=== PATIENT | female | born 1950 | race Caucasian/White ===

== ENCOUNTER → 2016-09-05 | Outpatient (CLI) | payer BC ==
[2016-09-05 10:11] LABS: Blood Urea Nitrogen 16 mg/dL (7-17); Non-African American GFR(MDRD) 58 (>60 ml/min/1.73 sqM)
--- NOTE | 2016-09-05 13:52 | MR ---
EXAMINATION TYPE: MR neck wo/w con DATE OF EXAM: 09/05/2016 COMPARISON: Previous CT scan of the neck dated 04/12/2015 HISTORY: benign neoplasm of major salivary gland, right CONTRAST: Standard multiplanar, multisequence MRI departmental protocol utilizing 20 mL intravenous MultiHance gadolinium contrast. FINDINGS: Visualized intracranial structures appear normal. The orbits appear normal. There is geomet darcy distortion near the axilla. Have sided previous biopsy there is a well-circumscribed heterogeneou sly enhancing 16.5 x 11.5 mm nodule. This may be the deep portion of the gland or it may be immediate ly adjacent to it. The remainder the right parotid gland appears normal as does the left. Submandibul ar glands appear normal. Pharyngeal, oropharyngeal and laryngeal soft tissues appear normal. There is no other significant reza nopathy. There is mild hypertrophic spondylosis in the cervical spine. IMPRESSION: Right-sided neck nodule as described. This may be within the deep substance of the parotid gland or m ay be adjacent to the parotid gland. I understand a tissue diagnosis is already been obtained.
== END | disposition home or self-care (01) ==
LOC: RADMRIMAIN 09:37
PROVIDERS: ATTEND Otolaryngology
DX: R22.1 Localized swelling, mass and lump, neck (principal)
CPT/HCPCS: 82565; 84520; 70543; 36415; A9577

== ENCOUNTER 2017-09-22 09:38 | Day surgery (SDC) | payer BC, MEDICARE ==
[2017-09-18 11:28] VITALS: BMI 31.0
[~2017-09-22 09:38] MED LIST: LACTATED RINGERS 1,000 ML IV SCH; LIDOCAINE 1% 20 ML VIAL (10MG/ML) FOR IV START INTRADERMA PRN
[2017-09-22 10:30] VITALS: TEMP 96.8
[2017-09-22] MEDS ORDERED: LIDOCAINE 1% INJ 10MG/ML (20 ML MDV) ONE (11:08)
[2017-09-22] MEDS ORDERED: PROPOFOL 10 MG/ML 20 ML VIAL IV ONE (11:08)
[2017-09-22 11:52] VITALS: BP 139/65; PULSE 65; RESP 12
--- NOTE | 2017-09-22 11:52 | P.PCN ---
Date of Procedure: 09/22/17 Procedure(s) Performed: Procedures: 1. Esophagogastroduodenoscopy and biopsy. 2. Total colonoscopy and biopsy. Preoperative diagnosis: Epigastric pain and change in bowel habits. Postoperative diagnosis: 1. Hiatal hernia with no obvious esophagitis or complicated reflux disease. 2. Mild antral gastritis. 3. Colon exam reveals less than ideal preparation but no obvious pathology. 4. Biopsies obtained from the right colon. Preparation: HalfLytely prep. Sedation: Was provided by anesthesia. Brief clinical history: The patient is a 67-year-old female who is scheduled for this evaluation because of epigastric and atypical chest pains and chronic reflux symptoms as well as history of colon polyps and change in bowel habits. Her last EGD was in June 2012 and her last colonoscopy was in October 2008. Procedure: With the patient on her left lateral decubitus position and after informed consent and adequate sedation, I passed the Olympus-GIF 160 video upper endoscope through the cricopharyngeus down the esophagus. GE junction was around 34 cm from the incisors and there was a 2 cm sliding hiatal hernia but there was no evidence of acute esophagitis or Urias's esophagus. The endoscope was then passed into the stomach which was insufflated with air and inspected in detail including the retroflex view in the cardia. Finally, the endoscope was passed through the pylorus into the duodenum. Pyloric channel did not show any ulcers. Duodenal bulb, post bulbar area and descending duodenum appeared within normal limits. There was some mottling and erythema in the antrum. I obtained biopsies from the duodenum, antrum and esophagus then the endoscope was withdrawn and I then proceeded to do colonoscopy. Perianal area did not show any fissures or fistulas. There were no masses felt on digital rectal examination. The Olympus CFQ 160L video colonoscope was then inserted in the rectum in the usual fashion and advanced to the cecum. The preparation was less than ideal but there was no obvious pathology. I obtained biopsies from the right colon before the endoscope was withdrawn. The patient tolerated the procedure well. Plan: The patient was reassured. With her history of polyps, I recommended repeat colonoscopy in 5 years. As far as her symptoms are concerned, we will make additional recommendations based on her course and biopsy results. We will keep you updated on her progress.
== END 2017-09-22 12:31 | disposition home or self-care (01) ==
LOC: ORWHC2ENDO 09:38
DX: K29.50 Unspecified chronic gastritis without bleeding (principal); K21.0 Gastro-esophageal reflux disease with esophagitis; R19.4 Change in bowel habit; I10 Essential (primary) hypertension; J45.909 Unspecified asthma, uncomplicated; G47.33 Obstructive sleep apnea (adult) (pediatric); Z79.890 Hormone replacement therapy; Z79.1 Long term (current) use of non-steroidal anti-inflammatories (NSAID)
CPT/HCPCS: 88305; 45380; 43239; J2001; J2704

== ENCOUNTER → 2017-10-17 | Outpatient (CLI) | payer MEDICARE ==
--- NOTE | 2017-10-19 13:32 | MR ---
EXAMINATION TYPE: MR neck wo/w con DATE OF EXAM: 10/17/2017 COMPARISON: 09/05/2016 HISTORY: 67-year-old female follow up benign neoplasm of major salivary gland, previous MRI 2016. Technique: Multiplanar, multisequence images of the neck were obtained before and after administratio n of 7.5 mL intravenous Gadavist gadolinium contrast. FINDINGS: Redemonstrated T2 hyperintense and T1 hypointense circumscribed lesion within the deep lobe of the ri ght parotid gland. This measures 1.3 x 1.6 x 1.2 cm versus 1.3 x 1.4 x 1.2 cm on 09/05/2016, not signi ficantly changed. This mass is lobulated with possible internal septation and shows diffuse homogeneo us enhancement similar to prior exam. A couple prominent left upper cervical lymph nodes posterior to the submandibular gland measuring up to 7 mm in short axis are also unchanged to less pronounced. No cervical lymphadenopathy by size criteria. No additional mass is seen. No enhancing lesion seen along the mucosal space. The parotid glands appear satisfactory. The thyroid gland is atrophic. IMPRESSION: Relatively stable homogeneously enhancing circumscribed mass in the deep right parotid space measurin g 1.6 x 1.3 x 1.2 cm versus 1.4 x 1.3 x 1.2 cm on 09/05/2016, not significantly changed. No new mass o r lymphadenopathy is identified.
== END | disposition home or self-care (01) ==
LOC: RADMRIMAIN 13:34
PROVIDERS: ATTEND Otolaryngology
DX: K11.8 Other diseases of salivary glands (principal)
CPT/HCPCS: 82565; 84520; 70543; 36415; A9581

== ENCOUNTER → 2018-03-17 | Outpatient (CLI) | payer MEDICARE | LOC: CPPFTMAIN 09:57 | PROVIDERS: ATTEND Family Medicine | DX: J44.9 Chronic obstructive pulmonary disease, unspecified (principal) | CPT/HCPCS: 94060; 94726; 94729 ==

== ENCOUNTER → 2018-03-20 | Outpatient (CLI) | payer MEDICARE ==
--- NOTE | 2018-03-23 10:56 | BD ---
EXAMINATION TYPE: Axial Bone Density DATE OF EXAM: 03/20/2018 COMPARISON: NONE CLINICAL HISTORY: Postmenopausal female. Osteoporosis screening. Height: 5 FT 2 IN Weight: 181 FRAX RISK QUESTIONS: History of Fracture in Adulthood: YES Secondary Osteoporosis: 3. Menopause before 45: YES RISK FACTORS HISTORY OF: Postmenopausal woman: TOTAL HYST AGE 37 Take estrogen and/or progesterone medications: TOOK HRT FOR ONE YEAR AFTER HYST Lost more than 2 inches in height since high school: YES MEDICATIONS: Thyroid Medications: YES Which medication: SYNTHROID How Long: OVER 40 YEARS Additional Medications: EFFEXOR, LASIX, L THYROXINE, THEOPHYLLINE, ATTENOLOL, PANTOPRAZOLE, ATORVASTA TIN Additional History: EXAM MEASUREMENTS: Bone mineral densitometry was performed using the mobiTeris System. Bone mineral density as measured about the Lumbar spine is: ----- L1-L4(G/cm2): 1.123 T Score Values are as follows: ----- L2: -1.0 ----- L3: 0.1 ----- L4: -0.5 ----- L1-L4: -0.5 BASELINE Bone mineral density about the R hip (g/cm2): 0.685 Bone mineral density about the L hip (g/cm2): 0.736 T Score values are as follows: -----R Neck: -2.5 -----L Neck: -2.2 -----R Total: -2.3 -----L Total: -2.2 BASELINE IMPRESSION: Osteopenia (T Score between -2.5 and -1). Values approach osteoporosis. There is slightly increased risk of fracture and the patient may be considered for treatment. Re-Screen 2-5 years. NOTE: T-SCORE=SD OF THE YOUNG ADULT MEAN.
--- NOTE | 2018-03-27 08:03 | MM ---
Reason for exam: screening (asymptomatic). History: Patient is postmenopausal. Took estrogen for 1 year beginning at age 37. MG 3D Screening Mammo W/Cad Bilateral CC and MLO view(s) were taken. There are scattered fibroglandular densities. Chronic nodularity in the right breast. Multiple nodes are present. No significant changes when compared with prior studies. ASSESSMENT: Negative, BI-RAD 1 RECOMMENDATION: Clinical management. Manage on a clinical basis the left lateral breast pain. Routine screening mammogram of both breasts in 1 year.
== END | disposition home or self-care (01) ==
LOC: RADMAMWWP 14:33
PROVIDERS: ATTEND Family Medicine
DX: Z12.31 Encounter for screening mammogram for malignant neoplasm of breast (principal); M85.851 Other specified disorders of bone density and structure, right thigh; M85.852 Other specified disorders of bone density and structure, left thigh; M85.88 Other specified disorders of bone density and structure, other site
CPT/HCPCS: 77063; 77067; 77080

== ENCOUNTER 2018-04-17 10:17 | Inpatient (IN) | payer MEDICARE ==
[2018-04-17] MEDS ORDERED: ONDANSETRON 4 MG/2 ML VIAL IVP STA (10:46)
[2018-04-17] MEDS ORDERED: MORPHINE SULFATE 4 MG/ML SYRINGE IV STA (10:46)
[2018-04-17] MEDS ORDERED: SODIUM CHLORIDE 0.9% 1,000 ML IV STA ×3 (10:46→14:30)
[2018-04-17] MEDS ORDERED: SODIUM CHLORIDE 0.9% 500 ML 500 ML IV STA (10:46)
[2018-04-17 11:21] LABS: HCT 47.2 % (34.0-46.0); HGB 15.6 gm/dL (11.4-16.0); MCHC 33.1 g/dL (31.0-37.0); MCV 84.6 fL (80.0-100.0); Mean Platelet Volume 8.8; Platelet Count 163 k/uL (150-450); RBC 5.58 m/uL (3.80-5.40); RDW 13.7 % (11.5-15.5); WBC 16.5 k/uL (3.8-10.6)
--- NOTE | 2018-04-17 11:21 | ED ---
Abdominal Pain HPI - General Chief Complaint: Abdominal Pain Stated Complaint: nvd, abdominal pain Time Seen by Provider: 04/17/18 10:22 Source: patient Mode of arrival: ambulatory Limitations: no limitations - History of Present Illness MD Complaint: abdominal pain, flank pain -: days(s) Location: RUQ Radiation: RUQ Migration to: no migration, R flank Severity: moderate Quality: aching Consistency: constant Improves With: nothing Worsens With: nothing Associated Symptoms: nausea - Related Data Home Medications Medication Instructions Recorded Confirmed Atenolol 25 mg PO HS 04/04/15 04/17/18 Furosemide [Lasix] 20 mg PO DAILY 04/04/15 04/17/18 Levothyroxine Sodium [Synthroid] 125 mcg PO QAM 04/04/15 04/17/18 Theophylline 24 Hour [Yonatan-24] 400 mg PO QAM 04/04/15 04/17/18 Theophylline Anhydrous 200 mg PO HS 09/18/17 04/17/18 [Theophylline] Nitroglycerin Sl Tabs [Nitrostat] 0.4 mg SUBLINGUAL Q5M PRN 04/17/18 04/17/18 Pantoprazole Sodium 40 mg PO DAILY 04/17/18 04/17/18 Venlafaxine HCl ER [Effexor XR] 75 mg PO HS 04/17/18 04/17/18 Allergies Allergy/AdvReac Type Severity Reaction Status Date / Time No Known Allergies Allergy Verified 04/17/18 11:26 Review of Systems ROS Statement: Those systems with pertinent positive or pertinent negative responses have been documented in the HPI. ROS Other: All systems not noted in ROS Statement are negative. Past Medical History Past Medical History: Asthma, GERD/Reflux, Hypertension, Sleep Apnea/CPAP/BIPAP Additional Past Medical History / Comment(s): stool urgency,some bleeding with stools,steroid injection to hip August 2017,no cpap History of Any Multi-Drug Resistant Organisms: None Reported Past Surgical History: Cholecystectomy, Hysterectomy Additional Past Surgical History / Comment(s): fatty tissue removed under left breast,bronchoscopy Past Anesthesia/Blood Transfusion Reactions: No Reported Reaction Additional Past Anesthesia/Blood Transfusion Reaction / Comment(s): no hx blood transfusion Past Psychological History: Depression Smoking Status: Former smoker Past Alcohol Use History: None Reported Past Drug Use History: None Reported - Past Family History Daughter(s) Family Medical History: Cancer Additional Family Medical History / Comment(s): form of leukemia Mother Family Medical History: Cancer Additional Family Medical History / Comment(s): lung Father Family Medical History: Cancer Additional Family Medical History / Comment(s): lung General Exam Limitations: no limitations General appearance: alert, in no apparent distress Head exam: Present: atraumatic, normocephalic, normal inspection Eye exam: Present: normal appearance, PERRL, EOMI. Absent: scleral icterus, conjunctival injection, periorbital swelling ENT exam: Present: normal exam, mucous membranes moist Neck exam: Present: normal inspection. Absent: tenderness, meningismus, lymphadenopathy Respiratory exam: Present: normal lung sounds bilaterally. Absent: respiratory distress, wheezes, rales, rhonchi, stridor Cardiovascular Exam: Present: regular rate, normal rhythm, normal heart sounds. Absent: systolic murmur, diastolic murmur, rubs, gallop, clicks GI/Abdominal exam: Present: soft, normal bowel sounds. Absent: distended, tenderness, guarding, rebound, rigid Extremities exam: Present: normal inspection, full ROM, normal capillary refill. Absent: tenderness, pedal edema, joint swelling, calf tenderness Back exam: Present: normal inspection Neurological exam: Present: alert, oriented X3, CN II-XII intact Psychiatric exam: Present: normal affect, normal mood Skin exam: Present: warm, dry, intact, normal color. Absent: rash Course Vital Signs 04/17/18 04/17/18 10:25 12:21 Temperature 97.7 F 97.9 F Pulse Rate 60 96 Respiratory 22 18 Rate Blood Pressure 97/63 102/65 O2 Sat by Pulse 97 96 Oximetry - Reevaluation(s) Reevaluation #1: 04/17/18 13:42 medical record is reviewed Reevaluation #2: 04/17/18 13:42 patient is improving with IVF, pain control Procedures - Sepsis Sepsis Focused Exam #1 Time Sepsis Criteria Met: 13:00 Sepsis Focused Exam Date: 04/17/18 Sepsis Focused Exam Time: 13:15 Sepsis Focused Exam Complete: Yes Vital Signs & RN Notes Reviewed: Yes Capillary Refill: < 2 Seconds: Fingers, Toes Peripheral Pulses: Normal: Radial (R), Radial (L), Posterior Tibialis (R), Posterior Tibialis (L), Dorsalis Pedis (R), Dorsalis Pedis (L) Skin Color: Pallor Respiratory Exam: normal lung sounds Cardiovascular Exam: regular rate Medical Decision Making - Lab Data Result diagrams: 04/17/18 11:03 04/17/18 11:03 Lab Results 04/17/18 04/17/18 04/17/18 Range/Units 11:03 11:03 11:03 WBC 16.5 H (3.8-10.6) k/uL RBC 5.58 H (3.80-5.40) m/uL Hgb 15.6 (11.4-16.0) gm/dL Hct 47.2 H (34.0-46.0) % MCV 84.6 (80.0-100.0) fL MCH 28.0 (25.0-35.0) pg MCHC 33.1 (31.0-37.0) g/dL RDW 13.7 (11.5-15.5) % Plt Count 163 (150-450) k/uL Neutrophils % (Manual) 66 % Band Neutrophils % 24 % Lymphocytes % (Manual) 4 % Monocytes % (Manual) 3 % Metamyelocytes % 4 % Myelocytes % 1 % Neutrophils # (Manual) 14.80 H (1.3-7.7) k/uL Lymphocytes # (Manual) 0.66 L (1.0-4.8) k/uL Monocytes # (Manual) 0.50 (0-1.0) k/uL Metamyelocytes # (Man) 0.66 H (0) k/uL Myelocytes # (Manual) 0.17 H (0) k/uL Nucleated RBCs 0 (0-0) /100 WBC Manual Slide Review Performed Toxic Granulation Present Toxic Vacuolation Present Large Platelets Present RBC Morphology Normal Sodium 138 (137-145) mmol/L Potassium 3.7 (3.5-5.1) mmol/L Chloride 101 (98-107) mmol/L Carbon Dioxide 18 L (22-30) mmol/L Anion Gap 19 mmol/L BUN 45 H (7-17) mg/dL Creatinine 2.39 H (0.52-1.04) mg/dL Est GFR (CKD-EPI)AfAm 24 (>60 ml/min/1.73 sqM) Est GFR (CKD-EPI)NonAf 21 (>60 ml/min/1.73 sqM) Glucose 114 H (74-99) mg/dL Plasma Lactic Acid Percy 6.9 H* (0.7-2.0) mmol/L Calcium 9.1 (8.4-10.2) mg/dL Total Bilirubin 2.2 H (0.2-1.3) mg/dL AST 25 (14-36) U/L ALT 24 (9-52) U/L Alkaline Phosphatase 72 (38-126) U/L Total Protein 6.3 (6.3-8.2) g/dL Albumin 3.6 (3.5-5.0) g/dL Amylase 38 (30-110) U/L Lipase 29 (23-300) U/L Urine Color Urine Appearance (Clear) Urine pH (5.0-8.0) Ur Specific [place] (1.001-1.035) Urine Protein (Negative) Urine Glucose (UA) (Negative) Urine Ketones (Negative) Urine Blood (Negative) Urine Nitrite (Negative) Urine Bilirubin (Negative) Urine Urobilinogen (<2.0) mg/dL Ur Leukocyte Esterase (Negative) Urine RBC (0-5) /hpf Urine WBC (0-5) /hpf Urine WBC Clumps (None) /hpf Ur Squamous Epith Cells (0-4) /hpf Amorphous Sediment (None) /hpf Urine Mucus (None) /hpf 04/17/18 Range/Units 12:05 WBC (3.8-10.6) k/uL RBC (3.80-5.40) m/uL Hgb (11.4-16.0) gm/dL Hct (34.0-46.0) % MCV (80.0-100.0) fL MCH (25.0-35.0) pg MCHC (31.0-37.0) g/dL RDW (11.5-15.5) % Plt Count (150-450) k/uL Neutrophils % (Manual) % Band Neutrophils % % Lymphocytes % (Manual) % Monocytes % (Manual) % Metamyelocytes % % Myelocytes % % Neutrophils # (Manual) (1.3-7.7) k/uL Lymphocytes # (Manual) (1.0-4.8) k/uL Monocytes # (Manual) (0-1.0) k/uL Metamyelocytes # (Man) (0) k/uL Myelocytes # (Manual) (0) k/uL Nucleated RBCs (0-0) /100 WBC Manual Slide Review Toxic Granulation Toxic Vacuolation Large Platelets RBC Morphology Sodium (137-145) mmol/L Potassium (3.5-5.1) mmol/L Chloride (98-107) mmol/L Carbon Dioxide (22-30) mmol/L Anion Gap mmol/L BUN (7-17) mg/dL Creatinine (0.52-1.04) mg/dL Est GFR (CKD-EPI)AfAm (>60 ml/min/1.73 sqM) Est GFR (CKD-EPI)NonAf (>60 ml/min/1.73 sqM) Glucose (74-99) mg/dL Plasma Lactic Acid Percy (0.7-2.0) mmol/L Calcium (8.4-10.2) mg/dL Total Bilirubin (0.2-1.3) mg/dL AST (14-36) U/L ALT (9-52) U/L Alkaline Phosphatase (38-126) U/L Total Protein (6.3-8.2) g/dL Albumin (3.5-5.0) g/dL Amylase (30-110) U/L Lipase (23-300) U/L Urine Color Dark Yellow Urine Appearance Turbid H (Clear) Urine pH 5.0 (5.0-8.0) Ur Specific [place] 1.017 (1.001-1.035) Urine Protein 1+ H (Negative) Urine Glucose (UA) Trace H (Negative) Urine Ketones Trace H (Negative) Urine Blood Trace H (Negative) Urine Nitrite Negative (Negative) Urine Bilirubin Negative (Negative) Urine Urobilinogen <2.0 (<2.0) mg/dL Ur Leukocyte Esterase Large H (Negative) Urine RBC 18 H (0-5) /hpf Urine WBC 85 H (0-5) /hpf Urine WBC Clumps Occasional H (None) /hpf Ur Squamous Epith Cells 23 H (0-4) /hpf Amorphous Sediment Rare H (None) /hpf Urine Mucus Few H (None) /hpf Critical Care Time Critical Care Time: Yes Total Critical Care Time: 31 Disposition Clinical Impression: Abdominal pain, Community acquired bacterial pneumonia, ARF (acute renal failure), Sepsis, Severe sepsis Disposition: ADMITTED IP TO THIS HOSP Condition: Serious Is patient prescribed a controlled substance at d/c from ED?: No Referrals: Laura Duenas DO [Primary Care Provider] - 1-2 days
[2018-04-17 11:28] LABS: Albumin 3.6 g/dL (3.5-5.0); Calcium 9.1 mg/dL (8.4-10.2); Potassium 3.7 mmol/L (3.5-5.1); Total Bilirubin 2.2 mg/dL (0.2-1.3); Total Protein 6.3 g/dL (6.3-8.2)
[2018-04-17 11:52] LABS: Band Neutrophils % 24 %; Lymphocytes # (M) 0.66 k/uL (1.0-4.8); Metamyelocytes # (M) 0.66 k/uL (0); Metamyelocytes % 4 %; Myelocytes # (M) 0.17 k/uL (0); Myelocytes % 1 %; Neutrophils % (M) 66 %; Nucleated Red Blood Cells 0 /100 WBC (0-0); Total Cells Counted 200
[2018-04-17 11:53] LABS: Toxic Granulation Present; Toxic Vacuolation Present
[2018-04-17 11:54] LABS: Large Platelets Present
--- NOTE | 2018-04-17 12:25 | CT ---
EXAMINATION TYPE: CT abdomen pelvis wo con DATE OF EXAM: 04/17/2018 HISTORY: Right sided abdominal pain CT DLP: 543.3 mGycm. Automated Exposure Control for Dose Reduction was Utilized. TECHNIQUE: CT scan of the abdomen and pelvis is performed without oral or IV contrast. COMPARISON: NONE FINDINGS: Within the limitations of a non-contrast study, the following observations are made. LUNG BASES: There is right basilar consolidation with air bronchograms, correlate for focal pneumonia . There is tiny pericardial effusion. LIVER/GB: Liver is diffusely low dense consistent with fatty infiltration. Cholecystectomy clips are identified. PANCREAS: No significant abnormality is seen. SPLEEN: No significant abnormality is seen. ADRENALS: No significant abnormality is seen. KIDNEYS: No renal calculi or hydronephrosis is evident bilaterally. Bladder is empty. BOWEL: Evaluation bowel suboptimal secondary to lack of enteric contrast. No suspicious small or larg e bowel dilatation is present. GENITAL ORGANS: Uterus is surgically absent or markedly atrophic. A few scattered pelvic phleboliths are present LYMPH NODES: No greater than 1cm abdominal or pelvic lymph nodes are appreciated. OSSEOUS STRUCTURES: Mild to moderate multilevel spurring in the thoracic spine is seen. There is mild to moderate narrowing of both hip joints. OTHER: Mild/moderate calcified plaque of aorta extends into branch vessels. IMPRESSION: Posterior right lower lobe consolidation with air bronchograms suspicious for focal right basilar pneumonia may be accounting for patient's symptoms. Correlate clinically.
[2018-04-17 12:26] LABS: Amorphous Sediment,Urine Rare /hpf; Appearance,Urine Turbid (Clear); Bilirubin,Urine Negative (Negative); Blood,Urine Trace (Negative); Color,Urine Dark Yellow; Glucose,Urine (UA) Trace (Negative); Ketones,Urine Trace (Negative); Leukocyte Esterase,Urine Large (Negative); Mucus,Urine Few /hpf; Nitrite,Urine Negative (Negative); Protein,Urine 1+ (Negative); RBC,Urine 18 /hpf (0-5); Specific Gravity,Urine 1.017 (1.001-1.035); Squamous Epithelial Cell,Urine 23 /hpf (0-4); Urobilinogen,Urine <2.0 mg/dL (<2.0); WBC,Urine 85 /hpf (0-5)
[2018-04-17] MEDS ORDERED: PNEUMONIA PROTOCOL UTILIZED 1 EACH MISC PO PRN (13:31)
[2018-04-17] MEDS ORDERED: AZITHROMYCIN 500 MG in SODIUM CHLORIDE 0.9% 250 ML IVPB STA (13:36)
[2018-04-17] MEDS ORDERED: DILTIAZEM DRIP BOLUS FROM BAG 1 MG SOLN IV ONE ×2 (14:22→15:02)
[2018-04-17] MEDS ORDERED: DILTIAZEM 125 MG in SODIUM CHLORIDE 0.9% 100 ML IV SCH (14:30)
[2018-04-17] MEDS: IPRATROPIUM-ALBUTEROL 3 ML NEB INHALATION SCH ×2 (16:01→20:12)
[2018-04-17] MEDS ORDERED: HEPARIN SODIUM,PORCINE 5,000 UNIT/ML 1 ML VIAL IV ONE (16:56)
[2018-04-17] MEDS ORDERED: HEPARIN SODIUM,PORCINE 5,000 UNIT/ML 1 ML VIAL IV PRN (16:56)
[2018-04-17] MEDS: SODIUM CHLORIDE 0.9% 1,000 ML IV SCH ×2 (17:00→20:00)
[2018-04-17] MEDS ORDERED: HEPARIN SOD,PORK IN 0.45% NACL 25,000 UNIT in 0.45% NACL 1 250ML.BAG IV SCH (17:00)
[2018-04-17 17:43] LABS: INR 1.1 (<1.2); Partial Thromboplastin Time 38.4 sec (22.0-30.0); Prothrombin Time 11.4 sec (9.0-12.0)
--- NOTE | 2018-04-17 18:37 | P.CNPUL ---
History of Present Illness Consult date: 04/17/18 Requesting physician: Helena Elias Reason for consult: dyspnea, abnormal CXR/CT (Right-sided chest pain) Chief complaint: Shortness of breath, cough, right-sided chest discomfort History of present illness: This is a very pleasant 67-year-old female patient who follows with Dr. Duenas as her primary care physician. She has a history of mild intermittent chronic bronchial asthma, esophageal reflux disease, hypertension, hypothyroidism. She has a remote history of smoking. He had recently been complaining of flulike symptoms some nausea no significant vomiting. She also has having some right upper quadrant pain that was moving into her right flank area. She was had undergone a CAT scan of the abdomen and pelvis which revealed a posterior right lower lobe consolidation with air bronchograms suspicious for focal right basilar pneumonia. We count 16.5. Creatinine 2.39. Potassium 6.9. Urinalysis with elevated WBCs. He was quite fatigued and lethargic. In the emergency room she received received 3 L of IV fluid resuscitation. She has been initiated on ceftriaxone and azithromycin. She also had an episode of atrial fibrillation with rapid ventricular response was initiated on a heparin drip. She is currently in normal sinus rhythm. She is seen today in consultation in the intensive care unit. She is awake and alert in no acute distress. She is maintaining good O2 saturations in the 90s on 2 L/ m per nasal cannula. She's been afebrile. Lactic improved to 3.3. Review of Systems 14 point review of system was conducted. All negative other than as mentioned in HPI. Past Medical History Past Medical History: Asthma, GERD/Reflux, Hypertension, Sleep Apnea/CPAP/BIPAP Additional Past Medical History / Comment(s): stool urgency,some bleeding with stools,steroid injection to hip August 2017,no cpap History of Any Multi-Drug Resistant Organisms: None Reported Past Surgical History: Cholecystectomy, Hysterectomy Additional Past Surgical History / Comment(s): fatty tissue removed under left breast,bronchoscopy Past Anesthesia/Blood Transfusion Reactions: No Reported Reaction Additional Past Anesthesia/Blood Transfusion Reaction / Comment(s): no hx blood transfusion Past Psychological History: Depression Smoking Status: Former smoker Past Alcohol Use History: None Reported Past Drug Use History: None Reported - Past Family History Daughter(s) Family Medical History: Cancer Additional Family Medical History / Comment(s): form of leukemia Mother Family Medical History: Cancer Additional Family Medical History / Comment(s): lung Father Family Medical History: Cancer Additional Family Medical History / Comment(s): lung Medications and Allergies Home Medications Medication Instructions Recorded Confirmed Type Atenolol 25 mg PO HS 04/04/15 04/17/18 History Furosemide [Lasix] 20 mg PO DAILY 04/04/15 04/17/18 History Levothyroxine Sodium [Synthroid] 125 mcg PO QAM 04/04/15 04/17/18 History Theophylline 24 Hour [Yonatan-24] 400 mg PO QAM 04/04/15 04/17/18 History Theophylline Anhydrous 200 mg PO HS 09/18/17 04/17/18 History [Theophylline] Nitroglycerin Sl Tabs [Nitrostat] 0.4 mg SUBLINGUAL Q5M PRN 04/17/18 04/17/18 History Pantoprazole Sodium 40 mg PO DAILY 04/17/18 04/17/18 History Venlafaxine HCl ER [Effexor XR] 75 mg PO HS 04/17/18 04/17/18 History Allergies Allergy/AdvReac Type Severity Reaction Status Date / Time No Known Allergies Allergy Verified 04/17/18 11:26 Physical Exam Vitals: Vital Signs Temp Pulse Resp BP Pulse Ox 04/17/18 14:59 97.9 F 142 H 18 113/74 04/17/18 14:45 154 H 18 114/81 04/17/18 14:26 158 H 18 155/90 04/17/18 12:21 97.9 F 96 18 102/65 96 04/17/18 10:25 97.7 F 60 22 97/63 97 Intake and Output 04/17/18 04/17/18 04/17/18 06:59 14:59 22:59 Other: Weight 81.647 kg GENERAL EXAM: Alert, active, comfortable in no apparent distress. On nasal canula 2 L. HEAD: Normocephalic. EYES: Normal reaction of pupils, equal size. NOSE: Clear with pink turbinates. THROAT: No erythema or exudates. NECK: No masses, no JVD. CHEST: No chest wall deformity. LUNGS: Equal air entry with crackles in the right posterior base.. CVS: S1 and S2 normal with no audible murmur, regular rhythm. ABDOMEN: No hepatosplenomegaly, normal bowel sounds, no guarding or rigidity. SPINE: No scoliosis or deformity SKIN: No rashes CENTRAL NERVOUS SYSTEM: No focal deficits, tone is normal in all 4 extremities. EXTREMITIES: There is no peripheral edema. No clubbing, no cyanosis. Peripheral pulses are intact. Results - Laboratory Findings CBC and BMP: 04/17/18 11:03 04/17/18 11:03 PT/INR, D-dimer PT 11.4 sec (9.0-12.0) 04/17/18 11:03 INR 1.1 (<1.2) 04/17/18 11:03 Abnormal lab findings: Abnormal Labs 04/17/18 04/17/18 04/17/18 11:03 11:03 11:03 WBC 16.5 H RBC 5.58 H Hct 47.2 H Neutrophils # (Manual) 14.80 H Lymphocytes # (Manual) 0.66 L Metamyelocytes # (Man) 0.66 H Myelocytes # (Manual) 0.17 H APTT Carbon Dioxide 18 L BUN 45 H Creatinine 2.39 H Glucose 114 H Plasma Lactic Acid Percy 6.9 H* Total Bilirubin 2.2 H Urine Appearance Urine Protein Urine Glucose (UA) Urine Ketones Urine Blood Ur Leukocyte Esterase Urine RBC Urine WBC Urine WBC Clumps Ur Squamous Epith Cells Amorphous Sediment Urine Mucus 04/17/18 04/17/18 04/17/18 11:03 12:05 14:50 WBC RBC Hct Neutrophils # (Manual) Lymphocytes # (Manual) Metamyelocytes # (Man) Myelocytes # (Manual) APTT 38.4 H Carbon Dioxide BUN Creatinine Glucose Plasma Lactic Acid Percy 3.3 H* Total Bilirubin Urine Appearance Turbid H Urine Protein 1+ H Urine Glucose (UA) Trace H Urine Ketones Trace H Urine Blood Trace H Ur Leukocyte Esterase Large H Urine RBC 18 H Urine WBC 85 H Urine WBC Clumps Occasional H Ur Squamous Epith Cells 23 H Amorphous Sediment Rare H Urine Mucus Few H - Diagnostic Findings Chest x-ray: image reviewed CT scan - chest: image reviewed Assessment and Plan Assessment: Impression: #1 Right-sided chest discomfort secondary to an acute exacerbation of community- acquired right lower lobe pneumonia. Currently on ceftriaxone and azithromycin. #2 Lactic acidosis secondary to above. Status post 4 L IV fluid resuscitation. Current lactic 3.3. #3 Acute renal failure suspect secondary to dehydration and hypotension current creatinine 2.39. #4 Leukocytosis secondary to above. #5 Suspected urinary tract infection, cultures pending. #6 Brief episode of atrial fibrillation with rapid ventricular response, currently in normal sinus rhythm. #7 Mild intermittent chronic bronchial asthma, currently inactive and stable. #8 Remote history of chronic tobacco dependence. #9 Hypothyroidism. #10 Obesity Plan: The patient was seen and evaluated by Dr. Omalley. We'll continue ceftriaxone and azithromycin for now. Give an additional bolus of IV fluid resuscitation. Hold off on heparin drip for now. Patient remains in sinus rhythm. Continue to monitor her here closely in the intensive care unit. Resume home medications. Hold off on beta blockers until pressure improves. Discontinue theophylline. We will continue to follow and make further recommendations based on her clinical status. I, the cosigning physician, performed a history & physical examination of the patient. Lungs sounds scattered rhonchi more so on the right posterior base. Maintaining good O2 saturations in the 90s on 2 L/m per nasal cannula. I discussed the assessment and plan of care with my nurse practitioner, Nusrat Cha. I attest to the above consultation as dictated by her. Time with Patient: Greater than 30
[2018-04-17] MEDS ORDERED: NITROGLYCERIN SL TABS 0.4 MG TAB SUBLINGUAL PRN (18:38)
[2018-04-17] MEDS: VENLAFAXINE HCL ER 75 MG CAP PO SCH (21:51)
[2018-04-17] MEDS: ATENOLOL 25 MG TAB PO SCH (21:51)
--- NOTE | 2018-04-17 23:09 | P.HPIM ---
History of Present Illness H&P Date: 04/17/18 Chief Complaint: RUQ ABD PAIN Very pleasant 67 y/o female comes in with c/o RUQ abd pain. She says that she has been having flu like symptoms for the past few days along with diarrhea. She started having abdominal pain in the RUQ and right flank area. She thus came into the ER for further evaluation and managment. She did not c/o chest pain, racing heart,no abd pain, no nausea, no vomiting, no headache, no itch or rash. ER course : Patient had lab work done, the results of which are below. CT abd and pelvis was done which shows right basilar consolidation. While in the ER, she went into AFIB WITH RVR. She was started on antibiotics, heparin and cardizem, IVfluids bolus and started on NS at 150cc/hr/ Review of Systems All systems: negative Past Medical History Past Medical History: Asthma, GERD/Reflux, Hypertension, Sleep Apnea/CPAP/BIPAP Additional Past Medical History / Comment(s): stool urgency,some bleeding with stools,steroid injection to hip August 2017,no cpap History of Any Multi-Drug Resistant Organisms: None Reported Past Surgical History: Cholecystectomy, Hysterectomy Additional Past Surgical History / Comment(s): fatty tissue removed under left breast,bronchoscopy Past Anesthesia/Blood Transfusion Reactions: No Reported Reaction Additional Past Anesthesia/Blood Transfusion Reaction / Comment(s): no hx blood transfusion Past Psychological History: Depression Smoking Status: Former smoker Past Alcohol Use History: None Reported Past Drug Use History: None Reported - Past Family History Daughter(s) Family Medical History: Cancer Additional Family Medical History / Comment(s): form of leukemia Mother Family Medical History: Cancer Additional Family Medical History / Comment(s): lung Father Family Medical History: Cancer Additional Family Medical History / Comment(s): lung Medications and Allergies Home Medications Medication Instructions Recorded Confirmed Type Atenolol 25 mg PO HS 04/04/15 04/17/18 History Furosemide [Lasix] 20 mg PO DAILY 04/04/15 04/17/18 History Levothyroxine Sodium [Synthroid] 125 mcg PO QAM 04/04/15 04/17/18 History Theophylline 24 Hour [Yonatan-24] 400 mg PO QAM 04/04/15 04/17/18 History Theophylline Anhydrous 200 mg PO HS 09/18/17 04/17/18 History [Theophylline] Nitroglycerin Sl Tabs [Nitrostat] 0.4 mg SUBLINGUAL Q5M PRN 04/17/18 04/17/18 History Pantoprazole Sodium 40 mg PO DAILY 04/17/18 04/17/18 History Venlafaxine HCl ER [Effexor XR] 75 mg PO HS 04/17/18 04/17/18 History Allergies Allergy/AdvReac Type Severity Reaction Status Date / Time No Known Allergies Allergy Verified 04/17/18 11:26 Physical Exam Vitals: Vital Signs Temp Pulse Resp BP Pulse Ox 04/17/18 20:25 87 04/17/18 20:14 90 04/17/18 19:10 86 19 92 L 04/17/18 19:00 86 13 93 L 04/17/18 18:50 86 33 H 93 L 04/17/18 18:40 88 20 93 L 04/17/18 18:30 88 19 93 L 04/17/18 18:20 85 19 93 L 04/17/18 18:10 89 16 91 L 04/17/18 18:00 91 17 91 L 04/17/18 17:50 89 20 91 L 04/17/18 17:40 95 19 92 L 04/17/18 17:30 97 20 91 L 04/17/18 17:20 97 19 92 L 04/17/18 17:10 95 22 91 L 04/17/18 17:00 98 18 91 L 04/17/18 16:50 161 H 17 89 L 04/17/18 16:40 163 H 17 90 L 04/17/18 16:30 137 H 16 88 L 04/17/18 16:20 152 H 19 04/17/18 16:19 97.7 F 158 H 20 97 04/17/18 15:30 100/71 04/17/18 15:20 142 H 18 93/74 89 L 04/17/18 15:10 158 H 16 112/67 88 L 04/17/18 15:00 134 H 13 113/74 04/17/18 14:59 97.9 F 142 H 18 113/74 04/17/18 14:50 156 H 18 114/81 04/17/18 14:45 154 H 18 114/81 04/17/18 14:40 161 H 18 122/90 04/17/18 14:30 170 H 21 155/90 04/17/18 14:26 158 H 18 155/90 04/17/18 14:20 168 H 15 135/70 04/17/18 14:10 154 H 18 105/67 04/17/18 14:00 161 H 14 105/67 04/17/18 13:50 97 21 105/67 04/17/18 13:40 92 13 105/67 04/17/18 13:30 97 22 108/66 89 L 04/17/18 13:20 93 16 108/66 94 L 04/17/18 13:10 96 14 108/66 94 L 04/17/18 13:00 94 16 108/66 93 L 04/17/18 12:50 98 10 L 104/64 90 L 04/17/18 12:40 98 13 104/64 92 L 04/17/18 12:30 98 12 102/65 04/17/18 12:21 97.9 F 96 18 102/65 96 04/17/18 12:20 97 23 102/65 94 L 04/17/18 12:10 102/65 04/17/18 12:00 102/65 04/17/18 11:50 102 H 20 102/65 91 L 04/17/18 11:40 104 H 20 102/65 91 L 04/17/18 11:30 103 H 18 102/63 90 L 04/17/18 11:20 102 H 55 H 102/63 90 L 04/17/18 11:10 105 H 19 102/63 91 L 04/17/18 11:00 105/66 91 L 04/17/18 10:50 102/57 92 L 04/17/18 10:45 102/57 89 L 04/17/18 10:25 97.7 F 60 22 97/63 97 Intake and Output 04/17/18 04/17/18 04/17/18 06:59 14:59 22:59 Intake Total 2250 Output Total 250 Balance 2000 Intake: Intake, IV Titration 1700 Amount Sodium Chloride 0.9% 1, 600 000 ml @ 150 mls/hr IV . Q6H40M [facility] Rx#:[id number] Sodium Chloride 0.9% 1, 1000 000 ml @ 999 mls/hr IV . Q1H1M STA Rx#:[id number] cefTRIAXone 1 gm In 100 Sodium Chloride 0.9% 50 ml @ 100 mls/hr IVPB Q24H [facility] Rx#:[id number] Oral 550 Output: Urine 250 Other: Voiding Method Indwelling Catheter Weight 81.647 kg - Constitutional General appearance: cooperative, mild distress - EENT Eyes: PERRLA - Neck Neck: no lymphadenopathy, no normal ROM, no other, no rigidity, no stridor, no thyromegaly - Respiratory Respiratory: right: diminished - Cardiovascular Heart rate: 150 Rhythm: irregularly irregular Heart sounds: normal: S1, S2 - Gastrointestinal General gastrointestinal: absent bowel sounds, normal bowel sounds Localized gastrointestinal: tender: RUQ - Neurologic Neurologic: CNII-XII intact - Musculoskeletal Musculoskeletal: strength equal bilaterally - Psychiatric Psychiatric: A&O x's 3, appropriate affect Results CBC & Chem 7: 04/17/18 11:03 04/17/18 11:03 Labs: Abnormal Lab Results - Last 24 Hours (Table) 04/17/18 04/17/18 04/17/18 Range/Units 11:03 11:03 11:03 WBC 16.5 H (3.8-10.6) k/uL RBC 5.58 H (3.80-5.40) m/uL Hct 47.2 H (34.0-46.0) % Neutrophils # (Manual) 14.80 H (1.3-7.7) k/uL Lymphocytes # (Manual) 0.66 L (1.0-4.8) k/uL Metamyelocytes # (Man) 0.66 H (0) k/uL Myelocytes # (Manual) 0.17 H (0) k/uL APTT (22.0-30.0) sec Carbon Dioxide 18 L (22-30) mmol/L BUN 45 H (7-17) mg/dL Creatinine 2.39 H (0.52-1.04) mg/dL Glucose 114 H (74-99) mg/dL Plasma Lactic Acid Percy 6.9 H* (0.7-2.0) mmol/L Total Bilirubin 2.2 H (0.2-1.3) mg/dL Urine Appearance (Clear) Urine Protein (Negative) Urine Glucose (UA) (Negative) Urine Ketones (Negative) Urine Blood (Negative) Ur Leukocyte Esterase (Negative) Urine RBC (0-5) /hpf Urine WBC (0-5) /hpf Urine WBC Clumps (None) /hpf Ur Squamous Epith Cells (0-4) /hpf Amorphous Sediment (None) /hpf Urine Mucus (None) /hpf 04/17/18 04/17/18 04/17/18 Range/Units 11:03 12:05 14:50 WBC (3.8-10.6) k/uL RBC (3.80-5.40) m/uL Hct (34.0-46.0) % Neutrophils # (Manual) (1.3-7.7) k/uL Lymphocytes # (Manual) (1.0-4.8) k/uL Metamyelocytes # (Man) (0) k/uL Myelocytes # (Manual) (0) k/uL APTT 38.4 H (22.0-30.0) sec Carbon Dioxide (22-30) mmol/L BUN (7-17) mg/dL Creatinine (0.52-1.04) mg/dL Glucose (74-99) mg/dL Plasma Lactic Acid Percy 3.3 H* (0.7-2.0) mmol/L Total Bilirubin (0.2-1.3) mg/dL Urine Appearance Turbid H (Clear) Urine Protein 1+ H (Negative) Urine Glucose (UA) Trace H (Negative) Urine Ketones Trace H (Negative) Urine Blood Trace H (Negative) Ur Leukocyte Esterase Large H (Negative) Urine RBC 18 H (0-5) /hpf Urine WBC 85 H (0-5) /hpf Urine WBC Clumps Occasional H (None) /hpf Ur Squamous Epith Cells 23 H (0-4) /hpf Amorphous Sediment Rare H (None) /hpf Urine Mucus Few H (None) /hpf Assessment and Plan Assessment: - Sepsis - Community aquired pneumonia causing sepsis - Afib with RVR currently in sinus rythm - Acute renal failure - Lactic acidosis - History of tobacco use - Plan - Will admit the patient to ICU - Continue antibiotics - On heparin, Rate is NSR now. - Continue iv fluids - DVT and GI ppx - Will order for labs in the AM - Expected lenght of stay is more than 2 minights - Patient is full code Time with Patient: Greater than 30
[2018-04-18 00:03] VITALS: BMI 30.9
[2018-04-18] MEDS: HEPARIN SODIUM,PORCINE 5,000 UNIT/ML 1 ML VIAL SQ SCH ×4 (01:30→23:19)
[2018-04-18] MEDS: ACETAMINOPHEN TAB 325 MG TAB PO PRN ×2 (04:04→13:40)
[2018-04-18] MEDS: SODIUM CHLORIDE 0.9% 1,000 ML IV SCH ×2 (04:06→13:38)
[2018-04-18] MEDS: IPRATROPIUM-ALBUTEROL 3 ML NEB INHALATION SCH ×4 (05:12→19:38)
[2018-04-18] MEDS: LEVOTHYROXINE 125 MCG TAB PO SCH (06:23)
[2018-04-18 06:25] LABS: Basophils % (A) 0 %; Eosinophils # (A) 0.1 k/uL (0-0.7); Eosinophils % (A) 1 %; HCT 36.2 % (34.0-46.0); Lymphocytes # (A) 0.9 k/uL (1.0-4.8); Lymphocytes % (A) 8 %; MCH 27.3 pg (25.0-35.0); MCHC 31.6 g/dL (31.0-37.0); MCV 86.5 fL (80.0-100.0); Mean Platelet Volume 8.7; Monocytes # (A) 0.2 k/uL (0-1.0); Monocytes % (A) 2 %; Neutrophils # (A) 10.3 k/uL (1.3-7.7); Neutrophils % (A) 88 %; Platelet Count 139 k/uL (150-450); RBC 4.19 m/uL (3.80-5.40); RDW 13.8 % (11.5-15.5); WBC 11.7 k/uL (3.8-10.6)
[2018-04-18 06:28] LABS: HGB 11.4 gm/dL (11.4-16.0)
[2018-04-18 06:48] LABS: Albumin 2.3 g/dL (3.5-5.0); Calcium 7.8 mg/dL (8.4-10.2); Potassium 3.8 mmol/L (3.5-5.1); Total Bilirubin 0.9 mg/dL (0.2-1.3); Total Protein 4.5 g/dL (6.3-8.2)
--- NOTE | 2018-04-18 07:20 | XR ---
EXAMINATION TYPE: XR chest 1V portable DATE OF EXAM: 04/18/2018 CLINICAL HISTORY: Difficulty breathing progress study. TECHNIQUE: Single AP portable upright view of the chest is obtained. COMPARISON: None. FINDINGS: The cardiomediastinal silhouette is within normal limits. Small bilateral pleural effusions are evident. There is right basilar and right midlung airspace dise ase. Fluid is seen layering along the right minor fissure. No pneumothorax. Osseous structures are wi thout acute pathology. Limited evaluation the upper abdomen is unremarkable. IMPRESSION: 1. Bilateral, right greater than left pleural effusions. 2. Right mid and lower lung airspace disease. Infectious etiology such as pneumonia should be conside red.
[2018-04-18] MEDS: PANTOPRAZOLE 40 MG TABLET PO SCH (08:20)
[2018-04-18] MEDS ORDERED: ENOXAPARIN 40 MG/0.4 ML SYRINGE SQ SCH (09:00)
--- NOTE | 2018-04-18 11:02 | P.PN ---
Subjective Very pleasant 71-year-old female admitted yesterday for shortness of breath and right upper quadrant and right flank pain. CT abdomen shows right lower lobe pneumonia. She also had episode of atrial fibrillation and RVR while in the ER. Her lactic acid was elevated yesterday. She was given IV fluid boluses, was started on heparin and Cardizem drip and antibiotics. She was admitted to ICU for further care. On 04/16/2018 Patient says that she seemed much better than yesterday. She still on nasal cannula Heparin Cardizem off right now She is in normal sinus rhythm She does not complain of any chest pain or racing heart He said that she still short of breath and is coughing but much better than yesterday Pain in right upper quadrant flank is also better than yesterday Objective - Vital Signs Vital signs: Vital Signs Temp 99 F 04/18/18 04:01 Pulse 68 04/18/18 08:00 Resp 16 04/18/18 08:00 BP 97/58 04/18/18 08:00 Pulse Ox 95 04/18/18 08:00 Intake & Output 04/17/18 04/18/18 04/18/18 18:59 06:59 18:59 Intake Total 2100 3810 550 Output Total 210 650 190 Balance 1890 3160 360 Weight 81.647 kg 85 kg Intake: IV 2500 450 Sodium Chloride 0.9% 1, 1500 450 000 ml @ 150 mls/hr IV . Q6H40M [facility] Rx#:[id number] Sodium Chloride 0.9% 1, 1000 000 ml @ 999 mls/hr IV . Q1H1M [facility]A Rx#:[id number] Intake, IV Titration 1550 150 Amount Sodium Chloride 0.9% 1, 450 150 000 ml @ 150 mls/hr IV . Q6H40M [facility] Rx#:[id number] Sodium Chloride 0.9% 1, 1000 000 ml @ 999 mls/hr IV . Q1H1M STA Rx#:[id number] cefTRIAXone 1 gm In 100 Sodium Chloride 0.9% 50 ml @ 100 mls/hr IVPB Q24H [facility] Rx#:[id number] Oral 550 1160 100 Output: Urine 210 650 190 Other: Voiding Method Indwelling Catheter Indwelling Catheter Indwelling Catheter - Exam On exam, alert and oriented x3. HEENT: Conjunctivae normal. eyes normal. NECK: No JVD. No thyroid enlargement. No LNs CARDIOVASCULAR: S1, S2 positive, regular rhythm RESPIRATION: Breath sounds diminished in the right side of the lung ABDOMEN: Soft, nontender . No guarding. no masses palpable. No ascites, No hepatosplenomegaly.Bowel sounds heard. LEGS: No edema. no swelling NERVOUS SYSTEM: Cranial N 2-12 grossly normal. Moves all 4 limbs. No focal deficits. No sensory deficit. No signs of cerebellar dysfucntion. Skin: no ulcer no rash Joints: No active swelling. No inflammation. Lymphatic system. No LN neck axilla or groin. - Labs CBC & Chem 7: 04/18/18 05:44 04/18/18 05:44 Labs: Abnormal Lab Results - Last 24 Hours (Table) 04/17/18 04/17/18 04/17/18 Range/Units 11:03 11:03 11:03 WBC 16.5 H (3.8-10.6) k/uL RBC 5.58 H (3.80-5.40) m/uL Hct 47.2 H (34.0-46.0) % Plt Count (150-450) k/uL Neutrophils # (1.3-7.7) k/uL Neutrophils # (Manual) 14.80 H (1.3-7.7) k/uL Lymphocytes # (1.0-4.8) k/uL Lymphocytes # (Manual) 0.66 L (1.0-4.8) k/uL Metamyelocytes # (Man) 0.66 H (0) k/uL Myelocytes # (Manual) 0.17 H (0) k/uL APTT (22.0-30.0) sec Sodium (137-145) mmol/L Chloride (98-107) mmol/L Carbon Dioxide 18 L (22-30) mmol/L BUN 45 H (7-17) mg/dL Creatinine 2.39 H (0.52-1.04) mg/dL Glucose 114 H (74-99) mg/dL Plasma Lactic Acid Percy 6.9 H* (0.7-2.0) mmol/L Calcium (8.4-10.2) mg/dL Total Bilirubin 2.2 H (0.2-1.3) mg/dL Total Protein (6.3-8.2) g/dL Albumin (3.5-5.0) g/dL Urine Appearance (Clear) Urine Protein (Negative) Urine Glucose (UA) (Negative) Urine Ketones (Negative) Urine Blood (Negative) Ur Leukocyte Esterase (Negative) Urine RBC (0-5) /hpf Urine WBC (0-5) /hpf Urine WBC Clumps (None) /hpf Ur Squamous Epith Cells (0-4) /hpf Amorphous Sediment (None) /hpf Urine Mucus (None) /hpf 04/17/18 04/17/18 04/17/18 Range/Units 11:03 12:05 14:50 WBC (3.8-10.6) k/uL RBC (3.80-5.40) m/uL Hct (34.0-46.0) % Plt Count (150-450) k/uL Neutrophils # (1.3-7.7) k/uL Neutrophils # (Manual) (1.3-7.7) k/uL Lymphocytes # (1.0-4.8) k/uL Lymphocytes # (Manual) (1.0-4.8) k/uL Metamyelocytes # (Man) (0) k/uL Myelocytes # (Manual) (0) k/uL APTT 38.4 H (22.0-30.0) sec Sodium (137-145) mmol/L Chloride (98-107) mmol/L Carbon Dioxide (22-30) mmol/L BUN (7-17) mg/dL Creatinine (0.52-1.04) mg/dL Glucose (74-99) mg/dL Plasma Lactic Acid Percy 3.3 H* (0.7-2.0) mmol/L Calcium (8.4-10.2) mg/dL Total Bilirubin (0.2-1.3) mg/dL Total Protein (6.3-8.2) g/dL Albumin (3.5-5.0) g/dL Urine Appearance Turbid H (Clear) Urine Protein 1+ H (Negative) Urine Glucose (UA) Trace H (Negative) Urine Ketones Trace H (Negative) Urine Blood Trace H (Negative) Ur Leukocyte Esterase Large H (Negative) Urine RBC 18 H (0-5) /hpf Urine WBC 85 H (0-5) /hpf Urine WBC Clumps Occasional H (None) /hpf Ur Squamous Epith Cells 23 H (0-4) /hpf Amorphous Sediment Rare H (None) /hpf Urine Mucus Few H (None) /hpf 04/18/18 04/18/18 Range/Units 05:44 05:44 WBC 11.7 H (3.8-10.6) k/uL RBC (3.80-5.40) m/uL Hct (34.0-46.0) % Plt Count 139 L (150-450) k/uL Neutrophils # 10.3 H (1.3-7.7) k/uL Neutrophils # (Manual) (1.3-7.7) k/uL Lymphocytes # 0.9 L (1.0-4.8) k/uL Lymphocytes # (Manual) (1.0-4.8) k/uL Metamyelocytes # (Man) (0) k/uL Myelocytes # (Manual) (0) k/uL APTT (22.0-30.0) sec Sodium 136 L (137-145) mmol/L Chloride 111 H (98-107) mmol/L Carbon Dioxide 17 L (22-30) mmol/L BUN 41 H (7-17) mg/dL Creatinine 1.47 H (0.52-1.04) mg/dL Glucose (74-99) mg/dL Plasma Lactic Acid Percy (0.7-2.0) mmol/L Calcium 7.8 L (8.4-10.2) mg/dL Total Bilirubin (0.2-1.3) mg/dL Total Protein 4.5 L (6.3-8.2) g/dL Albumin 2.3 L (3.5-5.0) g/dL Urine Appearance (Clear) Urine Protein (Negative) Urine Glucose (UA) (Negative) Urine Ketones (Negative) Urine Blood (Negative) Ur Leukocyte Esterase (Negative) Urine RBC (0-5) /hpf Urine WBC (0-5) /hpf Urine WBC Clumps (None) /hpf Ur Squamous Epith Cells (0-4) /hpf Amorphous Sediment (None) /hpf Urine Mucus (None) /hpf Microbiology - Last 24 Hours (Table) 04/17/18 12:05 Urine Culture - Preliminary Urine,Voided Assessment and Plan Assessment: - Sepsis - Community aquired pneumonia causing sepsis - Afib with RVR currently in sinus rythm - Acute renal failure - Lactic acidosis - History of tobacco use - Plan - Patient of the heparin Cardizem drip. Cardiology following the patient. We' ll probably an echocardiogram - She is currently in ICU. Pulmonology following the patient - Continue antivirals for now - Continue IV fluids - Continue breathing treatments as needed - We'll follow the patient Time with Patient: Greater than 30
--- NOTE | 2018-04-18 14:44 | P.PN ---
Subjective Progress Note Date: 04/18/18 This is a very pleasant 67-year-old female patient who follows with Dr. Duenas as her primary care physician. She has a history of mild intermittent chronic bronchial asthma, esophageal reflux disease, hypertension, hypothyroidism. She has a remote history of smoking. He had recently been complaining of flulike symptoms some nausea no significant vomiting. She also has having some right upper quadrant pain that was moving into her right flank area. She was had undergone a CAT scan of the abdomen and pelvis which revealed a posterior right lower lobe consolidation with air bronchograms suspicious for focal right basilar pneumonia. We count 16.5. Creatinine 2.39. Potassium 6.9. Urinalysis with elevated WBCs. He was quite fatigued and lethargic. In the emergency room she received received 3 L of IV fluid resuscitation. She has been initiated on ceftriaxone and azithromycin. She also had an episode of atrial fibrillation with rapid ventricular response was initiated on a heparin drip. She is currently in normal sinus rhythm. She is seen today in consultation in the intensive care unit. She is awake and alert in no acute distress. She is maintaining good O2 saturations in the 90s on 2 L/ m per nasal cannula. She's been afebrile. Lactic improved to 3.3. On today's evaluation of 04/18/2018, the patient is doing well. Less short of breath compared to yesterday. Still coughing and she has a congested cough. Chest x-ray showing a right lower lobe consolidation consistent with pneumonia. The patient is hemodynamically stable. No cardiac arrhythmias the patient has taken a normal sinus rhythm. She has an adequate urine output. Lactic acid is improved. The white cell count is also improving and is currently down to 11.7. Cultures of been all negative and the patient remains on a combination of Rocephin and Zithromax. No other complaints otherwise for now. Overall condition is gradually improving. The third degree of the chest that have subsided compared to yesterday. Objective - Vital Signs Vital signs: Vital Signs Temp 98.1 F 04/18/18 09:00 Pulse 75 04/18/18 13:00 Resp 25 H 04/18/18 13:00 BP 117/61 04/18/18 13:00 Pulse Ox 93 L 04/18/18 13:00 Intake & Output 04/17/18 04/18/1819 18:59 06:59 18:59 Intake Total 2100 3810 1250 Output Total 210 650 540 Balance 1890 3160 710 Weight 81.647 kg 85 kg Intake: IV 2500 750 Sodium Chloride 0.9% 1, 1500 750 000 ml @ 150 mls/hr IV . Q6H40M [facility] Rx#:[id number] Sodium Chloride 0.9% 1, 1000 000 ml @ 999 mls/hr IV . Q1H1M [facility] Rx#:[id number] Intake, IV Titration 1550 150 Amount Sodium Chloride 0.9% 1, 450 150 000 ml @ 150 mls/hr IV . Q6H40M [facility] Rx#:[id number] Sodium Chloride 0.9% 1, 1000 000 ml @ 999 mls/hr IV . Q1H1M [facility] Rx#:[id number] cefTRIAXone 1 gm In 100 Sodium Chloride 0.9% 50 ml @ 100 mls/hr IVPB Q24H [facility] Rx#:[id number] Oral 550 1160 500 Output: Urine 210 650 540 Other: Voiding Method Indwelling Catheter Indwelling Catheter Indwelling Catheter - Exam GENERAL EXAM: Alert, active, comfortable in no apparent distress. On nasal canula 2 L. HEAD: Normocephalic. EYES: Normal reaction of pupils, equal size. NOSE: Clear with pink turbinates. THROAT: No erythema or exudates. NECK: No masses, no JVD. CHEST: No chest wall deformity. LUNGS: Equal air entry with crackles in the right posterior base.. CVS: S1 and S2 normal with no audible murmur, regular rhythm. ABDOMEN: No hepatosplenomegaly, normal bowel sounds, no guarding or rigidity. SPINE: No scoliosis or deformity SKIN: No rashes CENTRAL NERVOUS SYSTEM: No focal deficits, tone is normal in all 4 extremities. EXTREMITIES: There is no peripheral edema. No clubbing, no cyanosis. Peripheral pulses are intact. - Labs CBC & Chem 7: 04/18/18 05:44 04/18/18 05:44 Labs: Abnormal Lab Results - Last 24 Hours (Table) 04/17/18 04/17/18 04/18/18 Range/Units 11:03 14:50 05:44 WBC 11.7 H (3.8-10.6) k/uL Plt Count 139 L (150-450) k/uL Neutrophils # 10.3 H (1.3-7.7) k/uL Lymphocytes # 0.9 L (1.0-4.8) k/uL APTT 38.4 H (22.0-30.0) sec Sodium (137-145) mmol/L Chloride (98-107) mmol/L Carbon Dioxide (22-30) mmol/L BUN (7-17) mg/dL Creatinine (0.52-1.04) mg/dL Plasma Lactic Acid Percy 3.3 H* (0.7-2.0) mmol/L Calcium (8.4-10.2) mg/dL Total Protein (6.3-8.2) g/dL Albumin (3.5-5.0) g/dL 04/18/18 Range/Units 05:44 WBC (3.8-10.6) k/uL Plt Count (150-450) k/uL Neutrophils # (1.3-7.7) k/uL Lymphocytes # (1.0-4.8) k/uL APTT (22.0-30.0) sec Sodium 136 L (137-145) mmol/L Chloride 111 H (98-107) mmol/L Carbon Dioxide 17 L (22-30) mmol/L BUN 41 H (7-17) mg/dL Creatinine 1.47 H (0.52-1.04) mg/dL Plasma Lactic Acid Percy (0.7-2.0) mmol/L Calcium 7.8 L (8.4-10.2) mg/dL Total Protein 4.5 L (6.3-8.2) g/dL Albumin 2.3 L (3.5-5.0) g/dL Microbiology - Last 24 Hours (Table) 04/17/18 12:05 Urine Culture - Preliminary Urine,Voided Assessment and Plan Plan: Impression: #1 Right-sided chest discomfort secondary to an acute exacerbation of community- acquired right lower lobe pneumonia. Currently on ceftriaxone and azithromycin. #2 Lactic acidosis secondary to above. Status post 4 L IV fluid resuscitation. Current lactic 3.3. #3 Acute renal failure suspect secondary to dehydration and hypotension current creatinine 2.39. #4 Leukocytosis secondary to above. #5 Suspected urinary tract infection, cultures pending. #6 Brief episode of atrial fibrillation with rapid ventricular response, currently in normal sinus rhythm. #7 Mild intermittent chronic bronchial asthma, currently inactive and stable. #8 Remote history of chronic tobacco dependence. #9 Hypothyroidism. #10 Obesity Plan Patient is improving. Keep same antibiotic coverage. White cell count is improved. Lactic acid level is improving. Renal function is also improving. The patient is recovering from the acute kidney injury. Keep the patient ICU for 24 hours. Awaiting the echocardiogram. Repeat chest x-ray in the morning. We'll continue to follow.
--- NOTE | 2018-04-18 15:20 | CONS ---
CONSULTATION Mrs. Amezcua is a 67-year-old female who presented to the emergency room with symptoms of progressive dyspnea and cough. Patient has a history of chronic bronchial asthma, history of hypertension, and has been seen by Dr. Connors recently. She has been complaining of right-sided discomfort with flu-like syndrome with some nausea. She was found to have evidence of posterior right lower lobe consolidation and pneumonia. She had an episode of paroxysmal atrial fibrillation that converted back to sinus mechanism. She is doing well at this point. She was told a long time ago that she may have had a heart attack, although not by Dr. Connors, and there does not appear to be clear documentation of that. She has no exertional chest pain. The discomfort she has on the right side is related to her breathing. She has occasional palpitations but no dizziness or syncope in the past. She has no peripheral edema, no clear PND or orthopnea. The patient has a prior history of smoking, but not recently. She has a history of hypertension. She is non-diabetic. MEDICATIONS: Include: 1. Lasix 20 mg daily. 2. Atenolol 25 mg daily. 3. Theophylline. 4. Protonix. REVIEW OF SYSTEMS: RESPIRATORY SYSTEM: She had cough, history of bronchial asthma, the recent evidence of infectious process. GI SYSTEM: She has some nausea but no vomiting. No recent GI bleeding. SYSTEM: No dysuria or hematuria. NERVOUS SYSTEM: No history of seizure. Questionable history of stroke, although not well documented. PHYSICAL EXAMINATION: She is a 67-year-old female, alert, oriented, in no apparent distress. Blood pressure is running between the high 90s and low 100s. in the 60s. HEAD: Normocephalic. Eyes: Sclerae anicteric. NECK: Good carotid upstroke. No bruit. LUNGS: Crackles on the right base. HEART: Regular rate, rhythm S1, S2. No S3 or gallop appreciated. ABDOMEN: Soft, nontender. Positive bowel sounds. No organomegaly. Obese. EXTREMITIES: No edema. IMAGING: Chest x-ray revealed consolidation on the right middle and lower lobes. CT scan of the abdomen revealed posterior right lower lobe consolidation. EKG showed atrial fibrillation with rapid ventricular response, rate of 157, with nonspecific ST-T wave changes. She is in sinus mechanism at this time. LAB DATA: White blood cell count of 16.5 on presentation, down to 11.7, hemoglobin of 11.4. Her plasma lactic acid was 6.9. She is down to 3.3. BUN and creatinine are 41 and 1.47; they were 45 and 2.39 on admission. Potassium 3.8. IMPRESSION: 1. Pneumonia with elevated lactic acid and right-sided discomfort related to infectious process. 2. Acute renal failure, probably worsened by the dehydration. 3. Paroxysmal atrial fibrillation. Remains in sinus mechanism. 4. History of hypertension, stable. 5. Prior history of smoking. RECOMMENDATIONS: We will continue IV fluid. The patient had an echocardiogram with Doppler. We will follow her renal function. At this time I will hold on anticoagulation unless we have further episode of arrhythmia. Patient has been managed by Dr. Omalley regarding her lung status. Depending on her progress, further recommendations will be made. Thank you for this consult. We will follow with you . MMODL / IJN: [id number] /
[2018-04-18] MEDS ORDERED: AZITHROMYCIN 500 MG in SODIUM CHLORIDE 0.9% 250 ML IVPB SCH (16:00)
--- NOTE | 2018-04-18 17:33 | ECHOF ---
Referral Reason:LV function MEASUREMENTS -------- HEIGHT: 162.6 cm WEIGHT: 84.8 kg BP: 97/58 RVIDd: 2.8 cm (< 3.3) IVSd: 1.4 cm (0.6 - 1.1) LVIDd: 4.4 cm (3.9 - 5.3) LVPWd: 1.3 cm (0.6 - 1.1) IVSs: 1.6 cm LVIDs: 3.7 cm LVPWs: 1.5 cm LA Diam: 3.1 cm (2.7 - 3.8) LAESV Index (A-L): 24.70 ml/m Ao Diam: 3.3 cm (2.0 - 3.7) AV Cusp: 2.0 cm (1.5 - 2.6) MV EXCURSION: 15.618 mm (> 18.000) MV EF SLOPE: 78 mm/s (70 - 150) EPSS: 0.4 cm MV E Jamie: 0.84 m/s MV DecT: 145 ms MV A Jamie: 0.96 m/s MV E/A Ratio: 0.88 AR PHT: 500 ms RAP: 5.00 mmHg RVSP: 37.62 mmHg FINDINGS -------- Sinus rhythm. This was a technically adequate study. The left ventricular size is normal. There is moderate concentric left ventricular hypertrophy. O verall left ventricular systolic function is low-normal with, an EF between 50 - 55 %. The right ventricle is normal in size. Normal LA size by volume 22+/-6 ml/m2. The right atrium is normal in size. There is mild aortic valve sclerosis. There is mild aortic regurgitation. The mitral valve leaflets are mildly thickened. Moderate mitral regurgitation is present. Mild tricuspid regurgitation present. There is mild pulmonary hypertension. The right ventricular systolic pressure, as measured by Doppler, is 37.62mmHg. Trace/mild (physiologic) pulmonic regurgitation. The aortic root size is normal. Normal inferior vena cava with normal inspiratory collapse consistent with estimated right atrial pre ssure of 5 mmHg. There is no pericardial effusion. CONCLUSIONS -------- 1. Sinus rhythm. 2. This was a technically adequate study. 3. The left ventricular size is normal. 4. There is moderate concentric left ventricular hypertrophy. 5. Overall left ventricular systolic function is low-normal with, an EF between 50 - 55 %. 6. The right ventricle is normal in size. 7. Normal LA size by volume 22+/-6 ml/m2. 8. There is mild aortic valve sclerosis. 9. There is mild aortic regurgitation. 10. The mitral valve leaflets are mildly thickened. 11. Moderate mitral regurgitation is present. 12. Mild tricuspid regurgitation present. 13. There is mild pulmonary hypertension. 14. Trace/mild (physiologic) pulmonic regurgitation. 15. The aortic root size is normal. 16. Normal inferior vena cava with normal inspiratory collapse consistent with estimated right atrial pressure of 5 mmHg. 17. There is no pericardial effusion. [employer]: Christine Hollis RDCS
[2018-04-18] MEDS: VENLAFAXINE HCL ER 75 MG CAP PO SCH (21:46)
[2018-04-18] MEDS: ATENOLOL 25 MG TAB PO SCH (21:46)
[2018-04-19] MEDS: SODIUM CHLORIDE 0.9% 500 ML 500 ML IV SCH ×2 (00:06→00:07)
[2018-04-19] MEDS: PANTOPRAZOLE 40 MG TABLET PO SCH (06:21)
[2018-04-19] MEDS: LEVOTHYROXINE 125 MCG TAB PO SCH (06:22)
[2018-04-19 06:52] LABS: Basophils % (A) 0 %; Eosinophils # (A) 0.2 k/uL (0-0.7); Eosinophils % (A) 1 %; HCT 34.2 % (34.0-46.0); HGB 11.3 gm/dL (11.4-16.0); Lymphocytes # (A) 0.7 k/uL (1.0-4.8); Lymphocytes % (A) 5 %; MCH 28.5 pg (25.0-35.0); MCHC 32.9 g/dL (31.0-37.0); MCV 86.6 fL (80.0-100.0); Monocytes # (A) 0.6 k/uL (0-1.0); Monocytes % (A) 5 %; Neutrophils # (A) 12.1 k/uL (1.3-7.7); Neutrophils % (A) 87 %; Platelet Count 143 k/uL (150-450); RBC 3.95 m/uL (3.80-5.40); RDW 13.8 % (11.5-15.5); WBC 13.9 k/uL (3.8-10.6)
[2018-04-19 07:07] LABS: Calcium 8.7 mg/dL (8.4-10.2); Potassium 3.6 mmol/L (3.5-5.1)
[2018-04-19] MEDS: IPRATROPIUM-ALBUTEROL 3 ML NEB INHALATION SCH ×4 (09:19→21:18)
[2018-04-19] MEDS: HEPARIN SODIUM,PORCINE 5,000 UNIT/ML 1 ML VIAL SQ SCH ×3 (09:57→23:01)
--- NOTE | 2018-04-19 12:38 | P.PN ---
Subjective Very pleasant 71-year-old female admitted yesterday for shortness of breath and right upper quadrant and right flank pain. CT abdomen shows right lower lobe pneumonia. She also had episode of atrial fibrillation and RVR while in the ER. Her lactic acid was elevated yesterday. She was given IV fluid boluses, was started on heparin and Cardizem drip and antibiotics. She was admitted to ICU for further care. On 04/18/2018 Patient says that she seemed much better than yesterday. She still on nasal cannula Heparin Cardizem off right now She is in normal sinus rhythm She does not complain of any chest pain or racing heart He said that she still short of breath and is coughing but much better than yesterday Pain in right upper quadrant flank is also better than yesterday On 04/19/2018 Patient says that she is doing better Patient is in sinus rhythm for now her shortness of breath is better. Pain in the right upper quadrant is better as well Objective - Vital Signs Vital signs: Vital Signs Temp 98.3 F 04/19/18 12:00 Pulse 74 04/19/18 12:00 Resp 18 04/19/18 12:00 BP 147/83 04/19/18 12:00 Pulse Ox 96 04/19/18 12:00 Intake & Output 04/18/18 04/19/18 04/19/18 18:59 06:59 18:59 Intake Total 1700 200 360 Output Total 1015 1430 Balance 685 -1230 360 Weight 87.5 kg Intake: IV 750 Sodium Chloride 0.9% 1, 750 000 ml @ 150 mls/hr IV . Q6H40M [facility] Rx#:[id number] Oral 950 200 360 Output: Urine 1015 1430 Other: Voiding Method Indwelling Catheter Indwelling Catheter Bedside Commode - Exam On exam, alert and oriented x3. HEENT: Conjunctivae normal. eyes normal. NECK: No JVD. No thyroid enlargement. No LNs CARDIOVASCULAR: S1, S2 positive, regular rhythm RESPIRATION: Breath sounds diminished in the right side of the lung ABDOMEN: Soft, nontender . No guarding. no masses palpable. No ascites, No hepatosplenomegaly.Bowel sounds heard. LEGS: No edema. no swelling NERVOUS SYSTEM: Cranial N 2-12 grossly normal. Moves all 4 limbs. No focal deficits. No sensory deficit. No signs of cerebellar dysfucntion. Skin: no ulcer no rash Joints: No active swelling. No inflammation. Lymphatic system. No LN neck axilla or groin. - Labs CBC & Chem 7: 04/19/18 05:48 04/19/18 05:48 Labs: Abnormal Lab Results - Last 24 Hours (Table) 04/19/18 04/19/18 Range/Units 05:48 05:48 WBC 13.9 H (3.8-10.6) k/uL Hgb 11.3 L (11.4-16.0) gm/dL Plt Count 143 L (150-450) k/uL Neutrophils # 12.1 H (1.3-7.7) k/uL Lymphocytes # 0.7 L (1.0-4.8) k/uL Chloride 115 H (98-107) mmol/L Carbon Dioxide 19 L (22-30) mmol/L BUN 28 H (7-17) mg/dL Creatinine 1.07 H (0.52-1.04) mg/dL Microbiology - Last 24 Hours (Table) 04/17/18 12:05 Urine Culture - Final Urine,Voided 04/17/18 11:00 Blood Culture - Preliminary Blood No Growth after 24 hours 04/17/18 23:00 Gram Stain - Preliminary Sputum Assessment and Plan Assessment: - Sepsis - Community aquired pneumonia causing sepsis - Afib with RVR currently in sinus rythm - Acute renal failure - Lactic acidosis - History of tobacco use - Plan - Patient transferred from ICU yesterday - Continue antibiotics - Cardiology following the patient for A. fib. She is in normal sinus rhythm right now. Not evaluation as of now - We will continue current management - We'll continue to monitor the patient
--- NOTE | 2018-04-19 13:58 | P.PN ---
Subjective Progress Note Date: 04/19/18 This is a pleasant 67-year-old female who presented to the emergency room with symptoms of progressive dyspnea and cough. She has a history of chronic bronchial asthma, hypertension and was recently seen by Dr. Salazar. She's been cleaning of right-sided discomfort and flulike symptoms with some nausea. She was found to have evidence of posterior right lower lobe consolidation and pneumonia. She had an episode of paroxysmal atrial fibrillation that converted back to sinus mechanism. Overall she is doing fairly well. She denies further complaints of chest discomfort and feels that her breathing is better overall. Her cardiogram with Doppler done yesterday showed moderate concentric LVH, low- normal LV systolic function with ejection fraction between 50-55%, mild aortic valve sclerosis with mild aortic regurgitation, moderate mitral regurgitation, mild tricuspid regurgitation and mild pulmonary hypertension. Appetite values today show sodium of 142, BUN 28 and creatinine 1.07 which are improved since yesterday. She remains on atenolol 25 mg by mouth daily at bedtime. Objective - Vital Signs Vital signs: Vital Signs Temp 98.3 F 04/19/18 12:00 Pulse 82 04/19/18 13:22 Resp 18 04/19/18 13:14 BP 147/83 04/19/18 12:00 Pulse Ox 96 04/19/18 12:00 Intake & Output 04/18/18 04/19/18 04/19/18 18:59 06:59 18:59 Intake Total 1700 200 360 Output Total 1015 1430 Balance 685 -1230 360 Weight 87.5 kg Intake: IV 750 Sodium Chloride 0.9% 1, 750 000 ml @ 150 mls/hr IV . Q6H40M [facility] Rx#:[id number] Oral 950 200 360 Output: Urine 1015 1430 Other: Voiding Method Indwelling Catheter Indwelling Catheter Bedside Commode - Exam PHYSICAL EXAMINATION: HEENT: Head is atraumatic, normocephalic. Pupils equal, round. Neck is supple. There is no elevated jugular venous pressure. HEART EXAMINATION: Heart sounds regular, S1 and S2 with a systolic murmur. CHEST EXAMINATION: Lungs reveal crackles to the right base. No chest wall tenderness is noted on palpation or with deep breathing. ABDOMEN: Soft, nontender. Bowel sounds are heard. No organomegaly noted. EXTREMITIES: 2+ peripheral pulses with no evidence of peripheral edema and no calf tenderness noted. NEUROLOGIC patient is awake, alert and oriented x3. . - Labs CBC & Chem 7: 04/19/18 05:48 04/19/18 05:48 Labs: Abnormal Lab Results - Last 24 Hours (Table) 04/19/18 04/19/18 Range/Units 05:48 05:48 WBC 13.9 H (3.8-10.6) k/uL Hgb 11.3 L (11.4-16.0) gm/dL Plt Count 143 L (150-450) k/uL Neutrophils # 12.1 H (1.3-7.7) k/uL Lymphocytes # 0.7 L (1.0-4.8) k/uL Chloride 115 H (98-107) mmol/L Carbon Dioxide 19 L (22-30) mmol/L BUN 28 H (7-17) mg/dL Creatinine 1.07 H (0.52-1.04) mg/dL Microbiology - Last 24 Hours (Table) 04/17/18 12:05 Urine Culture - Final Urine,Voided 04/17/18 11:00 Blood Culture - Preliminary Blood No Growth after 24 hours 04/17/18 23:00 Gram Stain - Preliminary Sputum Assessment and Plan Assessment: 1 pneumonia with elevated lactic acid and right sided discomfort related to infectious process #2 acute renal failure, likely worsened by dehydration #3 paroxysmal atrial fibrillation, remains in sinus mechanism #4 hypertension #5 prior history of smoking Plan: From Cardiology's perspective, medications were reviewed and will continue the same at this time. We will continue to follow the patient during this admission and provide further recommendations accordingly. NEUROLOGY TECH note has been reviewed, I agree with a documented findings and plan of care. Patient was seen and examined.
--- NOTE | 2018-04-19 14:39 | XR ---
EXAMINATION TYPE: XR chest 1V DATE OF EXAM: 04/19/2018 COMPARISON: 04/18/2018 INDICATION: Pneumonia TECHNIQUE: Single frontal view of the chest is obtained. FINDINGS: The heart size is normal. The pulmonary vasculature is normal. There is a large infiltrate through the right perihilar region extending to the periphery. This is wo rsening and can be compatible with pneumonia in the proper clinical setting. Some blunting left costo phrenic angle may be present. Atelectasis and pneumonia should be considered. IMPRESSION: 1. Worsening right perihilar extending to the periphery consolidation can be compatible with pneumoni a. Continued follow-up is recommended. 2. Worsening atelectasis left costophrenic angle.
--- NOTE | 2018-04-19 16:41 | P.PN ---
Subjective Progress Note Date: 04/19/18 This is a very pleasant 67-year-old female patient who follows with Dr. Duenas as her primary care physician. She has a history of mild intermittent chronic bronchial asthma, esophageal reflux disease, hypertension, hypothyroidism. She has a remote history of smoking. He had recently been complaining of flulike symptoms some nausea no significant vomiting. She also has having some right upper quadrant pain that was moving into her right flank area. She was had undergone a CAT scan of the abdomen and pelvis which revealed a posterior right lower lobe consolidation with air bronchograms suspicious for focal right basilar pneumonia. We count 16.5. Creatinine 2.39. Potassium 6.9. Urinalysis with elevated WBCs. He was quite fatigued and lethargic. In the emergency room she received received 3 L of IV fluid resuscitation. She has been initiated on ceftriaxone and azithromycin. She also had an episode of atrial fibrillation with rapid ventricular response was initiated on a heparin drip. She is currently in normal sinus rhythm. She is seen today in consultation in the intensive care unit. She is awake and alert in no acute distress. She is maintaining good O2 saturations in the 90s on 2 L/ m per nasal cannula. She's been afebrile. Lactic improved to 3.3. On today's evaluation of 04/18/2018, the patient is doing well. Less short of breath compared to yesterday. Still coughing and she has a congested cough. Chest x-ray showing a right lower lobe consolidation consistent with pneumonia. The patient is hemodynamically stable. No cardiac arrhythmias the patient has taken a normal sinus rhythm. She has an adequate urine output. Lactic acid is improved. The white cell count is also improving and is currently down to 11.7. Cultures of been all negative and the patient remains on a combination of Rocephin and Zithromax. No other complaints otherwise for now. Overall condition is gradually improving. The third degree of the chest that have subsided compared to yesterday. On 04/19/2018 I'm seeing this patient for a follow-up. Clinically improved. She got moved out of the intensive care unit yesterday which was been for a right lung pneumonia. Her had a white cell count is improved. Her leukocytosis improved. The lactic acidosis is recovered. The patient's renal function is improved. Chest x-ray however showing worsening of the right perihilar pneumonia and the patient has developed peripheral consolidation and worsening atelectatic changes in the left lung base. Despite the radiographic worsening, the patient is to place of oxygen by nasal cannula. Altered mentation. She is coughing and she is unable to bring up much sputum. All of the cultures of been negative. Legionella urine antigen was sent and results are still pending for now. Objective - Vital Signs Vital signs: Vital Signs Temp 98.3 F 04/19/18 12:00 Pulse 82 04/19/18 13:22 Resp 18 04/19/18 13:14 BP 147/83 04/19/18 12:00 Pulse Ox 96 04/19/18 12:00 Intake & Output 04/18/18 04/19/18 04/19/18 18:59 06:59 18:59 Intake Total 1700 200 360 Output Total 1015 1430 Balance 685 -1230 360 Weight 87.5 kg Intake: IV 750 Sodium Chloride 0.9% 1, 750 000 ml @ 150 mls/hr IV . Q6H40M [facility] Rx#:[id number] Oral 950 200 360 Output: Urine 1015 1430 Other: Voiding Method Indwelling Catheter Indwelling Catheter Bedside Commode - Exam GENERAL EXAM: Alert, active, comfortable in no apparent distress. On nasal canula 2 L. HEAD: Normocephalic. EYES: Normal reaction of pupils, equal size. NOSE: Clear with pink turbinates. THROAT: No erythema or exudates. NECK: No masses, no JVD. CHEST: No chest wall deformity. LUNGS: Equal air entry with crackles in the right posterior base.. CVS: S1 and S2 normal with no audible murmur, regular rhythm. ABDOMEN: No hepatosplenomegaly, normal bowel sounds, no guarding or rigidity. SPINE: No scoliosis or deformity SKIN: No rashes CENTRAL NERVOUS SYSTEM: No focal deficits, tone is normal in all 4 extremities. EXTREMITIES: There is no peripheral edema. No clubbing, no cyanosis. Peripheral pulses are intact. - Labs CBC & Chem 7: 04/19/18 05:48 04/19/18 05:48 Labs: Abnormal Lab Results - Last 24 Hours (Table) 04/19/18 04/19/18 Range/Units 05:48 05:48 WBC 13.9 H (3.8-10.6) k/uL Hgb 11.3 L (11.4-16.0) gm/dL Plt Count 143 L (150-450) k/uL Neutrophils # 12.1 H (1.3-7.7) k/uL Lymphocytes # 0.7 L (1.0-4.8) k/uL Chloride 115 H (98-107) mmol/L Carbon Dioxide 19 L (22-30) mmol/L BUN 28 H (7-17) mg/dL Creatinine 1.07 H (0.52-1.04) mg/dL Microbiology - Last 24 Hours (Table) 04/17/18 11:00 Blood Culture - Preliminary Blood No Growth after 48 hours 04/17/18 12:05 Urine Culture - Final Urine,Voided 04/17/18 23:00 Gram Stain - Preliminary Sputum Assessment and Plan Plan: Impression: #1 Right-sided chest discomfort secondary to an acute exacerbation of community- acquired right lower lobe pneumonia. Currently on ceftriaxone and azithromycin. #2 Lactic acidosis secondary to above. Status post 4 L IV fluid resuscitation. Current lactic 3.3. #3 Acute renal failure suspect secondary to dehydration and hypotension current creatinine 2.39. #4 Leukocytosis secondary to above. #5 Suspected urinary tract infection, cultures pending. #6 Brief episode of atrial fibrillation with rapid ventricular response, currently in normal sinus rhythm. #7 Mild intermittent chronic bronchial asthma, currently inactive and stable. #8 Remote history of chronic tobacco dependence. #9 Hypothyroidism. #10 Obesity Plan Patient is improving. Despite some worsening in the right upper lobe consolidation, clinically the patient is doing better. The patient was resuscitated. The patient is hemodynamically stable. Oxygenation is improved. Renal function is improved. Leukocytosis improved. Cultures still pending. Awaiting regional urine antigen. Continue Rocephin and Zithromax. Obtain a follow-up chest x-ray in the morning. We'll continue to follow.
[2018-04-19] MEDS: AZITHROMYCIN 500 MG TAB PO SCH (18:12)
[2018-04-19] MEDS: ATENOLOL 25 MG TAB PO SCH (19:51)
[2018-04-19] MEDS: VENLAFAXINE HCL ER 75 MG CAP PO SCH (19:51)
[2018-04-20] MEDS: LEVOTHYROXINE 125 MCG TAB PO SCH (06:34)
[2018-04-20] MEDS: PANTOPRAZOLE 40 MG TABLET PO SCH (06:34)
[2018-04-20 06:38] LABS: Basophils % (A) 0 %; Eosinophils # (A) 0.1 k/uL (0-0.7); Eosinophils % (A) 1 %; HCT 34.4 % (34.0-46.0); HGB 11.4 gm/dL (11.4-16.0); Lymphocytes % (A) 8 %; MCH 28.4 pg (25.0-35.0); MCHC 33.1 g/dL (31.0-37.0); MCV 85.7 fL (80.0-100.0); Mean Platelet Volume 8.4; Monocytes # (A) 1.5 k/uL (0-1.0); Monocytes % (A) 12 %; Neutrophils # (A) 9.2 k/uL (1.3-7.7); Neutrophils % (A) 76 %; Platelet Count 162 k/uL (150-450); RBC 4.02 m/uL (3.80-5.40); RDW 13.9 % (11.5-15.5); WBC 12.1 k/uL (3.8-10.6)
[2018-04-20 06:55] LABS: Calcium 8.8 mg/dL (8.4-10.2)
--- NOTE | 2018-04-20 07:46 | XR ---
EXAMINATION TYPE: XR chest 2V DATE OF EXAM: 04/20/2018 COMPARISON: 04/19/2018 INDICATION: Follow-up pneumonia TECHNIQUE: Frontal and lateral views of the chest are obtained. FINDINGS: The heart size is normal. The pulmonary vasculature is normal. Streak opacity in the right upper lobe is again evident. There is some elevation of the minor diaphra gm. Some underlying atelectasis is likely associated. Small left pleural effusion is present.. IMPRESSION: 1. Some improvement of a right upper lobe infiltrate. Portion of this can be attributed to atelectasi s. Pneumonia remains within the differential. 2. Small left pleural effusion, stable
[2018-04-20] MEDS: IPRATROPIUM-ALBUTEROL 3 ML NEB INHALATION SCH ×4 (08:41→21:11)
[2018-04-20] MEDS: HEPARIN SODIUM,PORCINE 5,000 UNIT/ML 1 ML VIAL SQ SCH ×2 (08:58→15:15)
--- NOTE | 2018-04-20 09:07 | P.PN ---
Subjective This is a pleasant 67 years old female with past medical history of asthma, gastroesophageal reflux disease, hypertension, sleep apnea on CPAP/BiPAP. She presents with signs symptoms of right lower lobe pneumonia. Patient still feels dyspneic although she smoked a little bit improved. She still having coughing with some phlegm, unknown which color. However patient states that her chest pain has gone. No fever and vitals stable. She is saturating 93% on 2 L oxygen via NC. Patient has not been on oxygen at home. WBC is coming down to 12.1 K. Rest of the CBC and BMP was unremarkable. Her Lasix and atenolol are on hold in her blood pressure is okay now. She is currently on ceftriaxone and Zithromax. Objective - Vital Signs Vital signs: Vital Signs Temp 98.7 F 04/19/18 20:00 Pulse 86 04/20/18 08:52 Resp 18 04/20/18 04:00 BP 149/74 04/20/18 04:00 Pulse Ox 93 L 04/20/18 04:00 Intake & Output 04/19/18 04/20/18 04/20/18 18:59 06:59 18:59 Intake Total 960 Balance 960 Weight 88.4 kg Intake: Oral 960 Other: Voiding Method Bedside Commode Toilet # Voids 3 1 - Exam GENERAL: The patient is alert and oriented x3, not in any acute distress. Well developed, well nourished. HEENT: Pupils are round and equally reacting to light. EOMI. No scleral icterus. No conjunctival pallor. Normocephalic, atraumatic. No pharyngeal erythema. No thyromegaly. CARDIOVASCULAR: S1 and S2 present. No murmurs, rubs, or gallops. -PULMONARY: Chest is clear to auscultation, no wheezing or crackles. Right lower decreased breath sounds some 50 ABDOMEN: Soft, nontender, nondistended, normoactive bowel sounds. No palpable organomegaly. MUSCULOSKELETAL: No joint swelling or deformity. EXTREMITIES: No cyanosis, clubbing, or pedal edema. NEUROLOGICAL: Gross neurological examination did not reveal any focal deficits. SKIN: No rashes. - Labs CBC & Chem 7: 04/20/18 05:42 04/20/18 05:42 Labs: Abnormal Lab Results - Last 24 Hours (Table) 04/20/18 04/20/18 Range/Units 05:42 05:42 WBC 12.1 H (3.8-10.6) k/uL Neutrophils # 9.2 H (1.3-7.7) k/uL Monocytes # 1.5 H (0-1.0) k/uL Chloride 111 H (98-107) mmol/L BUN 18 H (7-17) mg/dL Microbiology - Last 24 Hours (Table) 04/17/18 23:00 Gram Stain - Final Sputum Sputum Culture - Final 04/17/18 11:00 Blood Culture - Preliminary Blood No Growth after 48 hours 04/17/18 12:05 Urine Culture - Final Urine,Voided Assessment and Plan Assessment: Committee acquired right lower lobe pneumonia Acute hypoxic respiratory failure secondary to above History of asthma History of GERD Essential hypertension History of sleep apnea Plan: This is a pleasant 67 years old female who presents because of pneumonia. Continue with antibiotics. Pulmonary team are following the patient. Patient also has been evaluated by step finisher team.Labs and medication were reviewed.. Continue same treatment. Continue with symptomatic treatment. Resume home medication. Monitor lytes and vitals. DVT and GI prophylaxis. Further recommendations of the clinical course of the patient DVT prophylaxis: Subcutaneous heparin GI Prophylaxis: Protonix Prognosis is guarded
--- NOTE | 2018-04-20 14:36 | P.PN ---
Subjective Progress Note Date: 04/20/18 Principal diagnosis: Acute community acquired right lower lobe pneumonia This is a very pleasant 67-year-old female patient who follows with Dr. Duenas as her primary care physician. She has a history of mild intermittent chronic bronchial asthma, esophageal reflux disease, hypertension, hypothyroidism. She has a remote history of smoking. He had recently been complaining of flulike symptoms some nausea no significant vomiting. She also has having some right upper quadrant pain that was moving into her right flank area. She was had undergone a CAT scan of the abdomen and pelvis which revealed a posterior right lower lobe consolidation with air bronchograms suspicious for focal right basilar pneumonia. We count 16.5. Creatinine 2.39. Potassium 6.9. Urinalysis with elevated WBCs. He was quite fatigued and lethargic. In the emergency room she received received 3 L of IV fluid resuscitation. She has been initiated on ceftriaxone and azithromycin. She also had an episode of atrial fibrillation with rapid ventricular response was initiated on a heparin drip. She is currently in normal sinus rhythm. She is seen today in consultation in the intensive care unit. She is awake and alert in no acute distress. She is maintaining good O2 saturations in the 90s on 2 L/ m per nasal cannula. She's been afebrile. Lactic improved to 3.3. On today's evaluation of 04/18/2018, the patient is doing well. Less short of breath compared to yesterday. Still coughing and she has a congested cough. Chest x-ray showing a right lower lobe consolidation consistent with pneumonia. The patient is hemodynamically stable. No cardiac arrhythmias the patient has taken a normal sinus rhythm. She has an adequate urine output. Lactic acid is improved. The white cell count is also improving and is currently down to 11.7. Cultures of been all negative and the patient remains on a combination of Rocephin and Zithromax. No other complaints otherwise for now. Overall condition is gradually improving. The third degree of the chest that have subsided compared to yesterday. On 04/19/2018 I'm seeing this patient for a follow-up. Clinically improved. She got moved out of the intensive care unit yesterday which was been for a right lung pneumonia. Her had a white cell count is improved. Her leukocytosis improved. The lactic acidosis is recovered. The patient's renal function is improved. Chest x-ray however showing worsening of the right perihilar pneumonia and the patient has developed peripheral consolidation and worsening atelectatic changes in the left lung base. Despite the radiographic worsening, the patient is to place of oxygen by nasal cannula. Altered mentation. She is coughing and she is unable to bring up much sputum. All of the cultures of been negative. Legionella urine antigen was sent and results are still pending for now. On 04/20/2018 patient seen in follow-up on selective care unit. She reports her breathing is improving, lung sounds are positive for diffuse crackles. Patient is on 2 L per nasal cannula pulse ox is 94%, afebrile. Blood, urine and sputum cultures are negative. No fever or chills. Repeat chest x-ray showed improvement of the right upper lobe infiltrate, and stable small left pleural effusion. Patient has been ambulating in the room, she still reports some exertional dyspnea, only does not wear oxygen at home. We will wean FiO2. Clinically she is improving. Today's labs were notable, WBC is 12.1, hemoglobin is 11.4, serum sodium is 141, potassium is 4.0, chloride is 111, B1 is 18 and creatinine 0.87 Objective - Vital Signs Vital signs: Vital Signs Temp 99.8 F H 04/20/18 12:22 Pulse 84 04/20/18 13:52 Resp 16 04/20/18 12:22 BP 165/78 04/20/18 12:22 Pulse Ox 94 L 04/20/18 12:22 Intake & Output 04/19/18 04/20/18 04/20/18 18:59 06:59 18:59 Intake Total 960 240 Balance 960 240 Weight 88.4 kg Intake: Oral 960 240 Other: Voiding Method Bedside Commode Toilet # Voids 3 1 - Exam GENERAL EXAM: Alert, pleasant, 67-year-old white female on 2 L per nasal cannula comfortable in no apparent distress. HEAD: Normocephalic/atraumatic. EYES: Normal reaction of pupils, equal size. Conjunctiva pink, sclera white. NOSE: Clear with pink turbinates. THROAT: No erythema or exudates. NECK: No masses, no JVD, no thyroid enlargement, no adenopathy. CHEST: No chest wall deformity. Symmetrical expansion. LUNGS: Equal air entry with diffuse crackles, worse at the bases CVS: Regular rate and rhythm, normal S1 and S2, no gallops, no murmurs, no rubs ABDOMEN: Soft, nontender. No hepatosplenomegaly, normal bowel sounds, no guarding or rigidity. EXTREMITIES: No clubbing, no edema, no cyanosis, 2+ pulses and upper and lower extremities. MUSCULOSKELETAL: Muscle strength and tone normal. SPINE: No scoliosis or deformity SKIN: No rashes CENTRAL NERVOUS SYSTEM: Alert and oriented -3. No focal deficits, tone is normal in all 4 extremities. PSYCHIATRIC: Alert and oriented -3. Appropriate affect. Intact judgment and insight. - Labs CBC & Chem 7: 04/20/18 05:42 04/20/18 05:42 Labs: Abnormal Lab Results - Last 24 Hours (Table) 04/20/18 04/20/18 Range/Units 05:42 05:42 WBC 12.1 H (3.8-10.6) k/uL Neutrophils # 9.2 H (1.3-7.7) k/uL Monocytes # 1.5 H (0-1.0) k/uL Chloride 111 H (98-107) mmol/L BUN 18 H (7-17) mg/dL Microbiology - Last 24 Hours (Table) 04/17/18 23:00 Gram Stain - Final Sputum Sputum Culture - Final 04/17/18 11:00 Blood Culture - Preliminary Blood No Growth after 48 hours Assessment and Plan Plan: Assessment: #1 Right-sided chest discomfort secondary to an acute exacerbation of community- acquired right lower lobe pneumonia. Currently on ceftriaxone and azithromycin. #2 Lactic acidosis secondary to above. Status post 4 L IV fluid resuscitation. Current lactic 3.3. #3 Acute renal failure suspect secondary to dehydration and hypotension current creatinine 2.39. #4 Leukocytosis secondary to above. #5 Suspected urinary tract infection, cultures pending. #6 Brief episode of atrial fibrillation with rapid ventricular response, currently in normal sinus rhythm. #7 Mild intermittent chronic bronchial asthma, currently inactive and stable. #8 Remote history of chronic tobacco dependence. #9 Hypothyroidism. #10 Obesity Plan: Increase activity as tolerated, wean FiO2, encourage deep breathing and coughing. Continue current antibiotic coverage, no fever or chills, patient is improving clinically. Today's chest x-ray shows improvement in the appearance of the right upper lobe infiltrate, and a stable left pleural effusion. GI and DVT prophylaxis. Anticipate further improvement and possible discharge in next 24 hours if she continues to improve. We'll continue to follow. I performed a history & physical examination of the patient and discussed their management with my nurse practitioner, Marilynn Saleem. I reviewed the nurse practitioner's note and agree with the documented findings and plan of care. Lung sounds are positive for diffuse crackles. The findings and the impression was discussed with the patient. I attest to the documentation by the nurse practitioner. Time with Patient: Less than 30
--- NOTE | 2018-04-20 14:41 | P.PN ---
Subjective Progress Note Date: 04/20/18 This is a pleasant 67-year-old female who presented to the emergency room with symptoms of progressive dyspnea and cough. She has a history of chronic bronchial asthma, hypertension and was recently seen by Dr. Connors. She's been complaining of right-sided discomfort and flulike symptoms with some nausea. She was found to have evidence of posterior right lower lobe consolidation and pneumonia. She had an episode of paroxysmal atrial fibrillation that converted back to sinus mechanism. Overall she is doing fairly well. She denies further complaints of chest discomfort and feels that her breathing is better overall. Echocardiogram with Doppler showed moderate concentric LVH, low-normal LV systolic function with ejection fraction between 50-55%, mild aortic valve sclerosis with mild aortic regurgitation, moderate mitral regurgitation, mild tricuspid regurgitation and mild pulmonary hypertension. She continues to be in a normal sinus rhythm today. We will continue to follow her now on an as- needed basis only, please to hesitate to call with any questions. Objective - Vital Signs Vital signs: Vital Signs Temp 99.8 F H 04/20/18 12:22 Pulse 84 04/20/18 13:52 Resp 16 04/20/18 12:22 BP 165/78 04/20/18 12:22 Pulse Ox 94 L 04/20/18 12:22 Intake & Output 04/19/18 04/20/18 04/20/18 18:59 06:59 18:59 Intake Total 960 240 Balance 960 240 Weight 88.4 kg Intake: Oral 960 240 Other: Voiding Method Bedside Commode Toilet # Voids 3 1 - Exam PHYSICAL EXAMINATION: HEENT: Head is atraumatic, normocephalic. Pupils equal, round. Neck is supple. There is no elevated jugular venous pressure. HEART EXAMINATION: Heart sounds regular, S1 and S2 with a systolic murmur. CHEST EXAMINATION: Lungs reveal crackles to the right base. No chest wall tenderness is noted on palpation or with deep breathing. ABDOMEN: Soft, nontender. Bowel sounds are heard. No organomegaly noted. EXTREMITIES: 2+ peripheral pulses with no evidence of peripheral edema and no calf tenderness noted. NEUROLOGIC patient is awake, alert and oriented x3. - Labs CBC & Chem 7: 04/20/18 05:42 04/20/18 05:42 Labs: Abnormal Lab Results - Last 24 Hours (Table) 04/20/18 04/20/18 Range/Units 05:42 05:42 WBC 12.1 H (3.8-10.6) k/uL Neutrophils # 9.2 H (1.3-7.7) k/uL Monocytes # 1.5 H (0-1.0) k/uL Chloride 111 H (98-107) mmol/L BUN 18 H (7-17) mg/dL Microbiology - Last 24 Hours (Table) 04/17/18 23:00 Gram Stain - Final Sputum Sputum Culture - Final 04/17/18 11:00 Blood Culture - Preliminary Blood No Growth after 48 hours Assessment and Plan Plan: Assessment: #1 pneumonia with elevated lactic acid and right sided discomfort related to infectious process #2 acute renal failure, likely worsened by dehydration #3 paroxysmal atrial fibrillation, remains in sinus mechanism #4 hypertension #5 prior history of smoking Plan Cardiology's perspective, we'll recommend to continue current medications. We will follow her along with you now on an as-needed basis only, please don't hesitate to call with any questions. DNP note has been reviewed, I agree with a documented findings and plan of care. Patient was seen and examined.
[2018-04-20] MEDS: AZITHROMYCIN 500 MG TAB PO SCH (15:15)
[2018-04-20] MEDS: FUROSEMIDE 20 MG TAB PO SCH (16:28)
[2018-04-20] MEDS: VENLAFAXINE HCL ER 75 MG CAP PO SCH (22:48)
[2018-04-20] MEDS: ATENOLOL 25 MG TAB PO SCH (22:48)
[2018-04-21] MEDS: HEPARIN SODIUM,PORCINE 5,000 UNIT/ML 1 ML VIAL SQ SCH ×3 (00:13→15:31)
[2018-04-21] MEDS: LEVOTHYROXINE 125 MCG TAB PO SCH (05:03)
[2018-04-21] MEDS: PANTOPRAZOLE 40 MG TABLET PO SCH (05:03)
[2018-04-21 06:45] LABS: Basophils % (A) 0 %; Eosinophils # (A) 0.1 k/uL (0-0.7); Eosinophils % (A) 1 %; HCT 34.6 % (34.0-46.0); HGB 11.7 gm/dL (11.4-16.0); Lymphocytes % (A) 11 %; MCH 28.4 pg (25.0-35.0); MCHC 33.7 g/dL (31.0-37.0); MCV 84.4 fL (80.0-100.0); Mean Platelet Volume 8.5; Monocytes # (A) 0.9 k/uL (0-1.0); Monocytes % (A) 9 %; Neutrophils # (A) 7.4 k/uL (1.3-7.7); Neutrophils % (A) 77 %; Platelet Count 187 k/uL (150-450); RDW 13.7 % (11.5-15.5); WBC 9.6 k/uL (3.8-10.6)
[2018-04-21 06:51] LABS: Anion Gap 7 mmol/L; Blood Urea Nitrogen 15 mg/dL (7-17); Calcium 8.7 mg/dL (8.4-10.2); Carbon Dioxide 25 mmol/L (22-30); Chloride 108 mmol/L (98-107); Glucose 95 mg/dL (74-99); Potassium 3.3 mmol/L (3.5-5.1); Sodium 140 mmol/L (137-145)
[2018-04-21] MEDS: FUROSEMIDE 20 MG TAB PO SCH (09:10)
[2018-04-21] MEDS: IPRATROPIUM-ALBUTEROL 3 ML NEB INHALATION SCH ×3 (09:56→16:37)
[2018-04-21] MEDS ORDERED: Potassium Replacement Protocol 1 EACH MISC MISCELLANE PRN (10:09)
[2018-04-21 10:27] LABS: Glucose,Whole Blood 61 mg/dL (75-99)
[2018-04-21 10:27] LABS: Glucose,Whole Blood 63 mg/dL (75-99)
--- NOTE | 2018-04-21 11:35 | P.PN ---
Subjective This is a pleasant 67 years old female with past medical history of asthma, gastroesophageal reflux disease, hypertension, sleep apnea on CPAP/BiPAP. She presents with signs symptoms of right lower lobe pneumonia. Patient still feels dyspneic although she smoked a little bit improved. She still having coughing with some phlegm, unknown which color. However patient states that her chest pain has gone. No fever and vitals stable. She is saturating 93% on 2 L oxygen via NC. Patient has not been on oxygen at home. WBC is coming down to 12.1 K. Rest of the CBC and BMP was unremarkable. Her Lasix and atenolol are on hold in her blood pressure is okay now. She is currently on ceftriaxone and Zithromax. 04/21/2018 Patient states that she's limits improved regarding her dyspnea and coughing. She still making white phlegm. But she denies chest pain. She had low-grade fever at 99.8 yesterday. Blood pressure on the high side and norvasc is added. WBC came back to normal at 9.6. Potassium 3.3. Creatinine 0.7. Lactic acid that is normal at 0.8. Repeat chest x-ray from today is pending. Patient is currently on Zithromax and ceftriaxone Objective - Vital Signs Vital signs: Vital Signs Temp 99.0 F 04/21/18 04:00 Pulse 74 04/21/18 10:07 Resp 16 04/21/18 10:07 BP 166/83 04/21/18 04:00 Pulse Ox 92 L 04/21/18 09:56 Intake & Output 04/20/18 04/21/18 04/21/18 18:59 06:59 18:59 Intake Total 480 240 Balance 480 240 Weight 88.4 kg Intake: Oral 480 240 Other: Voiding Method Toilet # Voids 3 1 - Exam GENERAL: The patient is alert and oriented x3, not in any acute distress. Well developed, well nourished. HEENT: Pupils are round and equally reacting to light. EOMI. No scleral icterus. No conjunctival pallor. Normocephalic, atraumatic. No pharyngeal erythema. No thyromegaly. CARDIOVASCULAR: S1 and S2 present. No murmurs, rubs, or gallops. -PULMONARY: Chest is clear to auscultation, no wheezing or crackles. Right lower decreased breath sounds some 50 ABDOMEN: Soft, nontender, nondistended, normoactive bowel sounds. No palpable organomegaly. MUSCULOSKELETAL: No joint swelling or deformity. EXTREMITIES: No cyanosis, clubbing, or pedal edema. NEUROLOGICAL: Gross neurological examination did not reveal any focal deficits. SKIN: No rashes. - Labs CBC & Chem 7: 04/21/18 05:57 04/21/18 05:57 Labs: Abnormal Lab Results - Last 24 Hours (Table) 04/17/18 04/17/18 04/21/18 Range/Units 16:00 16:03 05:57 Potassium 3.3 L (3.5-5.1) mmol/L Chloride 108 H (98-107) mmol/L POC Glucose (mg/dL) 61 L 63 L (75-99) mg/dL Microbiology - Last 24 Hours (Table) 04/17/18 11:00 Blood Culture - Preliminary Blood No Growth after 72 hours 04/17/18 23:00 Gram Stain - Final Sputum Sputum Culture - Final Assessment and Plan Assessment: Committee acquired right lower lobe pneumonia Acute hypoxic respiratory failure secondary to above History of asthma History of GERD Essential hypertension History of sleep apnea Plan: This is a pleasant 67 years old female who presents because of pneumonia. Continue with antibiotics. Pulmonary team are following the patient. Patient also has been evaluated by kettle firer team.Labs and medication were reviewed.. Continue same treatment. Continue with symptomatic treatment. Resume home medication. Monitor lytes and vitals. DVT and GI prophylaxis. Further recommendations of the clinical course of the patient DVT prophylaxis: Subcutaneous heparin GI Prophylaxis: Protonix Prognosis is guarded
[2018-04-21] MEDS: POTASSIUM CHLORIDE ER 20 MEQ TAB.ER PO SCH ×2 (11:38→13:57)
[2018-04-21] MEDS ORDERED: amLODIPine 5 MG TAB PO SCH (11:45)
--- NOTE | 2018-04-21 11:59 | XR ---
EXAMINATION TYPE: XR chest 2V DATE OF EXAM: 04/21/2018 COMPARISON: Chest x-ray from yesterday and older studies through April 18, 2018 HISTORY: Pneumonia progress study. TECHNIQUE: Frontal and lateral views of the chest are obtained. FINDINGS: There is persistent small left pleural effusion and associated left basilar atelectasis an d/or infiltrate. There is persistent right upper lobe infiltrate silhouetting portion of right minor fissure extending towards right hilar level. Small to tiny right pleural effusion remains present on lateral view. There is additional patchy right basilar atelectasis and/or infiltrate. Patient slight ly rotated to the right on current study. The cardiac silhouette size remains within normal limits. The osseous structures are intact. Overlying EKG leads are redemonstrated. IMPRESSION: Persistent small to tiny left greater right pleural effusions. Persistent right upper lo be infiltrate. Persistent bibasilar acute atelectasis and/or infiltrate. No significant change from o ne day earlier.
[2018-04-21] MEDS: AZITHROMYCIN 500 MG TAB PO SCH (15:31)
--- NOTE | 2018-04-21 15:56 | P.PN ---
Subjective Progress Note Date: 04/21/18 Principal diagnosis: Acute community acquired right lower lobe pneumonia This is a very pleasant 67-year-old female patient who follows with Dr. Duenas as her primary care physician. She has a history of mild intermittent chronic bronchial asthma, esophageal reflux disease, hypertension, hypothyroidism. She has a remote history of smoking. He had recently been complaining of flulike symptoms some nausea no significant vomiting. She also has having some right upper quadrant pain that was moving into her right flank area. She was had undergone a CAT scan of the abdomen and pelvis which revealed a posterior right lower lobe consolidation with air bronchograms suspicious for focal right basilar pneumonia. We count 16.5. Creatinine 2.39. Potassium 6.9. Urinalysis with elevated WBCs. He was quite fatigued and lethargic. In the emergency room she received received 3 L of IV fluid resuscitation. She has been initiated on ceftriaxone and azithromycin. She also had an episode of atrial fibrillation with rapid ventricular response was initiated on a heparin drip. She is currently in normal sinus rhythm. She is seen today in consultation in the intensive care unit. She is awake and alert in no acute distress. She is maintaining good O2 saturations in the 90s on 2 L/ m per nasal cannula. She's been afebrile. Lactic improved to 3.3. On today's evaluation of 04/18/2018, the patient is doing well. Less short of breath compared to yesterday. Still coughing and she has a congested cough. Chest x-ray showing a right lower lobe consolidation consistent with pneumonia. The patient is hemodynamically stable. No cardiac arrhythmias the patient has taken a normal sinus rhythm. She has an adequate urine output. Lactic acid is improved. The white cell count is also improving and is currently down to 11.7. Cultures of been all negative and the patient remains on a combination of Rocephin and Zithromax. No other complaints otherwise for now. Overall condition is gradually improving. The third degree of the chest that have subsided compared to yesterday. On 04/19/2018 I'm seeing this patient for a follow-up. Clinically improved. She got moved out of the intensive care unit yesterday which was been for a right lung pneumonia. Her had a white cell count is improved. Her leukocytosis improved. The lactic acidosis is recovered. The patient's renal function is improved. Chest x-ray however showing worsening of the right perihilar pneumonia and the patient has developed peripheral consolidation and worsening atelectatic changes in the left lung base. Despite the radiographic worsening, the patient is to place of oxygen by nasal cannula. Altered mentation. She is coughing and she is unable to bring up much sputum. All of the cultures of been negative. Legionella urine antigen was sent and results are still pending for now. On 04/20/2018 patient seen in follow-up on selective care unit. She reports her breathing is improving, lung sounds are positive for diffuse crackles. Patient is on 2 L per nasal cannula pulse ox is 94%, afebrile. Blood, urine and sputum cultures are negative. No fever or chills. Repeat chest x-ray showed improvement of the right upper lobe infiltrate, and stable small left pleural effusion. Patient has been ambulating in the room, she still reports some exertional dyspnea, only does not wear oxygen at home. We will wean FiO2. Clinically she is improving. Today's labs were notable, WBC is 12.1, hemoglobin is 11.4, serum sodium is 141, potassium is 4.0, chloride is 111, B1 is 18 and creatinine 0.87 On 04/21/2018 patient seen in follow-up on selective care unit. She sits up in the chair, in no acute distress, she does qualify for home oxygen, she did desaturate below 88% with ambulation, currently on 2 L per nasal cannula, pulse ox of 92% at rest, has been tolerating ambulation. All cultures have been negative thus far. Today's lab work showed a white blood cell, 9.6, hemoglobin of 11.7, sodium is 140, potassium is 3.3, chloride is 1 week, the rest of the electrolytes and renal profile were within normal limits. Occasional cough, no chest congestion. Patient is on the combination of Rocephin and Zithromax. Follow-up chest x-ray today was reviewed with Dr. Sue, showed small tiny left greater than right pleural effusions, persistent right upper lobe infiltrate. No acute complaints, from pulmonary perspective patient could be considered for discharge home today Objective - Vital Signs Vital signs: Vital Signs Temp 99.0 F 04/21/18 04:00 Pulse 78 04/21/18 13:30 Resp 16 04/21/18 10:07 BP 166/83 04/21/18 04:00 Pulse Ox 92 L 04/21/18 09:56 Intake & Output 04/20/18 04/21/18 04/21/18 18:59 06:59 18:59 Intake Total 480 480 Balance 480 480 Weight 88.4 kg Intake: Oral 480 480 Other: Voiding Method Toilet # Voids 3 1 1 - Exam GENERAL EXAM: Alert, pleasant, 67-year-old white female on 2 L per nasal cannula comfortable in no apparent distress. HEAD: Normocephalic/atraumatic. EYES: Normal reaction of pupils, equal size. Conjunctiva pink, sclera white. NOSE: Clear with pink turbinates. THROAT: No erythema or exudates. NECK: No masses, no JVD, no thyroid enlargement, no adenopathy. CHEST: No chest wall deformity. Symmetrical expansion. LUNGS: Equal air entry with diffuse crackles, worse at the bases CVS: Regular rate and rhythm, normal S1 and S2, no gallops, no murmurs, no rubs ABDOMEN: Soft, nontender. No hepatosplenomegaly, normal bowel sounds, no guarding or rigidity. EXTREMITIES: No clubbing, no edema, no cyanosis, 2+ pulses and upper and lower extremities. MUSCULOSKELETAL: Muscle strength and tone normal. SPINE: No scoliosis or deformity SKIN: No rashes CENTRAL NERVOUS SYSTEM: Alert and oriented -3. No focal deficits, tone is normal in all 4 extremities. PSYCHIATRIC: Alert and oriented -3. Appropriate affect. Intact judgment and insight. - Labs CBC & Chem 7: 04/21/18 05:57 04/21/18 05:57 Labs: Abnormal Lab Results - Last 24 Hours (Table) 04/17/18 04/17/18 04/21/18 Range/Units 16:00 16:03 05:57 Potassium 3.3 L (3.5-5.1) mmol/L Chloride 108 H (98-107) mmol/L POC Glucose (mg/dL) 61 L 63 L (75-99) mg/dL Microbiology - Last 24 Hours (Table) 04/17/18 11:00 Blood Culture - Preliminary Blood No Growth after 72 hours Assessment and Plan Plan: Assessment: #1 Right-sided chest discomfort secondary to an acute exacerbation of community- acquired right lower lobe pneumonia. Currently on ceftriaxone and azithromycin. #2 Lactic acidosis secondary to above. Status post 4 L IV fluid resuscitation. Current lactic 3.3. #3 Acute renal failure suspect secondary to dehydration and hypotension current creatinine 2.39. #4 Leukocytosis secondary to above. #5 Suspected urinary tract infection, cultures pending. #6 Brief episode of atrial fibrillation with rapid ventricular response, currently in normal sinus rhythm. #7 Mild intermittent chronic bronchial asthma, currently inactive and stable. #8 Remote history of chronic tobacco dependence. #9 Hypothyroidism. #10 Obesity Plan: His chest x-ray has been reviewed with Dr. Sue, shows stable findings with tiny bilateral pleural effusions, and persistent right upper lobe infiltrate. Patient has been tolerating ambulation, no worsening dyspnea, she will need home oxygen at 2 L per nasal cannula. From pulmonary perspective she could be considered for discharge home today on oral course of oral ceftin and oral Zithromax for 5 more days. She'll need follow-up in the office with Dr. Omalley in 7-10 days. I performed a history & physical examination of the patient and discussed their management with my nurse practitioner, Marilynn Saleem. I reviewed the nurse practitioner's note and agree with the documented findings and plan of care. Lung sounds are positive for diffuse crackles. The findings and the impression was discussed with the patient. I attest to the documentation by the nurse practitioner. Time with Patient: Less than 30
[2018-04-21 16:11] VITALS: BP 149/82; TEMP 99.7
[2018-04-21 16:38] VITALS: RESP 16
[2018-04-21 16:49] VITALS: PULSE 78
--- NOTE | 2018-04-21 19:30 | P.DS ---
Providers Date of admission: 04/17/18 13:32 Attending physician: Helena Elias Consults: 04/17/18 14:14 Consult Physician Stat Consulting Provider: Diogo Omalley Consult Reason/Comments: icu Do you want consulting provider notified?: Yes 04/17/18 16:55 Consult Physician Stat Consulting Provider: Mita Umaña Consult Reason/Comments: new onset afib with RVR Do you want consulting provider notified?: Yes Primary care physician: [facility] Course: Diagnoses: Committee acquired right lower lobe pneumonia Acute hypoxic respiratory failure secondary to above History of asthma History of GERD Essential hypertension History of sleep apnea Hospital course: This is a pleasant 67 years old female with past medical history of asthma, gastroesophageal reflux disease, hypertension, sleep apnea on CPAP/BiPAP. She presents with signs symptoms of right lower lobe pneumonia. Patient presents with dyspnea and worsening cough with phlegm. She had also some chest pain. Chest x-ray showed right lower lobe pneumonia. Patient was treated with antibiotics as well as breathing treatments and oxygen. Patient showed interval improvement and returned close to her baseline with her dyspnea and chest pain significantly improved however she needed oxygen at home at 2 L/m via nasal cannula, which was provided to the patient and oxygen tank was at bedside. Patient has been evaluated by pulmonary team and cleared for discharge on 5 more days of antibiotics of cefotetan and doxycycline. Patient problems with management plus was discussed with the patient and she verbalized understanding and acceptance. at bedside. Patient was found stable and can be discharged home however she needs follow-up as an outpatient. Patient and agreed with the appointments and the timing made for the patient with pulmonary and PCP and stated they will follow- up Please refer to progress note from today for discharge exam, and further details Time spent more than 35 minutes Patient Condition at Discharge: Stable Plan - Discharge Summary Discharge Rx Participant: No New Discharge Prescriptions: New amLODIPine [Norvasc] 5 mg PO DAILY #30 tab Cefuroxime Axetil [Ceftin] 500 mg PO BID 5 Days #10 tab Doxycycline [Vibramycin] 100 mg PO BID 5 Days #10 capsule Acyclovir 5% Oint [Zovirax Oint] 1 applic TOPICAL 5XD 5 Days #1 tube Albuterol Inhaler [Ventolin Hfa Inhaler] 1 - 2 puff INHALATION RT-Q6H PRN #1 inhaler PRN Reason: Shortness Of Breath Or Wheezing Continue Theophylline 24 Hour [Yonatan-24] 400 mg PO QAM Levothyroxine Sodium [Synthroid] 125 mcg PO QAM Furosemide [Lasix] 20 mg PO DAILY Atenolol 25 mg PO HS Theophylline Anhydrous [Theophylline] 200 mg PO HS Nitroglycerin Sl Tabs [Nitrostat] 0.4 mg SUBLINGUAL Q5M PRN PRN Reason: Angina Pantoprazole Sodium 40 mg PO DAILY Venlafaxine HCl ER [Effexor XR] 75 mg PO HS Discharge Medication List Atenolol 25 mg PO HS 04/04/15 [History] Furosemide [Lasix] 20 mg PO DAILY 04/04/15 [History] Levothyroxine Sodium [Synthroid] 125 mcg PO QAM 04/04/15 [History] Theophylline 24 Hour [Yonatan-24] 400 mg PO QAM 04/04/15 [History] Theophylline Anhydrous [Theophylline] 200 mg PO HS 09/18/17 [History] Nitroglycerin Sl Tabs [Nitrostat] 0.4 mg SUBLINGUAL Q5M PRN 04/17/18 [History] Pantoprazole Sodium 40 mg PO DAILY 04/17/18 [History] Venlafaxine HCl ER [Effexor XR] 75 mg PO HS 04/17/18 [History] Acyclovir 5% Oint [Zovirax Oint] 1 applic TOPICAL 5XD 5 Days #1 tube 04/21/18 [ Rx] Albuterol Inhaler [Ventolin Hfa Inhaler] 1 - 2 puff INHALATION RT-Q6H PRN #1 inhaler 04/21/18 [Rx] Cefuroxime Axetil [Ceftin] 500 mg PO BID 5 Days #10 tab 04/21/18 [Rx] Doxycycline [Vibramycin] 100 mg PO BID 5 Days #10 capsule 04/21/18 [Rx] amLODIPine [Norvasc] 5 mg PO DAILY #30 tab 04/21/18 [Rx] Follow up Appointment(s)/Referral(s): Sabrina Uribe MD [STAFF PHYSICIAN] - 05/01/18 3:30 pm Laura Duenas DO [Primary Care Provider] - 05/04/18 1:00 pm (Friday) Patient Instructions/Handouts: Urinary Tract Infection in Women (DC), Sepsis ( GEN), Pneumonia (DC) Activity/Diet/Wound Care/Special Instructions: [facility] - [phone] - home oxygen cardiac diet activity is limited till you see your doctor Discharge Disposition: HOME SELF-CARE
== END 2018-04-21 18:25 | disposition home or self-care (01) | DRG 871 ==
LOC: EC 10:17 → 2SICU 13:32 → 3SCARD 04-18 22:34
PROVIDERS: ADMIT Hospitalist; ATTEND Hospitalist
DX: A41.9 Sepsis, unspecified organism (principal); J18.9 Pneumonia, unspecified organism; J96.01 Acute respiratory failure with hypoxia; N17.9 Acute kidney failure, unspecified; E87.2 Acidosis; R65.20 Severe sepsis without septic shock; I48.0 Paroxysmal atrial fibrillation; I27.20 Pulmonary hypertension, unspecified; I08.3 Combined rheumatic disorders of mitral, aortic and tricuspid valves; J45.20 Mild intermittent asthma, uncomplicated; E03.9 Hypothyroidism, unspecified; G47.30 Sleep apnea, unspecified; K21.9 Gastro-esophageal reflux disease without esophagitis; I10 Essential (primary) hypertension; F32.9 Major depressive disorder, single episode, unspecified; E86.0 Dehydration; R15.2 Fecal urgency; E66.9 Obesity, unspecified; Z68.33 Body mass index [BMI] 33.0-33.9, adult; Z90.49 Acquired absence of other specified parts of digestive tract; Z79.890 Hormone replacement therapy; Z79.899 Other long term (current) drug therapy; Z99.89 Dependence on other enabling machines and devices; Z90.710 Acquired absence of both cervix and uterus; Z87.891 Personal history of nicotine dependence; Z80.6 Family history of leukemia; Z80.1 Family history of malignant neoplasm of trachea, bronchus and lung
CPT/HCPCS: 36415; 71045; 71046; 74176; 80048; 80053; 81001; 82150; 83605; 83690; 84132; 85025; 85610; 85730; 87040; 87070; 87086; 87205; 87449; 93005; 93306; 94640; 94760; 96361; 96365; 96375; 96376; 99291

== ENCOUNTER → 2018-05-06 | Outpatient (CLI) | payer MEDICARE ==
--- NOTE | 2018-05-07 07:23 | CT ---
EXAMINATION TYPE: CT chest w con DATE OF EXAM: 05/06/2018 COMPARISON: Chest x-ray from 5 days ago and older x-rays HISTORY: Abnormal findings on CXR, pneumonia. CT DLP: 590 mGycm. Automated Exposure Control for Dose Reduction was Utilized. TECHNIQUE: CT scan of the thorax is performed following with IV Contrast, patient injected with 80 m L of Isovue 300. FINDINGS: LUNGS: Masslike consolidation posterior aspect right upper lobe remains present, there appear to be a ir bronchograms along the medial lower central aspect of lesion with more dense consolidation along t he periphery. I favor focal pneumonia or infection. I would advise follow-up CT to document complete resolution as the more peripheral component lacks air bronchograms. There is adjacent trace focal ple ural fluid axial image 17. There is additional masslike consolidation superior aspect right lower lob e seen best sagittal image 29 and axial image 23. Left lung is clear. No pleural effusion or pneumoth orax is present bilaterally. Background mild underlying emphysematous changes seen. MEDIASTINUM: There are no greater than 1 cm hilar or mediastinal lymph nodes. No cardiomegaly or p ericardial effusion is seen. Thyroid gland is small in size. OTHER: Small hiatal hernia is present. Cholecystectomy clips are noted. Liver is diffusely low dense consistent with fatty infiltration. Single calcification spleen is seen. IMPRESSION: 1. As above, favor multifocal pneumonia largest area inferior lateral right upper lobe with additiona l involvement of the superior aspect right lower lobe. Correlate clinically. Consider short-term foll ow-up x-ray and/or CT in one to 2 months time to document complete resolution.
== END ==
LOC: RADCTMAIN 15:11
PROVIDERS: ATTEND Internal Medicine
DX: J18.9 Pneumonia, unspecified organism (principal)
CPT/HCPCS: 82565; 84520; 71260; 36415; Q9967

== ENCOUNTER 2018-05-14 13:17 | Day surgery (SDC) | payer MEDICARE ==
[2018-05-11 15:10] VITALS: BMI 30.4
[~2018-05-14 13:17] MED LIST changes: +ALBUTEROL NEB (CONC) 2.5 MG/0.5 ML INHALATION ONE; +LACTATED RINGERS 1,000 ML IV ONE; +LIDOCAINE 2% (PF) 20 MG/ML 5 ML VIAL INHALATION ONE; +LIDOCAINE VISCOUS 2% 15 ML CUP MUCOUS MEM ONE; +SODIUM CHLORIDE 0.9% 1,000 ML IV SCH
[2018-05-14 13:41] VITALS: TEMP 98.3
[2018-05-14] MEDS ORDERED: MIDAZOLAM 2 MG/2 ML VIAL ONE (15:27)
[2018-05-14] MEDS ORDERED: PROPOFOL 10 MG/ML 20 ML VIAL IV ONE (15:27)
[2018-05-14] MEDS ORDERED: LIDOCAINE 1% INJ 10MG/ML (20 ML MDV) ONE (15:27)
[2018-05-14] MEDS ORDERED: LIDOCAINE 2% INJ 20 MG/ML INTRATRACH ONE (15:51)
--- NOTE | 2018-05-14 16:23 | XR ---
EXAMINATION TYPE: XR chest 1V portable DATE OF EXAM: 05/14/2018 Comparison: 04/21/2018 Clinical History: 68-year-old female POST BRONCHOSCOPY WITH BX Findings: Rightward patient rotation alters normal cardiomediastinal contours. Redemonstrated consolidation rig ht upper lobe. The consolidation appears slightly increased. Left pleural effusion has improved from prior. Heart borderline in size. Mild diffuse interstitial prominence is similar. No pneumothorax see n. Impression: Right upper lobe consolidation similar to slightly larger. In the setting of biopsy, there could be s ome mild postbiopsy hemorrhage. Left pleural effusion improved. No appreciable pneumothorax.
[2018-05-14 16:31] VITALS: RESP 16
[2018-05-14 16:32] VITALS: BP 135/68; PULSE 79
--- NOTE | 2018-05-14 17:09 | OP ---
OPERATIVE REPORT PROCEDURE: Bronchoscopy and transbronchial biopsy. PREOPERATIVE DIAGNOSIS: Mass-like consolidation in the right upper lobe. Differential diagnosis includes pneumonia, bronchiolitis obliterans organizing pneumonia, post-inflammatory change and malignancy. POSTOPERATIVE DIAGNOSIS: Mass-like consolidation in the right upper lobe. Differential diagnosis includes pneumonia, bronchiolitis obliterans organizing pneumonia, post-inflammatory change and malignancy. ANESTHESIA USED: IV conscious sedation. PROCEDURE DESCRIPTION: The patient was prepared according to bronchoscopy protocol. Oxygen was applied via nasal cannula and we monitored while she was supine her pulse oximetry and oxygen saturation continuously. Blood pressure was intermittently monitored, and cardiac rhythm was continuously monitored. After adequate IV conscious sedation, the bronchoscope was inserted through the right naris down to the area of the vocal cords. They were noted to be patent. Lidocaine was applied over the vocal cords, and the bronchoscope was advanced further down to the trachea. Thorough examination was done of the trachea, claudine, right upper lobe, right middle lobe, right lower lobe, left upper lobe, lingula, and left lower lobe. There was clearly evidence of early takeoff of the right upper lobe, and the patient looked like she almost had 3 carinas. At any rate, the right upper lobe was examined; there was no evidence of any endobronchial tumor. Using fluoroscopy, multiple transbronchial biopsies were done from the right upper lobe apical and posterior segment. Then lavage of the right upper lobe, same segments, was done uneventfully. Procedure was well tolerated. No evidence of any complications. No blood loss. Chest x-ray postoperatively showed no complications. MMODL / IJN: [id number] /
[2018-05-14 19:16] LABS: Appearance,BF Hazy; Color,BF Red; Nucleated Cells, Body Fluid 400 /uL; RBC, Body Fluid 13150 /uL
[2018-05-14 19:17] LABS: Mononuclear WBC,Body Fluid 72 %; Polynuclear WBC,Body Fluid 26 %
--- NOTE | 2018-05-15 07:11 | FL ---
EXAMINATION TYPE: FL bronchoscopy DATE OF EXAM: 05/14/2018 COMPARISON: NONE HISTORY: Fluoroscopy TECHNIQUE: Fluoroscopy. FINDINGS: Fluoroscopic guidance was provided during procedure performed 15 seconds IMPRESSION: As Above.
== END 2018-05-14 16:44 | disposition home or self-care (01) ==
LOC: ORWHC2ENDO 13:17
PROVIDERS: ATTEND Internal Medicine
DX: J18.9 Pneumonia, unspecified organism (principal); I10 Essential (primary) hypertension; E78.5 Hyperlipidemia, unspecified; E03.9 Hypothyroidism, unspecified; J45.20 Mild intermittent asthma, uncomplicated; J44.9 Chronic obstructive pulmonary disease, unspecified; F32.9 Major depressive disorder, single episode, unspecified; I48.0 Paroxysmal atrial fibrillation; E66.9 Obesity, unspecified; G47.33 Obstructive sleep apnea (adult) (pediatric); K21.9 Gastro-esophageal reflux disease without esophagitis; Z79.51 Long term (current) use of inhaled steroids; Z87.891 Personal history of nicotine dependence; Z79.899 Other long term (current) drug therapy; Z79.890 Hormone replacement therapy; Z99.89 Dependence on other enabling machines and devices; Z88.8 Allergy status to other drugs, medicaments and biological substances; Z68.30 Body mass index [BMI] 30.0-30.9, adult
CPT/HCPCS: 87529 ×2; 87798 ×5; 94640; 87496; 87498; 88108; 88305; 89050; 87252; 87502; 87634; 87070; 87205; 87116; 87102; 87206; 71045; 31628; 31624; J2001 ×3; J2250; J2704

== ENCOUNTER → 2018-10-28 | Outpatient (CLI) | payer MEDICARE ==
--- NOTE | 2018-10-28 11:35 | US ---
EXAMINATION TYPE: US thyroid st tissue head/neck DATE OF EXAM: 10/28/2018 COMPARISON: MRI 10/17/2017, CT 04/12/2015 CLINICAL HISTORY: Right parotid nodule D11.0. Right parotid mass visualized on CT and MRI. Previously biopsied under CT in 2016- benign. Hypoechoic area visualized inferior to the right parotid gland measuring 1.6 x 1.5 x 1.4 cm IMPRESSION: 1. There is a hypoechoic lesion in the right parotid gland region. This is not a simple cyst. If clin ically warranted, repeat CT soft tissue neck with contrast could reevaluate this finding.
== END | disposition home or self-care (01) ==
LOC: RADUSWWP 09:25
PROVIDERS: ATTEND Otolaryngology
DX: K11.8 Other diseases of salivary glands (principal)
CPT/HCPCS: 76536

== ENCOUNTER → 2019-02-10 | Outpatient (CLI) | payer MEDICARE ==
--- NOTE | 2019-02-10 21:26 | CT ---
EXAMINATION TYPE: CT soft tissue neck w con DATE OF EXAM: 02/10/2019 HISTORY: swelling to neck COMPARISON: CT neck April 12, 2015. Neck ultrasound October 28, 2018 CT DLP: 304.3 mGycm. Automated Exposure Control for Dose Reduction was Utilized. TECHNIQUE: CT scan of the neck is performed with IV Contrast, patient injected with 76cc mL of Isovu e 300, axial images are obtained, coronal and sagittal reformatted images are reviewed. FINDINGS: Airway: Small size thyroid redemonstrated. Upper lungs show fairly moderate underlying emphysematous change currently. Parotid/submandibular glands: Corresponding to recent ultrasound in the deep right parotid gland ther e is persistent well-defined oval slightly hyperdense 1.7 x 1.1 cm solid mass. This is not significan tly changed in size from 2016 CT and is thus most likely benign. Carotid/Vascular Structures: No suspicious abnormalities seen. Osseous Structures: [id number] multilevel spurring and mild multilevel disc space narrowing mid to lower cervical spine. Other: Hyperostosis frontalis is seen. Nasal septum is deviated to right of midline similar to prior CT. Slightly prominent but subcentimeter left submandibular lymph nodes axis image 38 and are not sig nificantly changed from prior CT. No suspicious greater than 1 cm adenopathy is noted. 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 No new suspicio us mass or adenopathy.
== END | disposition home or self-care (01) ==
LOC: RADCTMAIN 15:43
PROVIDERS: ATTEND Otolaryngology
DX: R22.1 Localized swelling, mass and lump, neck (principal); M54.2 Cervicalgia
CPT/HCPCS: 82565; 84520; 70491; 36415; Q9967

== ENCOUNTER → 2019-05-25 | Outpatient (CLI) | payer MEDICARE ==
--- NOTE | 2019-05-26 10:03 | MM ---
Reason for exam: screening (asymptomatic). Last mammogram was performed 1 year and 2 months ago. History: Patient is postmenopausal. Took estrogen for 1 year beginning at age 37. Physical Findings: A clinical breast exam by your physician is recommended on an annual basis and results should be correlated with mammographic findings. MG 3D Screening Mammo W/Cad Bilateral CC and MLO view(s) were taken. Prior study comparison: March 20, 2018, bilateral MG 3d screening mammo w/cad. The breast tissue is heterogeneously dense. This may lower the sensitivity of mammography. No suspicious abnormality. No significant changes when compared with prior studies. ASSESSMENT: Negative, BI-RAD 1 RECOMMENDATION: Routine screening mammogram of both breasts in 1 year.
== END | disposition home or self-care (01) ==
LOC: RADMAMWWP 14:25
PROVIDERS: ATTEND Family Medicine
DX: Z12.31 Encounter for screening mammogram for malignant neoplasm of breast (principal)
CPT/HCPCS: 77063; 77067

== ENCOUNTER → 2020-01-07 | Outpatient (CLI) | payer MEDICARE ==
--- NOTE | 2020-01-07 14:25 | US ---
EXAMINATION TYPE: US thyroid st tissue head/neck DATE OF EXAM: 01/07/2020 COMPARISON: CT neck February 10, 2019 CLINICAL HISTORY: D11.0 RT PAROTID NODULE. Right parotid had mri years ago. Thyroid nodule? GLAND SIZE: Right Lobe: 3.9 x 1.4 x 1.1 cm Overall Parenchyma: heterogenous Left Lobe: 4.1 x .7 x .8 cm Overall Parenchyma: heterogeneous Isthmus Thickness: .2 cm NODULES RIGHT: # of nodules measured on right: 0 LEFT: # of nodules measured on left: 0 ISTHMUS: # of nodules measured in the isthmus: 0 Heterogeneous small sized thyroid without discrete nodule. Technologist rodriguez a subcentimeter left-si ded benign lymph node. IMPRESSION: As above. Findings correlate with prior CT.
== END | disposition home or self-care (01) ==
LOC: RADUSWWP 13:46
PROVIDERS: ATTEND Otolaryngology
DX: E07.89 Other specified disorders of thyroid (principal); D36.0 Benign neoplasm of lymph nodes
CPT/HCPCS: 76536

== ENCOUNTER → 2020-01-26 | Outpatient (CLI) | payer MEDICARE | END | disposition home or self-care (01) | LOC: RADUSWWP 13:36 | PROVIDERS: ATTEND Otolaryngology | DX: Z53.9 Procedure and treatment not carried out, unspecified reason (principal) ==

== ENCOUNTER → 2020-06-07 | Outpatient (CLI) | payer MEDICARE ==
--- NOTE | 2020-06-09 11:06 | MM ---
Reason for exam: screening (asymptomatic). Last mammogram was performed 1 year ago. History: Patient is postmenopausal. Took estrogen for 1 year beginning at age 37. Physical Findings: A clinical breast exam by your physician is recommended on an annual basis and results should be correlated with mammographic findings. MG 3D Screening Mammo W/Cad Bilateral CC and MLO view(s) were taken. Prior study comparison: May 25, 2019, bilateral MG 3d screening mammo w/cad. March 20, 2018, bilateral MG 3d screening mammo w/cad. There are scattered fibroglandular densities. No significant changes when compared with prior studies. ASSESSMENT: Benign, BI-RAD 2 RECOMMENDATION: Routine screening mammogram of both breasts in 1 year.
== END | disposition home or self-care (01) ==
LOC: RADMAMWWP 11:06
PROVIDERS: ATTEND Family Medicine
DX: Z12.31 Encounter for screening mammogram for malignant neoplasm of breast (principal); Z78.0 Asymptomatic menopausal state
CPT/HCPCS: 77063; 77067

== ENCOUNTER → 2020-06-21 | Outpatient (CLI) | payer MEDICARE ==
--- NOTE | 2020-06-21 15:38 | XR ---
EXAMINATION TYPE: XR lumbosacral spine min 4V DATE OF EXAM: 06/21/2020 COMPARISON: None HISTORY: Low back pain TECHNIQUE: 5 view lumbar spine FINDINGS: There may be 6 lumbar type vertebral bodies. The S1 level may have attempted lumbarization. Pedicles are intact. Facets are normal. Disc heights are preserved. Vertebral body heights are prese rved. IMPRESSION: 1. No acute osseous abnormality
== END | disposition home or self-care (01) ==
LOC: RADXRMAIN 15:00
PROVIDERS: ATTEND Family Medicine
DX: M54.5 Low back pain (principal); G89.29 Other chronic pain
CPT/HCPCS: 72110

== ENCOUNTER 2020-12-18 14:57 | Inpatient (IN) | payer MEDICARE ==
--- NOTE | 2020-12-18 17:05 | XR ---
EXAMINATION TYPE: XR chest 2V DATE OF EXAM: 12/18/2020 COMPARISON: NONE TECHNIQUE: PA and lateral views submitted. HISTORY: Cough FINDINGS: The lungs are clear and there is no pneumothorax, pleural effusion, or focal pneumonia. Hypertrophi c and degenerative changes of the spine. Biapical pleural thickening. Surgical clips in the abdomen. Hyperinflation suggests COPD. IMPRESSION: 1. Findings suggest COPD. Correlate for chronic interstitial lung disease or interstitial pneumonitis , bronchitis.
[2020-12-18] MEDS ORDERED: ACETAMINOPHEN TAB 325 MG TAB PO PRN (17:49)
[2020-12-18] MEDS ORDERED: DEXAMETHASONE SOD PHOSPHATE 10 MG/ML 1 ML VIAL IV STA (17:50)
[2020-12-18 18:27] LABS: Basophils % (A) 0 %; Eosinophils % (A) 0 %; HCT 44.4 % (34.0-46.0); HGB 15.6 gm/dL (11.4-16.0); Lymphocytes # (A) 1.3 k/uL (1.0-4.8); Lymphocytes % (A) 21 %; MCH 30.1 pg (25.0-35.0); MCHC 35.2 g/dL (31.0-37.0); MCV 85.6 fL (80.0-100.0); Mean Platelet Volume 9.3; Monocytes # (A) 0.4 k/uL (0-1.0); Monocytes % (A) 6 %; Neutrophils # (A) 4.6 k/uL (1.3-7.7); Neutrophils % (A) 72 %; Platelet Count 161 k/uL (150-450); RBC 5.18 m/uL (3.80-5.40); WBC 6.4 k/uL (3.8-10.6)
[2020-12-18 18:40] LABS: INR 0.9 (<1.2); Partial Thromboplastin Time 27.6 sec (22.0-30.0)
[2020-12-18 18:45] LABS: Albumin 3.8 g/dL (3.5-5.0); C Reactive Protein 4.1 mg/dL (<1.0); Calcium 8.8 mg/dL (8.4-10.2); Magnesium 2.3 mg/dL (1.6-2.3); Potassium 3.9 mmol/L (3.5-5.1); Total Bilirubin 0.7 mg/dL (0.2-1.3); Total Protein 6.6 g/dL (6.3-8.2)
[2020-12-18] MEDS ORDERED: NALOXONE 0.4 MG/ML 1 ML VIAL IV PRN (19:43)
[2020-12-18] MEDS ORDERED: ONDANSETRON 4 MG/2 ML VIAL IVP PRN (19:43)
[2020-12-18] MEDS ORDERED: SODIUM CHLORIDE 0.9% 1,000 ML IV STA (20:18)
[2020-12-18] MEDS: ATORVASTATIN 20 MG TAB PO SCH (21:26)
[2020-12-18] MEDS: atenoloL 25 MG TAB PO SCH (21:26)
[2020-12-18] MEDS: VENLAFAXINE HCL ER 75 MG CAP PO SCH (21:26)
--- NOTE | 2020-12-18 23:14 | ED ---
General Adult HPI - General Chief complaint: Nausea/Vomiting/Diarrhea Stated complaint: nausea, vomiting Time Seen by Provider: 12/18/20 17:03 Source: patient, family, RN notes reviewed, old records reviewed Mode of arrival: wheelchair Limitations: no limitations - History of Present Illness Initial comments: Patient is a 70-year-old female with past medical history remarkable for asthma, hypertension, sleep apnea who is overall a poor historian presents emergency Department complaining of shortness of breath, nausea and vomiting for the last 3-4 days. I evaluated the patient and she was placed in a room, and Covid swab and chest x-ray were obtained prior to me evaluating her. Was found she is Covid positive. She denies being vaccinated for COVID-19. She denies any chest pain at this time. Denies any headache but does endorse dries fatigue. She is been having nonbilious, bloody episodes. Denies any diarrhea. Denies any dysuria, hematuria, vaginal discharge or bleeding. She has no other acute complaints at this time. Denies any peripheral edema. Patient presents over concern for an acute illness at this time. - Related Data Home Medications Medication Instructions Recorded Confirmed Furosemide [Lasix] 20 mg PO DAILY 04/04/15 12/18/20 Levothyroxine Sodium [Synthroid] 125 mcg PO DAILY 04/04/15 12/18/20 Nitroglycerin Sl Tabs [Nitrostat] 0.4 mg SUBLINGUAL Q5M PRN 04/17/18 12/18/20 Pantoprazole Sodium 40 mg PO DAILY 04/17/18 12/18/20 Venlafaxine HCl ER [Effexor XR] 75 mg PO HS 04/17/18 12/18/20 Theophylline Anhydrous 600 mg PO HS 05/11/18 12/18/20 [Theophylline] Atenolol [Tenormin] 50 mg PO DAILY 12/18/20 12/18/20 Calcium Carbonate [Calcium] 600 mg PO DAILY 12/18/20 12/18/20 Cholecalciferol [Vitamin D3 (25 50 mcg PO DAILY 12/18/20 12/18/20 Mcg = 1000 Iu)] Magnesium Oxide [Magox 400] 400 mg PO DAILY 12/18/20 12/18/20 Multivitamins, Thera [Multivitamin 1 tab PO DAILY 12/18/20 12/18/20 (formulary)] [place]-3 Fatty Acids [[place]-3] 1,000 mg PO DAILY 12/18/20 12/18/20 allopurinoL [Zyloprim] 300 mg PO DAILY@1200 12/18/20 12/18/20 Allergies Allergy/AdvReac Type Severity Reaction Status Date / Time amlodipine [From [facility]] Allergy Unknown Swelling Verified 12/18/20 16:25 IN legs and feet Review of Systems ROS Statement: Those systems with pertinent positive or pertinent negative responses have been documented in the HPI. Review of Systems: CONST: Denies fever EYES: Denies blurry vision ENT: Denies nasal congestion C/V: Denies Chest pain RESP: Endorses shortness of breath GI: Nurses nausea and vomiting : Denies dysuria SKIN: Denies rash. MSK: Denies joint pain. NEURO: Denies headache ROS Other: All systems not noted in ROS Statement are negative. Past Medical History Past Medical History: Asthma, GERD/Reflux, Hyperlipidemia, Hypertension, Osteoarthritis (OA), Sleep Apnea/CPAP/BIPAP Additional Past Medical History / Comment(s): CHRONIC BRONCHIAL ASTHMA, NO C- PAP, OCCASIONAL PALPITATIONS, HOSPITALIZED AT [facility] FOR PNEUMONIA, DEHYDRATION , UTI & EPISODE OF A-FIB., HX OF BLOOD IN STOOL., STATES CONSTIPATION NOW., STATES FORGETFUL, OCC. 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 History of Any Multi-Drug Resistant Organisms: None Reported Past Surgical History: Cholecystectomy, Hysterectomy Additional Past Surgical History / Comment(s): fatty tissue removed under left breast,bronchoscopy Past Anesthesia/Blood Transfusion Reactions: No Reported Reaction Additional Past Anesthesia/Blood Transfusion Reaction / Comment(s): . Past Psychological History: Depression Past Alcohol Use History: None Reported Past Drug Use History: None Reported - Past Family History Daughter(s) Family Medical History: Cancer Additional Family Medical History / Comment(s): form of leukemia Mother Family Medical History: Cancer Additional Family Medical History / Comment(s): lung Father Family Medical History: Cancer Additional Family Medical History / Comment(s): lung General Exam - General Exam Comments Initial Comments: General: Appears in no acute distress. Patient is febrile. HEAD: Normal with no signs of head trauma. EYES: PERRLA, EOMI, conjunctiva normal, no discharge. ENT: Hearing grossly intact, normal oropharynx. Dry mucous membranes. RESPIRATORY: Mildly coarse breath sounds at the bases. No obvious wheezes or rhonchi. No increased work of breathing. Patient is hypoxic on room air to 88%. C/V: Regular rate and rhythm. S1 and S2 auscultated, no edema, peripheral pulses 2+ and intact throughout ABD: Abd is soft, nontender, nondistended EXT: Normal range of motion, no obvious deformity SKIN: No rashes or lesions observed on exposed skin. NEURO: Alert and oriented 4. Limitations: no limitations Course Vital Signs 12/18/20 12/18/20 12/18/20 16:22 19:25 21:00 Temperature 101.9 F H 98.6 F Pulse Rate 74 71 Respiratory 20 18 Rate Blood Pressure 131/78 140/71 O2 Sat by Pulse 91 L 93 L Oximetry Medical Decision Making - Medical Decision Making Based on the patient's presentation and physical exam, I'm concerned for COVID- 19 pneumonia at this time. This is likely the cause of her symptoms. Swab was obtained in triage and was positive. Therefore we will obtain COVID-19 laboratory studies. Patient is hypoxic to remain as I talk with her dentist 88%. Therefore she will be admitted to the hospital and placed on supplemental oxygen. She'll receive a dose of Decadron here in the department and I will be ordered twice a day. She'll receive Tylenol for her current mild fever. She also receive a 1 L fluid bolus as she is dehydrated after multiple episodes of nonbilious nonbloody emesis. She'll be connected to continuous cardiac monitoring with continuous pulse oximetry while she is here in the department. Patient was in agreement with this plan. EKG revealed no signs of acute ischemia. Chest x-ray revealed mild bilateral infiltrates suggestive of a pneumonitis interstitial lung disease. Likely secondary to COVID-19 pneumonia. Laboratory studies were remarkable for a d- dimer within normal limits. Patient is mildly hyponatremic at 130. Patient's AST is mildly elevated to 46. LDH is mildly elevated to 728. CRP is mildly elevated to 4.1. COVID-19 swab is positive. Reevaluation come patient has hypoxia is improved on nasal cannula to 93%. Her fever is also improved at this time after receiving antipyretics. She states she is feeling better and is no longer is nauseous. I signed her the results of her laboratory studies and imaging and extend that due to her requiring supplemental oxygenation would like to admit the hospital. She was in agreement this plan. I spoke with the admitting team under Betzy Batista of [facility], who accepted the patient. Patient will be admitted under Dr. Elias. Patient does not require urgent pulmonology or ID evaluation, however I will consult both Dr. Mc of pulm and Dr. Sosa of infectious disease for evaluation tomorrow. Patient was therefore admitted in serious condition to telemetry bed. - Lab Data Result diagrams: 12/18/20 18:01 12/18/20 18:01 Lab Results 12/18/20 12/18/20 12/18/20 Range/Units 16:26 18:01 18:01 WBC 6.4 (3.8-10.6) k/uL RBC 5.18 (3.80-5.40) m/uL Hgb 15.6 (11.4-16.0) gm/dL Hct 44.4 (34.0-46.0) % MCV 85.6 (80.0-100.0) fL MCH 30.1 (25.0-35.0) pg MCHC 35.2 (31.0-37.0) g/dL RDW 14.0 (11.5-15.5) % Plt Count 161 (150-450) k/uL MPV 9.3 Neutrophils % 72 % Lymphocytes % 21 % Monocytes % 6 % Eosinophils % 0 % Basophils % 0 % Neutrophils # 4.6 (1.3-7.7) k/uL Lymphocytes # 1.3 (1.0-4.8) k/uL Monocytes # 0.4 (0-1.0) k/uL Eosinophils # 0.0 (0-0.7) k/uL Basophils # 0.0 (0-0.2) k/uL PT 10.0 (9.0-12.0) sec INR 0.9 (<1.2) APTT 27.6 (22.0-30.0) sec D-Dimer 0.52 (<0.60) mg/L FEU Sodium (137-145) mmol/L Potassium (3.5-5.1) mmol/L Chloride (98-107) mmol/L Carbon Dioxide (22-30) mmol/L Anion Gap mmol/L BUN (7-17) mg/dL Creatinine (0.52-1.04) mg/dL Est GFR (CKD-EPI)AfAm (>60 ml/min/1.73 sqM) Est GFR (CKD-EPI)NonAf (>60 ml/min/1.73 sqM) Glucose (74-99) mg/dL Plasma Lactic Acid Percy (0.7-2.0) mmol/L Calcium (8.4-10.2) mg/dL Magnesium (1.6-2.3) mg/dL Total Bilirubin (0.2-1.3) mg/dL AST (14-36) U/L ALT (4-34) U/L Alkaline Phosphatase (38-126) U/L Lactate Dehydrogenase (313-618) U/L C-Reactive Protein (<1.0) mg/dL Total Protein (6.3-8.2) g/dL Albumin (3.5-5.0) g/dL Coronavirus (PCR) Detected A (Not Detectd) 12/18/20 12/18/20 Range/Units 18:01 18:01 WBC (3.8-10.6) k/uL RBC (3.80-5.40) m/uL Hgb (11.4-16.0) gm/dL Hct (34.0-46.0) % MCV (80.0-100.0) fL MCH (25.0-35.0) pg MCHC (31.0-37.0) g/dL RDW (11.5-15.5) % Plt Count (150-450) k/uL MPV Neutrophils % % Lymphocytes % % Monocytes % % Eosinophils % % Basophils % % Neutrophils # (1.3-7.7) k/uL Lymphocytes # (1.0-4.8) k/uL Monocytes # (0-1.0) k/uL Eosinophils # (0-0.7) k/uL Basophils # (0-0.2) k/uL PT (9.0-12.0) sec INR (<1.2) APTT (22.0-30.0) sec D-Dimer (<0.60) mg/L FEU Sodium 130 L (137-145) mmol/L Potassium 3.9 (3.5-5.1) mmol/L Chloride 98 (98-107) mmol/L Carbon Dioxide 21 L (22-30) mmol/L Anion Gap 11 mmol/L BUN 15 (7-17) mg/dL Creatinine 0.82 (0.52-1.04) mg/dL Est GFR (CKD-EPI)AfAm 85 (>60 ml/min/1.73 sqM) Est GFR (CKD-EPI)NonAf 74 (>60 ml/min/1.73 sqM) Glucose 117 H (74-99) mg/dL Plasma Lactic Acid Percy 1.0 (0.7-2.0) mmol/L Calcium 8.8 (8.4-10.2) mg/dL Magnesium 2.3 (1.6-2.3) mg/dL Total Bilirubin 0.7 (0.2-1.3) mg/dL AST 46 H (14-36) U/L ALT 26 (4-34) U/L Alkaline Phosphatase 51 (38-126) U/L Lactate Dehydrogenase 728 H (313-618) U/L C-Reactive Protein 4.1 H (<1.0) mg/dL Total Protein 6.6 (6.3-8.2) g/dL Albumin 3.8 (3.5-5.0) g/dL Coronavirus (PCR) (Not Detectd) - EKG Data -: EKG Interpreted by Me EKG Comments: 12-lead Electrocardiogram Interpretation Note EKG was reviewed and interpreted by myself. 12-lead ECG performed at 1829 is interpreted by me as revealing normal sinus rhythm at a rate of 74 beats per minute. [place] is normal. [place] interval is 134 ms, QRS duration is 92 ms, QTc is 450 ms.. There were no ST or T wave abnormalities to suggest myocardial ischemia or injury. R wave progression across the precordium was satisfactory. By my interpretation this EKG is non-diagnostic for acute ischemia. Disposition Clinical Impression: Pneumonia due to COVID-19 virus, Dehydration, Febrile illness, Acute respiratory failure with hypoxia, Hyponatremia Disposition: ADMITTED IP TO THIS HOSP Condition: Serious
[2020-12-19] MEDS: LEVOTHYROXINE 125 MCG TAB PO SCH (05:58)
[2020-12-19 07:52] LABS: African American GFR (CKD) 83 (>60 ml/min/1.73 sqM); Anion Gap 8 mmol/L; Blood Urea Nitrogen 17 mg/dL (7-17); Calcium 8.6 mg/dL (8.4-10.2); Carbon Dioxide 23 mmol/L (22-30); Chloride 102 mmol/L (98-107); Glucose 162 mg/dL (74-99); Non-African American GFR(CKD) 72 (>60 ml/min/1.73 sqM); Potassium 4.2 mmol/L (3.5-5.1); Sodium 133 mmol/L (137-145)
[2020-12-19 08:18] LABS: Basophils % (A) 0 %; Eosinophils % (A) 0 %; HCT 42.4 % (34.0-46.0); HGB 14.4 gm/dL (11.4-16.0); Lymphocytes # (A) 0.9 k/uL (1.0-4.8); Lymphocytes % (A) 26 %; MCH 30.4 pg (25.0-35.0); MCHC 33.9 g/dL (31.0-37.0); MCV 89.8 fL (80.0-100.0); Mean Platelet Volume 9.5; Monocytes # (A) 0.2 k/uL (0-1.0); Monocytes % (A) 7 %; Neutrophils # (A) 2.4 k/uL (1.3-7.7); Neutrophils % (A) 66 %; Platelet Count 142 k/uL (150-450); RBC 4.72 m/uL (3.80-5.40); RDW 13.5 % (11.5-15.5); WBC 3.6 k/uL (3.8-10.6)
[2020-12-19] MEDS: FUROSEMIDE 20 MG TAB PO SCH (08:18)
[2020-12-19] MEDS: PANTOPRAZOLE 40 MG TABLET PO SCH (08:18)
[2020-12-19] MEDS: ENOXAPARIN 40 MG/0.4 ML SYRINGE SQ SCH (08:18)
[2020-12-19] MEDS: ALBUTEROL HFA INHALER INHALATION PRN ×3 (09:08→20:33)
[2020-12-19] MEDS: ZINC SULFATE 220 MG CAP PO SCH (11:43)
[2020-12-19] MEDS: dexAMETHasone 2 MG TAB PO SCH (11:43)
[2020-12-19] MEDS: ASCORBIC ACID 500 MG TAB PO SCH ×2 (11:44→22:05)
[2020-12-19] MEDS: CHOLECALCIFEROL 25 MCG (1000 IU) TABLET PO SCH (11:44)
--- NOTE | 2020-12-19 12:27 | P.CNPUL ---
History of Present Illness Consult date: 12/19/20 Requesting physician: Ilir Cornell Reason for consult: dyspnea, hypoxemia, pneumonia, abnormal CXR/CT Chief complaint: Shortness of breath, nausea, vomiting, COVID-19 pneumonia History of present illness: 70-year-old white female patient with past medical history of chronic bronchial asthma, nonspecified, obstructive sleep apnea not on CPAP, hypertension, hyperlipidemia, previous episodes of pneumonia, depression, who presented to the emergency department on 12/18/2020 for evaluation of worsening shortness of breath, nausea and vomiting for the past 3-4 days. Patient tested positive for COVID-19. She also reports being extremely tired. She is not vaccinated for COVID-19. No completes of chest pain, no headaches. He has been having nonbilious vomiting. No hematemesis, no diarrhea. No abdominal pain. Patient was found to be hypoxic in the emergency department, was placed on supplemental oxygen. Her chest x-ray showed hyperinflation suggesting COPD, and possibility of chronic interstitial lung disease or interstitial pneumonitis and bronchitis. Her CBC was within normal limits, d-dimer was 0.52, sodium is 1:30, potassium 3.9, chloride is 90, CO2 is 21, BUN is 15, creatinine 0.8, ALT was 46, AST and alkaline phosphatase was within normal limits, LDH was 728, CRP was 4.1. She was started on Decadron in the emergency department, and she was given an additional dose of 10 mg, she was also started on prophylactic dose of Lovenox 40 mg and we were asked to see the patient in evaluation for shortness of breath and hypoxic respiratory failure related to COVID-19 pneumonia Review of Systems All systems: negative Constitutional: Denies chills, Denies fever Eyes: denies blurred vision, denies pain Ears, nose, mouth and throat: Denies headache, Denies sore throat Cardiovascular: Denies chest pain, Denies shortness of breath Respiratory: Reports dyspnea, Denies cough Gastrointestinal: Denies abdominal pain, Denies diarrhea, Denies nausea, Denies vomiting Genitourinary: Denies dysuria, Denies hematuria Musculoskeletal: Denies myalgias Integumentary: Denies pruritus, Denies rash Neurological: Denies numbness, Denies weakness Psychiatric: Denies anxiety, Denies depression Endocrine: Denies fatigue, Denies weight change Past Medical History Past Medical History: Asthma, GERD/Reflux, Hyperlipidemia, Hypertension, Osteoarthritis (OA), Sleep Apnea/CPAP/BIPAP Additional Past Medical History / Comment(s): CHRONIC BRONCHIAL ASTHMA, NO C- PAP, OCCASIONAL PALPITATIONS, HOSPITALIZED AT [facility] FOR PNEUMONIA, DEHYDRATION , UTI & EPISODE OF A-FIB., HX OF BLOOD IN STOOL., STATES CONSTIPATION NOW., STATES FORGETFUL, OCC. 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 History of Any Multi-Drug Resistant Organisms: None Reported Past Surgical History: Cholecystectomy, Hysterectomy Additional Past Surgical History / Comment(s): fatty tissue removed under left breast,bronchoscopy Past Anesthesia/Blood Transfusion Reactions: No Reported Reaction Additional Past Anesthesia/Blood Transfusion Reaction / Comment(s): . Past Psychological History: Depression Past Alcohol Use History: None Reported Past Drug Use History: None Reported - Past Family History Daughter(s) Family Medical History: Cancer Additional Family Medical History / Comment(s): form of leukemia Mother Family Medical History: Cancer Additional Family Medical History / Comment(s): lung Father Family Medical History: Cancer Additional Family Medical History / Comment(s): lung Medications and Allergies Home Medications Medication Instructions Recorded Confirmed Type Furosemide [Lasix] 20 mg PO DAILY 04/04/15 12/18/20 History Levothyroxine Sodium [Synthroid] 125 mcg PO DAILY 04/04/15 12/18/20 History Nitroglycerin Sl Tabs [Nitrostat] 0.4 mg SUBLINGUAL Q5M PRN 04/17/18 12/18/20 History Pantoprazole Sodium 40 mg PO DAILY 04/17/18 12/18/20 History Venlafaxine HCl ER [Effexor XR] 75 mg PO HS 04/17/18 12/18/20 History Theophylline Anhydrous 600 mg PO HS 05/11/18 12/18/20 History [Theophylline] Atenolol [Tenormin] 50 mg PO DAILY 12/18/20 12/18/20 History Calcium Carbonate [Calcium] 600 mg PO DAILY 12/18/20 12/18/20 History Cholecalciferol [Vitamin D3 (25 50 mcg PO DAILY 12/18/20 12/18/20 History Mcg = 1000 Iu)] Magnesium Oxide [Magox 400] 400 mg PO DAILY 12/18/20 12/18/20 History Multivitamins, Thera [Multivitamin 1 tab PO DAILY 12/18/20 12/18/20 History (formulary)] [place]-3 Fatty Acids [[place]-3] 1,000 mg PO DAILY 12/18/20 12/18/20 History allopurinoL [Zyloprim] 300 mg PO DAILY@1200 12/18/20 12/18/20 History Allergies Allergy/AdvReac Type Severity Reaction Status Date / Time amlodipine [From [facility]] Allergy Unknown Swelling Verified 12/18/20 16:25 IN legs and feet Physical Exam Vitals: Vital Signs Temp Pulse Pulse Resp BP BP Pulse Ox 12/19/20 10:09 98.4 F 60 17 138/80 93 L 12/19/20 08:06 97.8 F 58 L 17 150/78 94 L 12/19/20 01:40 98.2 F 61 16 133/69 94 L 12/18/20 22:55 98.7 F 75 16 147/79 93 L 12/18/20 22:33 18 12/18/20 21:00 98.6 F 12/18/20 19:25 71 18 140/71 93 L 12/18/20 16:22 101.9 F H 74 20 131/78 91 L Intake and Output 12/18/20 12/19/20 12/19/20 22:59 06:59 14:59 Other: Voiding Method Toilet Weight 86.183 kg GENERAL EXAM: Alert, very pleasant, 62-year-old white female, on 2 L of oxygen with pulse ox of 93-94%, comfortable in no apparent distress. HEAD: Normocephalic/atraumatic. EYES: Normal reaction of pupils, equal size. Conjunctiva pink, sclera white. NOSE: Clear with pink turbinates. THROAT: No erythema or exudates. NECK: No masses, no JVD, no thyroid enlargement, no adenopathy. CHEST: No chest wall deformity. Symmetrical expansion. LUNGS: Equal air entry with diffuse crackles CVS: Regular rate and rhythm, normal S1 and S2, no gallops, no murmurs, no rubs ABDOMEN: Soft, nontender. No hepatosplenomegaly, normal bowel sounds, no guarding or rigidity. EXTREMITIES: No clubbing, no edema, no cyanosis, 2+ pulses and upper and lower extremities. MUSCULOSKELETAL: Muscle strength and tone normal. SPINE: No scoliosis or deformity SKIN: No rashes CENTRAL NERVOUS SYSTEM: Alert and oriented -3. No focal deficits, tone is normal in all 4 extremities. PSYCHIATRIC: Alert and oriented -3. Appropriate affect. Intact judgment and insight. Results - Laboratory Findings CBC and BMP: 12/19/20 07:14 12/19/20 07:14 PT/INR, D-dimer PT 10.0 sec (9.0-12.0) 12/18/20 18:01 INR 0.9 (<1.2) 12/18/20 18:01 D-Dimer 0.52 mg/L FEU (<0.60) 12/18/20 18:01 Abnormal lab findings: Abnormal Labs 12/18/20 12/18/20 12/19/20 16:26 18:01 07:14 WBC 3.6 L Plt Count 142 L Lymphocytes # 0.9 L Sodium 130 L Carbon Dioxide 21 L Glucose 117 H AST 46 H Lactate Dehydrogenase 728 H C-Reactive Protein 4.1 H Coronavirus (PCR) Detected A 12/19/20 07:14 WBC Plt Count Lymphocytes # Sodium 133 L Carbon Dioxide Glucose 162 H AST Lactate Dehydrogenase C-Reactive Protein Coronavirus (PCR) - Diagnostic Findings Chest x-ray: report reviewed, image reviewed Additional studies: EKG reviewed Assessment and Plan Plan: Assessment: #1. Acute hypoxic respiratory failure related to acute COVID-19 pneumonia, with onset of symptoms 3-4 days prior to presentation. Patient is non-vaccinated for COVID-19, he will be started on Remdesivir on 12/19/2020 #2. Chronic bronchial asthma, mild intermittent #3. Obstructive sleep apnea not on CPAP #4. Obesity with BMI 32.6 kg/m #5. Previous episode of atrial fibrillation in the past, currently in sinus mechanism #6. Remote history of chronic tobacco dependency #7. Hypothyroidism Plan: We'll start the patient and Remdesivir Procalcitonin level and follow-up inflammatory markers and d-dimer Continue Decadron 6 mg daily Continue albuterol Continue prophylactic Lovenox We'll adjust the dose daily based on d-dimer and patient's clinical condition We'll continue to follow I performed a history & physical examination of the patient and discussed their management with my nurse practitioner, Marilynn Saleem. I reviewed the nurse practitioner's note and agree with the documented findings and plan of care. Lung sounds are positive for diminished breath sounds throughout the lung grover. The findings and the impression was discussed with the patient. I attest to the documentation by the nurse practitioner. Time with Patient: Greater than 30
[2020-12-19] MEDS ORDERED: REMDESIVIR 200 MG in SODIUM CHLORIDE 0.9% 250 ML IVPB ONE (13:00)
[2020-12-19] MEDS: VENLAFAXINE HCL ER 75 MG CAP PO SCH (22:05)
[2020-12-19] MEDS: atenoloL 25 MG TAB PO SCH (22:05)
[2020-12-19] MEDS: ATORVASTATIN 20 MG TAB PO SCH (22:05)
--- NOTE | 2020-12-20 00:18 | P.CONS ---
History of Present Illness - Reason for Consult Consult date: 12/19/20 covid 19 Requesting physician: Ilir Cornell - Chief Complaint vomiting , shortness of breath x 4 days - History of Present Illness History of present illness : Patient is 70-year-old female presenting to the hospital last night for evaluation of increasing shortness of breath nausea vomiting symptom has been going on for the last 3 to 4 days before presentation to the hospital patient denies having any any headache or URI symptom, has been complaining of nausea vomiting unable to keep anything down no abdominal pain and did have some diarrhea also complaining of shortness of breath on minimal exertion in order rest patient also have a cough which is a mild to moderate intensity but not been up any sputum no pleuritic chest pain on presentation to the hospital the patient did have fever 101.9 degree form height patient did have hypoxia with O2 sats of 91% on room air currently 92% on 2 L nasal cannula patient did have a normal white count with lymphopenia creatinine was normal AST was mildly elevated LDH CRP was elevated as well as procalcitonin cord ischemia positive patient did have a chest x-ray COPD interstitial lung disease interstitial pneumonitis patient has been admitted to hospital infectious was consulted for further management Review of system: CONSTITUTIONAL: Positive for weakness along with the fever. EYES: No complaint. ENT: No complaint. RESPIRATORY: As per history of present illness. CARDIOVASCULAR: No complaint. GENITOURINARY: No complaint. GASTROINTESTINAL: As per history of present illness. MUSCULOSKELETAL: No complaint. INTEGUMENTARY: No complaint. PSYCHOLOGIC: No complaint. ENDOCRINE: No complaint. NEUROLOGIC: No complaint. Past medical history : Reviewed, documented below Past surgical history : Reviewed, documented below Social history: Reviewed, documented below Medications: Reviewed, as documented below EXAMINATION: Vital sigans= Reviewed and documented below GENERAL DESCRIPTION: Elderly female lying in bed, no distress. No tachypnea or accessory muscle of respiration use. HEENT: Shows Pallor , no scleral icterus. Oral mucous membrane is dry. NECK: Trachea central, no thyromegaly. LUNGS: Unlabored breathing. Coarse breath sounds bilaterally. No wheeze or crackle. HEART: S1, S2, regular rate and rhythm. ABDOMEN: Soft, no tenderness , guarding or rigidity EXTREMITIES: No edema of feet. SKIN: No rash, no masses palpable. NEUROLOGICAL: The patient is awake, alert, oriented x3, mood and affect normal. LABS AND RADIOLOGY: Reviewed results see below Assessment : Patient presented to hospital with acute respiratory failure in this patient who did have hypoxemia fever secondary to COVID-19 her pneumonia in this patient symptom onset has been 3 to 4 days and is within therapeutic window for remdesivir Plan: 1-remdesivir per protocol 5-day course of therapy 2-dexamethasone Lovenox zinc and ascorbic acid 3-droplet isolation and respiratory support We will follow on clinical condition and cultures to further adjust medication if needed Thank you for this consultation we will follow the patient along with you Past Medical History Past Medical History: Asthma, GERD/Reflux, Hyperlipidemia, Hypertension, Osteoarthritis (OA), Sleep Apnea/CPAP/BIPAP Additional Past Medical History / Comment(s): CHRONIC BRONCHIAL ASTHMA, NO C- PAP, OCCASIONAL PALPITATIONS, HOSPITALIZED AT [facility] FOR PNEUMONIA, DEHYDRATION , U TI & EPISODE OF A-FIB., HX OF BLOOD IN STOOL., STATES CONSTIPATION NOW., STATES FORGETFUL, OCC. 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 History of Any Multi-Drug Resistant Organisms: None Reported Past Surgical History: Cholecystectomy, Hysterectomy Additional Past Surgical History / Comment(s): fatty tissue removed under left breast,bronchoscopy Past Anesthesia/Blood Transfusion Reactions: No Reported Reaction Additional Past Anesthesia/Blood Transfusion Reaction / Comm: . Past Psychological History: Depression Past Alcohol Use History: None Reported Past Drug Use History: None Reported - Past Family History Daughter(s) Family Medical History: Cancer Additional Family Medical History / Comment(s): form of leukemia Mother Family Medical History: Cancer Additional Family Medical History / Comment(s): lung Father Family Medical History: Cancer Additional Family Medical History / Comment(s): lung Medications and Allergies Home Medications Medication Instructions Recorded Confirmed Type Furosemide [Lasix] 20 mg PO DAILY 04/04/15 12/18/20 History Levothyroxine Sodium [Synthroid] 125 mcg PO DAILY 04/04/15 12/18/20 History Nitroglycerin Sl Tabs [Nitrostat] 0.4 mg SUBLINGUAL Q5M PRN 04/17/18 12/18/20 History Pantoprazole Sodium 40 mg PO DAILY 04/17/18 12/18/20 History Venlafaxine HCl ER [Effexor XR] 75 mg PO HS 04/17/18 12/18/20 History Theophylline Anhydrous 600 mg PO HS 05/11/18 12/18/20 History [Theophylline] Atenolol [Tenormin] 50 mg PO DAILY 12/18/20 12/18/20 History Calcium Carbonate [Calcium] 600 mg PO DAILY 12/18/20 12/18/20 History Cholecalciferol [Vitamin D3 (25 50 mcg PO DAILY 12/18/20 12/18/20 History Mcg = 1000 Iu)] Magnesium Oxide [Magox 400] 400 mg PO DAILY 12/18/20 12/18/20 History Multivitamins, Thera [Multivitamin 1 tab PO DAILY 12/18/20 12/18/20 History (formulary)] [place]-3 Fatty Acids [[place]-3] 1,000 mg PO DAILY 12/18/20 12/18/20 History allopurinoL [Zyloprim] 300 mg PO DAILY@1200 12/18/20 12/18/20 History Allergies Allergy/AdvReac Type Severity Reaction Status Date / Time amlodipine [From [facility]] Allergy Unknown Swelling Verified 12/18/20 16:25 IN legs and feet Physical Exam Vitals: Vital Signs Temp Pulse Pulse Resp BP BP Pulse Ox 12/19/20 10:09 98.4 F 60 17 138/80 93 L 12/19/20 08:06 97.8 F 58 L 17 150/78 94 L 12/19/20 01:40 98.2 F 61 16 133/69 94 L 12/18/20 22:55 98.7 F 75 16 147/79 93 L 12/18/20 22:33 18 12/18/20 21:00 98.6 F 12/18/20 19:25 71 18 140/71 93 L 12/18/20 16:22 101.9 F H 74 20 131/78 91 L Intake and Output 12/18/20 12/19/20 12/19/20 22:59 06:59 14:59 Other: Voiding Method Toilet Weight 86.183 kg Results CBC & Chem 7: 12/19/20 07:14 12/19/20 07:14 Labs: Abnormal Lab Results - Last 24 Hours (Table) 12/18/20 12/18/20 12/19/20 Range/Units 16:26 18:01 07:14 WBC 3.6 L (3.8-10.6) k/uL Plt Count 142 L (150-450) k/uL Lymphocytes # 0.9 L (1.0-4.8) k/uL Sodium 130 L (137-145) mmol/L Carbon Dioxide 21 L (22-30) mmol/L Glucose 117 H (74-99) mg/dL AST 46 H (14-36) U/L Lactate Dehydrogenase 728 H (313-618) U/L C-Reactive Protein 4.1 H (<1.0) mg/dL Coronavirus (PCR) Detected A (Not Detectd) 12/19/20 Range/Units 07:14 WBC (3.8-10.6) k/uL Plt Count (150-450) k/uL Lymphocytes # (1.0-4.8) k/uL Sodium 133 L (137-145) mmol/L Carbon Dioxide (22-30) mmol/L Glucose 162 H (74-99) mg/dL AST (14-36) U/L Lactate Dehydrogenase (313-618) U/L C-Reactive Protein (<1.0) mg/dL Coronavirus (PCR) (Not Detectd)
[2020-12-20] MEDS: LEVOTHYROXINE 125 MCG TAB PO SCH (06:16)
[2020-12-20] MEDS: ALBUTEROL HFA INHALER INHALATION PRN ×3 (08:09→20:01)
[2020-12-20] MEDS: FUROSEMIDE 20 MG TAB PO SCH (08:42)
[2020-12-20] MEDS: PANTOPRAZOLE 40 MG TABLET PO SCH (08:42)
[2020-12-20] MEDS: CHOLECALCIFEROL 25 MCG (1000 IU) TABLET PO SCH (08:42)
[2020-12-20] MEDS: ZINC SULFATE 220 MG CAP PO SCH (08:42)
[2020-12-20] MEDS: ASCORBIC ACID 500 MG TAB PO SCH ×2 (08:42→21:43)
[2020-12-20] MEDS: dexAMETHasone 2 MG TAB PO SCH (08:42)
[2020-12-20] MEDS: ENOXAPARIN 40 MG/0.4 ML SYRINGE SQ SCH (08:43)
--- NOTE | 2020-12-20 10:36 | P.HPIM ---
History of Present Illness H&P Date: 12/19/20 Chief Complaint: Shortness of breath Patient is a 70 and female with a known history of obstructive sleep apnea, chronic bronchial last month, GERD, hypertension, hyperlipidemia, osteoarthritis, hypothyroidism and depression presents to ER with complaints of worsening shortness of breath and generalized weakness and fatigue. Patient was also having nausea and vomiting for the past 3-4 days mainly nonbilious. Presented to ER due to worsening shortness of breath. Next and no complaints of chest pain. Denied any headache or dizziness or lightheadedness. Patient was f ebrile with T-max of 101.9 on admission. Pulse ox was 91% on room air. Chest x-ray showed findings suggestive COPD. Correlate for chronic interstitial lung disease or interstitial pneumonitis. EKG showed normal sinus rhythm, low- voltage QRS. Laboratory data showed sodium 1:30 potassium 3.8 chloride 98 bicarb is 21 BUN 15 and creatinine 0.8 to Ferritin 922, AST 46 ALT 26 alk phos 51 D is 7-8 and CRP 4.1 COVID-19 PCR detected. Review of Systems Constitutional: Patient does have fever, chills and generalized weakness and malaise.. Abdomen: Patient does have nausea. No episodes of vomiting. No abdominal pain or diarrhea.. Cardiovascular: Patient denies any chest pain or short of breath no palpitations. Respiratory: Patient does have cough without sputum production and No shortness of breath Neurologic: Patient denied any numbness or tingling headache. Musculoskeletal: Patient denies any complaints of joint swelling or deformity. Skin: Negative Psychiatric: Negative Endocrine: No heat or cold intolerance. No recent weight gain. Genitourinary: No dysuria or hematuria. All other 14 point ROS negative except the above Past Medical History Past Medical History: Asthma, GERD/Reflux, Hyperlipidemia, Hypertension, Osteoarthritis (OA), Sleep Apnea/CPAP/BIPAP Additional Past Medical History / Comment(s): CHRONIC BRONCHIAL ASTHMA, NO C- PAP, OCCASIONAL PALPITATIONS, HOSPITALIZED AT [facility] FOR PNEUMONIA, DEHYDRATION , UTI & EPISODE OF A-FIB., HX OF BLOOD IN STOOL., STATES CONSTIPATION NOW., STATES FORGETFUL, OCC. 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 History of Any Multi-Drug Resistant Organisms: None Reported Past Surgical History: Cholecystectomy, Hysterectomy Additional Past Surgical History / Comment(s): fatty tissue removed under left breast,bronchoscopy Past Anesthesia/Blood Transfusion Reactions: No Reported Reaction Additional Past Anesthesia/Blood Transfusion Reaction / Comment(s): . Past Psychological History: Depression Past Alcohol Use History: None Reported Past Drug Use History: None Reported - Past Family History Daughter(s) Family Medical History: Cancer Additional Family Medical History / Comment(s): form of leukemia Mother Family Medical History: Cancer Additional Family Medical History / Comment(s): lung Father Family Medical History: Cancer Additional Family Medical History / Comment(s): lung Medications and Allergies Home Medications Medication Instructions Recorded Confirmed Type Furosemide [Lasix] 20 mg PO DAILY 04/04/15 12/18/20 History Levothyroxine Sodium [Synthroid] 125 mcg PO DAILY 04/04/15 12/18/20 History Nitroglycerin Sl Tabs [Nitrostat] 0.4 mg SUBLINGUAL Q5M PRN 04/17/18 12/18/20 History Pantoprazole Sodium 40 mg PO DAILY 04/17/18 12/18/20 History Venlafaxine HCl ER [Effexor XR] 75 mg PO HS 04/17/18 12/18/20 History Theophylline Anhydrous 600 mg PO HS 05/11/18 12/18/20 History [Theophylline] Atenolol [Tenormin] 50 mg PO DAILY 12/18/20 12/18/20 History Calcium Carbonate [Calcium] 600 mg PO DAILY 12/18/20 12/18/20 History Cholecalciferol [Vitamin D3 (25 50 mcg PO DAILY 12/18/20 12/18/20 History Mcg = 1000 Iu)] Magnesium Oxide [Magox 400] 400 mg PO DAILY 12/18/20 12/18/20 History Multivitamins, Thera [Multivitamin 1 tab PO DAILY 12/18/20 12/18/20 History (formulary)] [place]-3 Fatty Acids [[place]-3] 1,000 mg PO DAILY 12/18/20 12/18/20 History allopurinoL [Zyloprim] 300 mg PO DAILY@1200 12/18/20 12/18/20 History Allergies Allergy/AdvReac Type Severity Reaction Status Date / Time amlodipine [From [facility]] Allergy Unknown Swelling Verified 12/18/20 16:25 IN legs and feet Physical Exam Vitals: Vital Signs Temp Pulse Pulse Resp BP BP Pulse Ox 12/19/20 10:09 98.4 F 60 17 138/80 93 L 12/19/20 08:06 97.8 F 58 L 17 150/78 94 L 12/19/20 01:40 98.2 F 61 16 133/69 94 L 12/18/20 22:55 98.7 F 75 16 147/79 93 L 12/18/20 22:33 18 12/18/20 21:00 98.6 F 12/18/20 19:25 71 18 140/71 93 L 12/18/20 16:22 101.9 F H 74 20 131/78 91 L Intake and Output 12/18/20 12/19/20 12/19/20 22:59 06:59 14:59 Other: Voiding Method Toilet Weight 86.183 kg PHYSICAL EXAMINATION: Patient is lying in the bed comfortably, no acute distress, awake alert and oriented.. HEENT: Normocephalic. Neck is supple. Pupils reactive. Nostrils clear. Oral cavity is moist. Neck reveals no JVD, carotid bruits, or thyromegaly. CHEST EXAMINATION: Trachea is central. Symmetrical expansion. Scattered coarse sounds. No wheezing or rhonchi.. CARDIAC: Normal S1, S2 with no gallops. No murmurs ABDOMEN: Soft. Bowel sounds normal. No organomegaly. No abdominal bruits. Extremities: reveal no edema. No clubbing or cyanosis Neurologically awake, alert, oriented x3 with well-coordinated movements. No focal deficits noted Skin: No rash or skin lesions. Psychiatric: Coperative. Nonsuicidal Musculoskeletal: No joint swelling or deformity. Normal range of motion. Results CBC & Chem 7: 12/19/20 07:14 12/19/20 07:14 Labs: Abnormal Lab Results - Last 24 Hours (Table) 12/18/20 12/18/20 12/19/20 Range/Units 16:26 18:01 07:14 WBC 3.6 L (3.8-10.6) k/uL Plt Count 142 L (150-450) k/uL Lymphocytes # 0.9 L (1.0-4.8) k/uL Sodium 130 L (137-145) mmol/L Carbon Dioxide 21 L (22-30) mmol/L Glucose 117 H (74-99) mg/dL AST 46 H (14-36) U/L Lactate Dehydrogenase 728 H (313-618) U/L C-Reactive Protein 4.1 H (<1.0) mg/dL Coronavirus (PCR) Detected A (Not Detectd) 12/19/20 Range/Units 07:14 WBC (3.8-10.6) k/uL Plt Count (150-450) k/uL Lymphocytes # (1.0-4.8) k/uL Sodium 133 L (137-145) mmol/L Carbon Dioxide (22-30) mmol/L Glucose 162 H (74-99) mg/dL AST (14-36) U/L Lactate Dehydrogenase (313-618) U/L C-Reactive Protein (<1.0) mg/dL Coronavirus (PCR) (Not Detectd) Thrombosis Risk Factor Assmnt - DVT/VTE Prophylaxis DVT/VTE Prophylaxis: Pharmacologic Prophylaxis ordered - Choose All That Apply Each Factor Represents 1 point: Obesity (BMI >25), Serious lung disease incl. pneumonia (< 1month) Each Risk Factor Represents 2 Points: Age 61-74 years Thrombosis Risk Factor Assessment Total Risk Factor Score: 4 Thrombosis Risk Factor Assessment Level: Moderate Risk Assessment and Plan Assessment: Acute COVID-19 pneumonia. Elevated inflammatory markers secondary to COVID-19 infection Obstructive sleep apnea not on CPAP at home Chronic bronchial asthma Hypothyroidism Hypertension Hyperlipidemia Osteoarthritis GERD History O palpitations Depression DVT prophylaxis. Plan: Patient will be continued on dexamethasone and Lovenox subcu. Patient qualifies for them dissuade course. Pulmonary and ID is on board. Next and continue with albuterol inhalation as needed and follow up closely. Contact and droplet precautions. Time with Patient: Greater than 30
[2020-12-20] MEDS: REMDESIVIR 100 MG in SODIUM CHLORIDE 0.9% 250 ML IVPB SCH (12:17)
--- NOTE | 2020-12-20 13:22 | P.PN ---
Subjective Progress Note Date: 12/20/20 70-year-old white female patient with past medical history of chronic bronchial asthma, nonspecified, obstructive sleep apnea not on CPAP, hypertension, hyperlipidemia, previous episodes of pneumonia, depression, who presented to the emergency department on 12/18/2020 for evaluation of worsening shortness of breath, nausea and vomiting for the past 3-4 days. Patient tested positive for COVID-19. She also reports being extremely tired. She is not vaccinated for COVID-19. No completes of chest pain, no headaches. He has been having nonbilious vomiting. No hematemesis, no diarrhea. No abdominal pain. Patient was found to be hypoxic in the emergency department, was placed on supplemental oxygen. Her chest x-ray showed hyperinflation suggesting COPD, and possibility of chronic interstitial lung disease or interstitial pneumonitis and bronchitis. Her CBC was within normal limits, d-dimer was 0.52, sodium is 1:30, potassium 3.9, chloride is 90, CO2 is 21, BUN is 15, creatinine 0.8, ALT was 46, AST and alkaline phosphatase was within normal limits, LDH was 728, CRP was 4.1. She was started on Decadron in the emergency department, and she was given an additional dose of 10 mg, she was also started on prophylactic dose of Lovenox 40 mg and we were asked to see the patient in evaluation for shortness of breath and hypoxic respiratory failure related to COVID-19 pneumonia On today's evaluation on 12/20/2020 patient seen in follow-up medical surgical floor. She is awake and alert, in no acute distress, she is currently on 2 L of oxygen her pulse ox is 93%, low-grade fever this morning, fever pattern has improved, currently down to 99.5, patient appears to be breathing quite co mfortably, she is sitting up in the recliner, she is eating lunch although her appetite is not the best. She states the nausea and vomiting have significantly improved, she is tolerating oral intake, no abdominal pain, no chest discomfort, she does get some shortness of breath with ambulation to the bathroom. And she is on Remdesivir, today is day 2 of treatment, she is on steroids in the form of Decadron 6 mg daily, and prophylactic dose of Lovenox. Today's d-dimer is 0.51, within normal limits, LDH and CRP are pending. Objective - Vital Signs Vital signs: Vital Signs Temp 99.5 F 12/20/20 10:06 Pulse 69 12/20/20 10:06 Resp 16 12/20/20 10:06 BP 132/75 12/20/20 10:06 Pulse Ox 93 L 12/20/20 10:06 Intake & Output 12/19/20 12/20/20 12/20/20 18:59 06:59 18:59 Output Total 1 Balance -1 Output: Stool 1 Other: Voiding Method Toilet # Voids 3 - Exam GENERAL EXAM: Alert, a pleasant, 70-year-old white female, on 2 L of oxygen and the pulse ox of 93%, comfortable in no apparent distress. HEAD: Normocephalic/atraumatic. EYES: Normal reaction of pupils, equal size. Conjunctiva pink, sclera white. NOSE: Clear with pink turbinates. THROAT: No erythema or exudates. NECK: No masses, no JVD, no thyroid enlargement, no adenopathy. CHEST: No chest wall deformity. Symmetrical expansion. LUNGS: Equal air entry with mild crackles at the bases, left greater than right CVS: Regular rate and rhythm, normal S1 and S2, no gallops, no murmurs, no rubs ABDOMEN: Soft, nontender. No hepatosplenomegaly, normal bowel sounds, no guardi ng or rigidity. EXTREMITIES: No clubbing, no edema, no cyanosis, 2+ pulses and upper and lower extremities. MUSCULOSKELETAL: Muscle strength and tone normal. SPINE: No scoliosis or deformity SKIN: No rashes CENTRAL NERVOUS SYSTEM: Alert and oriented -3. No focal deficits, tone is normal in all 4 extremities. PSYCHIATRIC: Alert and oriented -3. Appropriate affect. Intact judgment and insight. - Labs CBC & Chem 7: 12/19/20 07:14 12/19/20 07:14 Labs: Abnormal Lab Results - Last 24 Hours (Table) 12/18/20 12/18/20 Range/Units 18:01 18:01 Ferritin 922.0 H (10.0-291.0) ng/mL Procalcitonin 0.21 H (0.02-0.09) ng/mL Microbiology - Last 24 Hours (Table) 12/18/20 18:01 Blood Culture - Preliminary Blood No Growth after 24 hours 12/18/20 18:01 Blood Culture - Preliminary Blood No Growth after 24 hours Assessment and Plan Plan: Assessment: #1. Acute hypoxic respiratory failure related to acute COVID-19 pneumonia, with onset of symptoms 3-4 days prior to presentation. Patient is non-vaccinated for COVID-19, he will be started on Remdesivir on 12/19/2020 #2. Chronic bronchial asthma, mild intermittent #3. Obstructive sleep apnea not on CPAP #4. Obesity with BMI 32.6 kg/m #5. Previous episode of atrial fibrillation in the past, currently in sinus mechanism #6. Remote history of chronic tobacco dependency #7. Hypothyroidism Plan: Continue the Remdesivir, today is day 2 of treatment Continue Decadron 6 mg daily Continue albuterol Continue prophylactic Lovenox d-dimer is within normal limits, inflammatory markers are still pending for today Overall clinically her breathing has remained stable, and she still on the same 2 L of oxygen. Will continue to follow her clinical progress I performed a history & physical examination of the patient and discussed their management with my nurse practitioner, Marilynn Saleem. I reviewed the nurse practitioner's note and agree with the documented findings and plan of care. Lung sounds are positive for diminished breath sounds throughout the lung grover. The findings and the impression was discussed with the patient. I attest to the documentation by the nurse practitioner. Time with Patient: Less than 30
[2020-12-20 17:38] LABS: C Reactive Protein 2.1 mg/dL (0.00-0.80)
[2020-12-20] MEDS: ATORVASTATIN 20 MG TAB PO SCH (21:43)
[2020-12-20] MEDS: atenoloL 25 MG TAB PO SCH (21:43)
[2020-12-20] MEDS: VENLAFAXINE HCL ER 75 MG CAP PO SCH (21:43)
--- NOTE | 2020-12-21 06:43 | PN ---
PROGRESS NOTE DATE OF SERVICE: 12/20/2020 REASON FOR FOLLOWUP: COVID-19 pneumonia. INTERVAL HISTORY: Patient is afebrile. The patient is breathing more comfortably. Denies any chest pain. Did have a cough not bringing up any sputum. No nausea, vomiting. No abdominal pain. No diarrhea. PHYSICAL EXAMINATION: Blood pressure 132/69, pulse of 71, temperature 98.3. She is 94% on 3 L nasal cannula. General description is an elderly female lying in bed in no distress. Respiratory system: Unlabored breathing, decreased intensity of breath sounds. No wheeze. Heart S1, S2. Regular rate and rhythm. Abdomen soft, no tenderness. LABS: D-dimer is 0.51. DIAGNOSTIC IMPRESSION/PLAN: Patient with acute COVID-19 pneumonia in this patient who has shown some clinical improvement. The patient is currently on Remdesivir day number two in addition to the Lovenox, dexamethasone, zinc and ascorbic acid to continue along with respiratory support and monitor clinical course closely. MMODL / IJN: [id number] /
[2020-12-21] MEDS: ASCORBIC ACID 500 MG TAB PO SCH ×2 (08:43→20:41)
[2020-12-21] MEDS: LEVOTHYROXINE 125 MCG TAB PO SCH (08:43)
[2020-12-21] MEDS: PANTOPRAZOLE 40 MG TABLET PO SCH (08:43)
[2020-12-21] MEDS: ENOXAPARIN 40 MG/0.4 ML SYRINGE SQ SCH (08:43)
[2020-12-21] MEDS: dexAMETHasone 2 MG TAB PO SCH (08:43)
[2020-12-21] MEDS: FUROSEMIDE 20 MG TAB PO SCH (08:43)
[2020-12-21] MEDS: CHOLECALCIFEROL 25 MCG (1000 IU) TABLET PO SCH (08:43)
[2020-12-21] MEDS: ZINC SULFATE 220 MG CAP PO SCH (08:43)
--- NOTE | 2020-12-21 09:40 | XR ---
EXAMINATION TYPE: XR chest 1V portable DATE OF EXAM: 12/21/2020 CLINICAL HISTORY: Difficulty breathing progress study. COVID. TECHNIQUE: Single AP portable upright view of the chest is obtained. COMPARISON: Chest x-ray from 3 days earlier FINDINGS: New patchy opacities in the peripheral right mid lung and peripheral bilateral lower lungs . Cardiac silhouette size stable and within normal limits. Osseous structures are intact. Overlying E KG leads on current study. IMPRESSION: New peripheral right midlung and peripheral bibasilar opacities consistent with covid-19 infection are present.
[2020-12-21] MEDS: ALBUTEROL HFA INHALER INHALATION PRN ×3 (10:04→21:26)
[2020-12-21] MEDS: REMDESIVIR 100 MG in SODIUM CHLORIDE 0.9% 250 ML IVPB SCH (12:49)
--- NOTE | 2020-12-21 13:14 | P.PN ---
Subjective Progress Note Date: 12/21/20 70-year-old white female patient with past medical history of chronic bronchial asthma, nonspecified, obstructive sleep apnea not on CPAP, hypertension, hyperlipidemia, previous episodes of pneumonia, depression, who presented to the emergency department on 12/18/2020 for evaluation of worsening shortness of breath, nausea and vomiting for the past 3-4 days. Patient tested positive for COVID-19. She also reports being extremely tired. She is not vaccinated for COVID-19. No completes of chest pain, no headaches. He has been having nonbilious vomiting. No hematemesis, no diarrhea. No abdominal pain. Patient was found to be hypoxic in the emergency department, was placed on supplemental oxygen. Her chest x-ray showed hyperinflation suggesting COPD, and possibility of chronic interstitial lung disease or interstitial pneumonitis and bronchitis. Her CBC was within normal limits, d-dimer was 0.52, sodium is 1:30, potassium 3.9, chloride is 90, CO2 is 21, BUN is 15, creatinine 0.8, ALT was 46, AST and alkaline phosphatase was within normal limits, LDH was 728, CRP was 4.1. She was started on Decadron in the emergency department, and she was given an additional dose of 10 mg, she was also started on prophylactic dose of Lovenox 40 mg and we were asked to see the patient in evaluation for shortness of breath and hypoxic respiratory failure related to COVID-19 pneumonia On today's evaluation on 12/20/2020 patient seen in follow-up medical surgical floor. She is awake and alert, in no acute distress, she is currently on 2 L of oxygen her pulse ox is 93%, low-grade fever this morning, fever pattern has improved, currently down to 99.5, patient appears to be breathing quite co mfortably, she is sitting up in the recliner, she is eating lunch although her appetite is not the best. She states the nausea and vomiting have significantly improved, she is tolerating oral intake, no abdominal pain, no chest discomfort, she does get some shortness of breath with ambulation to the bathroom. And she is on Remdesivir, today is day 2 of treatment, she is on steroids in the form of Decadron 6 mg daily, and prophylactic dose of Lovenox. Today's d-dimer is 0.51, within normal limits, LDH and CRP are pending. On 12/21/2020 patient seen in follow-up on medical surgical floor, today's day 3 of Remdesivir, patient continues on Decadron, COVID-19 vitamins, she continues on prophylactic dose Lovenox. Today's chest x-ray shows new peripheral right midlung and peripheral basilar opacities consistent with COVID-19 infection. He denies any acute distress, occasional cough, no phlegm production, no complaints of chest discomfort. No new labs today, d-dimer, and inflammatory markers are pending. No nausea or vomiting. She is tolerating oral intake, she's had no acute events overnight. Objective - Vital Signs Vital signs: Vital Signs Temp 99.1 F 12/21/20 10:00 Pulse 54 L 12/21/20 10:00 Resp 19 12/21/20 10:00 BP 152/75 12/21/20 10:00 Pulse Ox 100 12/21/20 10:04 Intake & Output 12/20/20 12/21/20 12/21/20 18:59 06:59 18:59 Other: Voiding Method Toilet # Voids 4 - Exam GENERAL EXAM: Alert, a pleasant, 70-year-old white female, on 2 L of oxygen and the pulse ox of 93%, comfortable in no apparent distress. HEAD: Normocephalic/atraumatic. EYES: Normal reaction of pupils, equal size. Conjunctiva pink, sclera white. NOSE: Clear with pink turbinates. THROAT: No erythema or exudates. NECK: No masses, no JVD, no thyroid enlargement, no adenopathy. CHEST: No chest wall deformity. Symmetrical expansion. LUNGS: Equal air entry with mild crackles at the bases, left greater than right CVS: Regular rate and rhythm, normal S1 and S2, no gallops, no murmurs, no rubs ABDOMEN: Soft, nontender. No hepatosplenomegaly, normal bowel sounds, no guarding or rigidity. EXTREMITIES: No clubbing, no edema, no cyanosis, 2+ pulses and upper and lower extremities. MUSCULOSKELETAL: Muscle strength and tone normal. SPINE: No scoliosis or deformity SKIN: No rashes CENTRAL NERVOUS SYSTEM: Alert and oriented -3. No focal deficits, tone is normal in all 4 extremities. PSYCHIATRIC: Alert and oriented -3. Appropriate affect. Intact judgment and insight. - Labs CBC & Chem 7: 12/19/20 07:14 12/19/20 07:14 Labs: Abnormal Lab Results - Last 24 Hours (Table) 12/20/20 Range/Units 05:44 Lactate Dehydrogenase 266 H (120-246) U/L C-Reactive Protein 2.10 H (0.00-0.80) mg/dL Microbiology - Last 24 Hours (Table) 12/18/20 18:01 Blood Culture - Preliminary Blood No Growth after 48 hours 12/18/20 18:01 Blood Culture - Preliminary Blood No Growth after 48 hours Assessment and Plan Plan: Assessment: #1. Acute hypoxic respiratory failure related to acute COVID-19 pneumonia, with onset of symptoms 3-4 days prior to presentation. Patient is non-vaccinated for COVID-19, he will be started on Remdesivir on 12/19/2020 #2. Chronic bronchial asthma, mild intermittent #3. Obstructive sleep apnea not on CPAP #4. Obesity with BMI 32.6 kg/m #5. Previous episode of atrial fibrillation in the past, currently in sinus mechanism #6. Remote history of chronic tobacco dependency #7. Hypothyroidism Plan: Continue the Remdesivir, today is day 3 of treatment Today's chest x-ray has been reviewed showing bibasilar opacities Continue Decadron 6 mg daily Continue albuterol Follow d-dimer and inflammatory markers If remains stable, we'll consider discharge home in the next 24 hours Will continue to follow her clinical progress I performed a history & physical examination of the patient and discussed their management with my nurse practitioner, Marilynn Saleem. I reviewed the nurse practitioner's note and agree with the documented findings and plan of care. Lung sounds are positive for diminished breath sounds throughout the lung grover. The findings and the impression was discussed with the patient. I attest to the documentation by the nurse practitioner. Time with Patient: Less than 30
[2020-12-21] MEDS: atenoloL 25 MG TAB PO SCH (20:41)
[2020-12-21] MEDS: ATORVASTATIN 20 MG TAB PO SCH (20:41)
[2020-12-21] MEDS: VENLAFAXINE HCL ER 75 MG CAP PO SCH (20:41)
[2020-12-22] MEDS: LEVOTHYROXINE 125 MCG TAB PO SCH (05:58)
[2020-12-22 07:57] LABS: C Reactive Protein 2.3 mg/dL (<1.0)
[2020-12-22] MEDS: ENOXAPARIN 40 MG/0.4 ML SYRINGE SQ SCH (08:07)
[2020-12-22] MEDS: FUROSEMIDE 20 MG TAB PO SCH (08:07)
[2020-12-22] MEDS: dexAMETHasone 2 MG TAB PO SCH (08:07)
[2020-12-22] MEDS: ASCORBIC ACID 500 MG TAB PO SCH (08:08)
[2020-12-22] MEDS: PANTOPRAZOLE 40 MG TABLET PO SCH (08:08)
[2020-12-22] MEDS: CHOLECALCIFEROL 25 MCG (1000 IU) TABLET PO SCH (08:08)
[2020-12-22] MEDS: ZINC SULFATE 220 MG CAP PO SCH (08:08)
[2020-12-22] MEDS: ALBUTEROL HFA INHALER INHALATION PRN (08:56)
--- NOTE | 2020-12-22 11:18 | P.PN ---
Subjective Progress Note Date: 12/22/20 70-year-old white female patient with past medical history of chronic bronchial asthma, nonspecified, obstructive sleep apnea not on CPAP, hypertension, hyperlipidemia, previous episodes of pneumonia, depression, who presented to the emergency department on 12/18/2020 for evaluation of worsening shortness of breath, nausea and vomiting for the past 3-4 days. Patient tested positive for COVID-19. She also reports being extremely tired. She is not vaccinated for COVID-19. No completes of chest pain, no headaches. He has been having nonbilious vomiting. No hematemesis, no diarrhea. No abdominal pain. Patient was found to be hypoxic in the emergency department, was placed on supplemental oxygen. Her chest x-ray showed hyperinflation suggesting COPD, and possibility of chronic interstitial lung disease or interstitial pneumonitis and bronchitis. Her CBC was within normal limits, d-dimer was 0.52, sodium is 1:30, potassium 3.9, chloride is 90, CO2 is 21, BUN is 15, creatinine 0.8, ALT was 46, AST and alkaline phosphatase was within normal limits, LDH was 728, CRP was 4.1. She was started on Decadron in the emergency department, and she was given an additional dose of 10 mg, she was also started on prophylactic dose of Lovenox 40 mg and we were asked to see the patient in evaluation for shortness of breath and hypoxic respiratory failure related to COVID-19 pneumonia On today's evaluation on 12/20/2020 patient seen in follow-up medical surgical floor. She is awake and alert, in no acute distress, she is currently on 2 L of oxygen her pulse ox is 93%, low-grade fever this morning, fever pattern has improved, currently down to 99.5, patient appears to be breathing quite co mfortably, she is sitting up in the recliner, she is eating lunch although her appetite is not the best. She states the nausea and vomiting have significantly improved, she is tolerating oral intake, no abdominal pain, no chest discomfort, she does get some shortness of breath with ambulation to the bathroom. And she is on Remdesivir, today is day 2 of treatment, she is on steroids in the form of Decadron 6 mg daily, and prophylactic dose of Lovenox. Today's d-dimer is 0.51, within normal limits, LDH and CRP are pending. On 12/21/2020 patient seen in follow-up on medical surgical floor, today's day 3 of Remdesivir, patient continues on Decadron, COVID-19 vitamins, she continues on prophylactic dose Lovenox. Today's chest x-ray shows new peripheral right midlung and peripheral basilar opacities consistent with COVID-19 infection. He denies any acute distress, occasional cough, no phlegm production, no complaints of chest discomfort. No new labs today, d-dimer, and inflammatory markers are pending. No nausea or vomiting. She is tolerating oral intake, she's had no acute events overnight. On today's evaluation on 12/22/2020 patient is sitting up in a recliner, she is currently on 2 L of oxygen and the pulse ox of 93%, breathing fairly comfortably, she states overall her breathing is improved. Occasional cough, with clear phlegm production, no fever or chills, vital signs have been stable, she is on day 4 of her Remdesivir treatment, she remains on Decadron, and prophy lactic Lovenox. No new chest x-ray today. This morning she had a brief episode of chest discomfort that she described as possible heartburn. She states it has resolved spontaneously, lasted less than 5 minutes, with no radiation, we will obtain an EKG, vital signs has remained stable. Today's labs have been reviewed, d-dimer is improving and is down to 0.38, LDH is within normal limits at 563, and CRP is 2.3. Calcitonin level was negative at 0.21. Was cultures have been negative. No other acute events overnight, she is tolerating oral diet, no nausea vomiting or diarrhea. Objective - Vital Signs Vital signs: Vital Signs Temp 98.3 F 12/22/20 09:53 Pulse 56 L 12/22/20 11:11 Resp 20 12/22/20 11:11 BP 144/78 12/22/20 11:11 Pulse Ox 93 L 12/22/20 11:11 Intake & Output 12/21/20 12/22/20 12/22/20 18:59 06:59 18:59 Intake Total 120 Output Total 400 Balance -280 Intake: Oral 120 Output: Urine 400 Other: Voiding Method Toilet Toilet # Voids 1 - Exam GENERAL EXAM: Alert, a pleasant, 70-year-old white female, on 2 L of oxygen and the pulse ox of 93%, comfortable in no apparent distress. HEAD: Normocephalic/atraumatic. EYES: Normal reaction of pupils, equal size. Conjunctiva pink, sclera white. NOSE: Clear with pink turbinates. THROAT: No erythema or exudates. NECK: No masses, no JVD, no thyroid enlargement, no adenopathy. CHEST: No chest wall deformity. Symmetrical expansion. LUNGS: Equal air entry with mild crackles at the bases, left greater than right CVS: Regular rate and rhythm, normal S1 and S2, no gallops, no murmurs, no rubs ABDOMEN: Soft, nontender. No hepatosplenomegaly, normal bowel sounds, no guarding or rigidity. EXTREMITIES: No clubbing, no edema, no cyanosis, 2+ pulses and upper and lower extremities. MUSCULOSKELETAL: Muscle strength and tone normal. SPINE: No scoliosis or deformity SKIN: No rashes CENTRAL NERVOUS SYSTEM: Alert and oriented -3. No focal deficits, tone is normal in all 4 extremities. PSYCHIATRIC: Alert and oriented -3. Appropriate affect. Intact judgment and insight. - Labs CBC & Chem 7: 12/19/20 07:14 12/19/20 07:14 Labs: Abnormal Lab Results - Last 24 Hours (Table) 12/22/20 Range/Units 06:05 C-Reactive Protein 2.3 H (<1.0) mg/dL Microbiology - Last 24 Hours (Table) 12/18/20 18:01 Blood Culture - Preliminary Blood No Growth after 72 hours 12/18/20 18:01 Blood Culture - Preliminary Blood No Growth after 72 hours Assessment and Plan Plan: Assessment: #1. Acute hypoxic respiratory failure related to acute COVID-19 pneumonia, with onset of symptoms 3-4 days prior to presentation. Patient is non-vaccinated for COVID-19, he will be started on Remdesivir on 12/19/2020 #2. Chronic bronchial asthma, mild intermittent #3. Obstructive sleep apnea not on CPAP #4. Obesity with BMI 32.6 kg/m #5. Previous episode of atrial fibrillation in the past, currently in sinus mechanism #6. Remote history of chronic tobacco dependency #7. Hypothyroidism Plan: Continue the Remdesivir, today is day 4 of treatment Continue Decadron 6 mg daily Continue albuterol. Continue prophylactic Lovenox Patient had episode of chest pain this morning lasting less than 5 minutes, EKG is pending Breathing is stable, patient is still requiring some supplemental oxygen, but only at 2 L, with no increased oxygen demand We will obtain home oxygen evaluation, they've remained stable and continues to improve may consider for discharge home later on today or possibly tomorrow I performed a history & physical examination of the patient and discussed their management with my nurse practitioner, Marilynn Saleem. I reviewed the nurse practitioner's note and agree with the documented findings and plan of care. Lung sounds are positive for diminished breath sounds throughout the lung grover. The findings and the impression was discussed with the patient. I attest to the documentation by the nurse practitioner. Time with Patient: Less than 30
[2020-12-22] MEDS: REMDESIVIR 100 MG in SODIUM CHLORIDE 0.9% 250 ML IVPB SCH (13:25)
--- NOTE | 2020-12-22 18:17 | PN ---
PROGRESS NOTE DATE OF SERVICE: 12/22/2020 REASON FOR FOLLOWUP: COVID-19 pneumonia. INTERVAL HISTORY: The patient is afebrile. The patient is feeling better, breathing comfortably. She is currently down to 2 L nasal cannula. Denies any chest pain. No worsening cough. No abdominal pain or diarrhea. PHYSICAL EXAMINATION: Blood pressure is 151/71 with a pulse of 53, temperature 98. She is 94% on 2 L nasal cannula. General description is an elderly female lying in bed in no distress. Respiratory system: Unlabored breathing, clear to auscultation anteriorly. Heart S1, S2. Regular rate and rhythm. Abdomen soft, no tenderness. LAB: D-dimer is 0.38. DIAGNOSTIC IMPRESSION AND PLAN: Patient with acute COVID-19 pneumonia in this patient who seems to have shown overall clinical improvement. She is currently on Remdesivir to continue along with dexamethasone, Lovenox, zinc and ascorbic acid and respiratory support. MMODL / IJN: [id number] /
[2020-12-22] MEDS ORDERED: ASCORBIC ACID 500 MG TAB ONE (23:59)
[2020-12-22] MEDS ORDERED: ATORVASTATIN 20 MG TAB ONE (23:59)
[2020-12-22] MEDS ORDERED: VENLAFAXINE HCL ER 75 MG CAP PO ONE (23:59)
[2020-12-22] MEDS ORDERED: atenoloL 25 MG TAB ONE (23:59)
[2020-12-23] MEDS: LEVOTHYROXINE 125 MCG TAB PO SCH (05:54)
[2020-12-23] MEDS: ASCORBIC ACID 500 MG TAB PO SCH ×2 (06:34→08:32)
[2020-12-23] MEDS: ATORVASTATIN 20 MG TAB PO SCH (06:34)
[2020-12-23] MEDS: atenoloL 25 MG TAB PO SCH (06:34)
[2020-12-23] MEDS: VENLAFAXINE HCL ER 75 MG CAP PO SCH (06:34)
[2020-12-23] MEDS: CHOLECALCIFEROL 25 MCG (1000 IU) TABLET PO SCH (08:33)
[2020-12-23] MEDS: dexAMETHasone 2 MG TAB PO SCH (08:33)
[2020-12-23] MEDS: ENOXAPARIN 40 MG/0.4 ML SYRINGE SQ SCH (08:33)
[2020-12-23] MEDS: PANTOPRAZOLE 40 MG TABLET PO SCH (08:33)
[2020-12-23] MEDS: FUROSEMIDE 20 MG TAB PO SCH (08:33)
[2020-12-23] MEDS: ZINC SULFATE 220 MG CAP PO SCH (08:33)
[2020-12-23] MEDS: ALBUTEROL HFA INHALER INHALATION PRN (09:00)
[2020-12-23 10:17] VITALS: PULSE 56
[2020-12-23] MEDS: REMDESIVIR 100 MG in SODIUM CHLORIDE 0.9% 250 ML IVPB SCH (12:08)
--- NOTE | 2020-12-23 14:34 | P.PN ---
Subjective Progress Note Date: 12/23/20 70-year-old white female patient with past medical history of chronic bronchial asthma, nonspecified, obstructive sleep apnea not on CPAP, hypertension, hyperlipidemia, previous episodes of pneumonia, depression, who presented to the emergency department on 12/18/2020 for evaluation of worsening shortness of breath, nausea and vomiting for the past 3-4 days. Patient tested positive for COVID-19. She also reports being extremely tired. She is not vaccinated for COVID-19. No completes of chest pain, no headaches. He has been having nonbilious vomiting. No hematemesis, no diarrhea. No abdominal pain. Patient was found to be hypoxic in the emergency department, was placed on supplemental oxygen. Her chest x-ray showed hyperinflation suggesting COPD, and possibility of chronic interstitial lung disease or interstitial pneumonitis and bronchitis. Her CBC was within normal limits, d-dimer was 0.52, sodium is 1:30, potassium 3.9, chloride is 90, CO2 is 21, BUN is 15, creatinine 0.8, ALT was 46, AST and alkaline phosphatase was within normal limits, LDH was 728, CRP was 4.1. She was started on Decadron in the emergency department, and she was given an additional dose of 10 mg, she was also started on prophylactic dose of Lovenox 40 mg and we were asked to see the patient in evaluation for shortness of breath and hypoxic respiratory failure related to COVID-19 pneumonia On today's evaluation on 12/20/2020 patient seen in follow-up medical surgical floor. She is awake and alert, in no acute distress, she is currently on 2 L of oxygen her pulse ox is 93%, low-grade fever this morning, fever pattern has improved, currently down to 99.5, patient appears to be breathing quite co mfortably, she is sitting up in the recliner, she is eating lunch although her appetite is not the best. She states the nausea and vomiting have significantly improved, she is tolerating oral intake, no abdominal pain, no chest discomfort, she does get some shortness of breath with ambulation to the bathroom. And she is on Remdesivir, today is day 2 of treatment, she is on steroids in the form of Decadron 6 mg daily, and prophylactic dose of Lovenox. Today's d-dimer is 0.51, within normal limits, LDH and CRP are pending. On 12/21/2020 patient seen in follow-up on medical surgical floor, today's day 3 of Remdesivir, patient continues on Decadron, COVID-19 vitamins, she continues on prophylactic dose Lovenox. Today's chest x-ray shows new peripheral right midlung and peripheral basilar opacities consistent with COVID-19 infection. He denies any acute distress, occasional cough, no phlegm production, no complaints of chest discomfort. No new labs today, d-dimer, and inflammatory markers are pending. No nausea or vomiting. She is tolerating oral intake, she's had no acute events overnight. On today's evaluation on 12/22/2020 patient is sitting up in a recliner, she is currently on 2 L of oxygen and the pulse ox of 93%, breathing fairly comfortably, she states overall her breathing is improved. Occasional cough, with clear phlegm production, no fever or chills, vital signs have been stable, she is on day 4 of her Remdesivir treatment, she remains on Decadron, and prophy lactic Lovenox. No new chest x-ray today. This morning she had a brief episode of chest discomfort that she described as possible heartburn. She states it has resolved spontaneously, lasted less than 5 minutes, with no radiation, we will obtain an EKG, vital signs has remained stable. Today's labs have been reviewed, d-dimer is improving and is down to 0.38, LDH is within normal limits at 563, and CRP is 2.3. Calcitonin level was negative at 0.21. Was cultures have been negative. No other acute events overnight, she is tolerating oral diet, no nausea vomiting or diarrhea. The patient is seen today 12/23/2020 in follow-up on the regular medical floor. Currently sitting up in a chair at the bedside. Awake and alert in no acute distress. Currently maintaining O2 saturations in the 90s on 2 L/m per nasal cannula. This is day #5 of Remdesivir. She remains on Decadron, Lovenox, vit bustamante supplements. Objective - Vital Signs Vital signs: Vital Signs Temp 98 F 12/23/20 09:28 Pulse 56 L 12/23/20 09:28 Resp 17 12/23/20 09:28 BP 161/83 12/23/20 09:28 Pulse Ox 86 L 12/23/20 11:41 Intake & Output 12/22/20 12/23/20 12/23/20 18:59 06:59 18:59 Other: Voiding Method Toilet Toilet # Voids 2 1 - Exam GENERAL EXAM: Alert,pleasant 70-year-old female patient, on 2 L nasal cannula, comfortable in no apparent distress. HEAD: Normocephalic. EYES: Normal reaction of pupils, equal size. NOSE: Clear with pink turbinates. THROAT: No erythema or exudates. NECK: No masses, no JVD. CHEST: No chest wall deformity. LUNGS: Equal air entry with few scattered rhonchi. CVS: S1 and S2 normal with no audible murmur, regular rhythm. ABDOMEN: No hepatosplenomegaly, normal bowel sounds, no guarding or rigidity. SPINE: No scoliosis or deformity SKIN: No rashes CENTRAL NERVOUS SYSTEM: No focal deficits, tone is normal in all 4 extremities. EXTREMITIES: There is no peripheral edema. No clubbing, no cyanosis. Peripheral pulses are intact. - Labs CBC & Chem 7: 12/19/20 07:14 12/19/20 07:14 Labs: Microbiology - Last 24 Hours (Table) 12/18/20 18:01 Blood Culture - Preliminary Blood No Growth after 96 hours 12/18/20 18:01 Blood Culture - Preliminary Blood No Growth after 96 hours Assessment and Plan Assessment: 1 Acute hypoxic respiratory failure related to acute COVID-19 pneumonia, with onset of symptoms 3-4 days prior to presentation. Patient is non-vaccinated for COVID-19, he will be started on Remdesivir on 12/19/2020 2 Chronic bronchial asthma, mild intermittent 3 Obstructive sleep apnea not on CPAP 4 Obesity with BMI 32.6 kg/m 5 Previous episode of atrial fibrillation in the past, currently in sinus mechanism 6 Remote history of chronic tobacco dependency 7 Hypothyroidism Plan: The patient was seen and evaluated by Dr. Alexandro Davalos from the pulmonary standpoint Could be discharged home today after her fifth dose of Remdesivir May require home oxygen I, the cosigning physician, performed a history & physical examination of the patient. Lungs sounds with few scattered rhonchi. Maintaining good O2 saturations in the 90s on 2 L/m per nasal cannula. I discussed the assessment and plan of care with my nurse practitioner, Nusrat Cha. I attest to the above note as dictated by her.
[2020-12-23 15:42] VITALS: BP 137/74; RESP 18; TEMP 98.2
--- NOTE | 2020-12-23 18:03 | PN ---
PROGRESS NOTE DATE OF SERVICE: 12/23/2020 REASON FOR FOLLOWUP: COVID-19 pneumonia. INTERVAL HISTORY: The patient is afebrile. The patient is feeling better, breathing comfortably. The patient denies having any chest pain. Cough has decreased in intensity. No abdominal pain or diarrhea. PHYSICAL EXAMINATION: Blood pressure 137/74, pulse of 56, temperature 98.2. She is 93% on 2 L nasal cannula. General description is an elderly female up in the bed in no distress. RESPIRATORY SYSTEM: Unlabored breathing. Decreased intensity of breath sounds. No wheeze. HEART: S1, S2. Regular rate and rhythm. ABDOMEN: Soft. No tenderness. LABS: No new labs been obtained today. DIAGNOSTIC IMPRESSION AND PLAN: Patient with acute COVID-19 pneumonia in this patient who has shown overall clinical improvement. She has completed a five-day course of remdesivir. Currently on dexamethasone, Lovenox, zinc and ascorbic acid. Continue supportive care. MMODL / IJN: [id number] /
--- NOTE | 2020-12-25 10:47 | P.PN ---
Subjective Progress Note Date: 12/22/20 Principal diagnosis: Acute COVID-19 pneumonia 70 and female with a known history of obstructive sleep apnea, chronic bronchial last month, GERD, hypertension, hyperlipidemia, osteoarthritis, hypothyroidism and depression presents to ER with complaints of worsening shortness of breath and generalized weakness and fatigue. Patient was also having nausea and vomiting for the past 3-4 days mainly nonbilious. Presented to ER due to worsening shortness of breath. Next and no complaints of chest pain. Denied any headache or dizziness or lightheadedness. Patient was febrile with T-max of 101.9 on admission. Pulse ox was 91% on room air. Chest x-ray showed findings suggestive COPD. Correlate for chronic interstitial lung disease or interstitial pneumonitis. EKG showed normal sinus rhythm, low-voltage QRS. Laboratory data showed sodium 1:30 potassium 3.8 chloride 98 bicarb is 21 BUN 15 and creatinine 0.8 to Ferritin 922, AST 46 ALT 26 alk phos 51 D is 7-8 and CRP 4.1 COVID-19 PCR detected. Objective - Vital Signs Vital signs: Vital Signs Temp 98 F 12/22/20 14:12 Pulse 53 L 12/22/20 14:12 Resp 18 12/22/20 14:12 BP 151/71 12/22/20 14:12 Pulse Ox 94 L 12/22/20 14:12 Intake & Output 12/21/20 12/22/20 12/22/20 18:59 06:59 18:59 Intake Total 120 Output Total 400 Balance -280 Intake: Oral 120 Output: Urine 400 Other: Voiding Method Toilet Toilet # Voids 1 - Exam PHYSICAL EXAMINATION: GENERAL: The patient is alert and oriented x3, not in any acute distress. Well developed, well nourished. HEENT: Pupils are round and equally reacting to light. EOMI. No scleral icterus. No conjunctival pallor. Normocephalic, atraumatic. No pharyngeal erythema. No thyromegaly. CARDIOVASCULAR: S1 and S2 present. No murmurs, rubs, or gallops. PULMONARY: Chest is clear to auscultation, no wheezing or crackles. ABDOMEN: Soft, nontender, nondistended, normoactive bowel sounds. No palpable organomegaly. MUSCULOSKELETAL: No joint swelling or deformity. EXTREMITIES: No cyanosis, clubbing, or pedal edema. NEUROLOGICAL: Gross neurological examination did not reveal any focal deficits. SKIN: No rashes. - Labs CBC & Chem 7: 12/19/20 07:14 12/19/20 07:14 Labs: Abnormal Lab Results - Last 24 Hours (Table) 12/22/20 Range/Units 06:05 C-Reactive Protein 2.3 H (<1.0) mg/dL Microbiology - Last 24 Hours (Table) 12/18/20 18:01 Blood Culture - Preliminary Blood No Growth after 72 hours 12/18/20 18:01 Blood Culture - Preliminary Blood No Growth after 72 hours Assessment and Plan Assessment: Acute COVID-19 pneumonia. Elevated inflammatory markers secondary to COVID-19 infection Obstructive sleep apnea not on CPAP at home Chronic bronchial asthma Hypothyroidism Hypertension Hyperlipidemia Osteoarthritis GERD History O palpitations Depression DVT prophylaxis. Plan: Patient will be continued on dexamethasone and Lovenox subcu. Patient qualifies for them dissuade course. Pulmonary and ID is on board. Next and continue with albuterol inhalation as needed and follow up closely. Contact and droplet precautions.
== END 2020-12-23 17:02 | disposition home or self-care (01) | DRG 177 ==
LOC: EC 14:57 → 4SSUR 19:43
PROVIDERS: ADMIT Hospitalist; ATTEND Hospitalist
PROC: 8E0ZXY6 Isolation (ICD-10-PCS; 2020-12-18)
PROC: 3E0333Z Introduction of Anti-inflammatory into Peripheral Vein, Percutaneous Approach (ICD-10-PCS; 2020-12-18)
PROC: XW033E5 Introduction of Remdesivir Anti-infective into Peripheral Vein, Percutaneous Approach, New Technology Group 5 (ICD-10-PCS; principal; 2020-12-19)
DX: U07.1 COVID-19 (principal); J12.82 Pneumonia due to coronavirus disease 2019; J96.01 Acute respiratory failure with hypoxia; E87.1 Hypo-osmolality and hyponatremia; E03.9 Hypothyroidism, unspecified; E66.9 Obesity, unspecified; E78.5 Hyperlipidemia, unspecified; E86.0 Dehydration; F32.9 Major depressive disorder, single episode, unspecified; G47.33 Obstructive sleep apnea (adult) (pediatric); I10 Essential (primary) hypertension; I48.91 Unspecified atrial fibrillation; J45.20 Mild intermittent asthma, uncomplicated; K21.9 Gastro-esophageal reflux disease without esophagitis; Z68.32 Body mass index [BMI] 32.0-32.9, adult; M19.90 Unspecified osteoarthritis, unspecified site; Z79.890 Hormone replacement therapy; Z88.8 Allergy status to other drugs, medicaments and biological substances
CPT/HCPCS: 36415; 71045; 71046; 80048; 80053; 82728; 83605; 83615; 83735; 84145; 85025; 85379; 85610; 85730; 86140; 87040; 87635; 93005; 94640; 94760; 96374; 99285

== ENCOUNTER → 2021-03-23 | Outpatient (CLI) | payer MEDICARE ==
--- NOTE | 2021-03-23 15:54 | US ---
EXAMINATION TYPE: US carotid duplex BILAT DATE OF EXAM: 03/23/2021 COMPARISON: NONE CLINICAL HISTORY: LVH, HTN, AORTIC VALVE STENOSIS. Pt states changes in her vision EXAM MEASUREMENTS: RIGHT: Peak Systolic Velocity (PSV) cm/sec ----- Right CCA: 82.0 ----- Right ICA: 84.2 ----- Right ECA: 174.6 ICA/CCA ratio: 1.0 RIGHT: End Diastole cm/sec ----- Right CCA: 16.0 ----- Right ICA: 19.3 ----- Right ECA: 17.0 LEFT: Peak Systolic Velocity (PSV) cm/sec ----- Left CCA: 144.7 ----- Left ICA: 101.7 ----- Left ECA: 93.1 ICA/CCA ratio: 0.7 LEFT: End Diastole cm/sec ----- Left CCA: 23.6 ----- Left ICA: 25.4 ----- Left ECA: 12.8 VERTEBRALS (direction of flow): Right Vertebral: Antegrade Left Vertebral: Antegrade Rhythm: Normal No significant stenosis seen IMPRESSION: 1. No significant limiting stenosis bilateral internal carotid arteries. 2. Note is made of some elevated velocity of the right external Celexa. Criteria for Assigning % of Stenosis / Diameter reduction (Estimation based on the indirect measurements of the internal carotid artery velocities (ICA PSV). 1. Normal (no stenosis)=ICA PSV < 125 cm/s: ratio < 2.0: ICA EDV<40 cm/s. 2. Less than 50% stenosis=ICA PSV < 125 cm/s: ratio < 2.0: ICA EDV<40 cm/s. 3. 50 to 69% stenosis=ICA PSV of 125 to 230 cm/s: ration 2.0 ? 4.0: ICA EDV 40-100 cm/s. 4. Greater than 70% stenosis to near occlusion= ICA PSV > 230 cm/s: ratio > 4.0: ICA EDV > 100 cm/s. 5. Near occlusion= ICA PSV velocities may be low or undetectable: variable ratio and ICA EDV. 6. Total occlusion=unable to detect flow.
--- NOTE | 2021-03-24 12:48 | ECHOF ---
Referral Reason:Z78.0 post menopausal without HRT MEASUREMENTS -------- HEIGHT: 162.6 cm WEIGHT: 86.2 kg BP: IVSd: 1.1 cm (0.6 - 1.1) LVIDd: 4.9 cm (3.9 - 5.3) LVPWd: 1.1 cm (0.6 - 1.1) EDV(Teich): 114 ml IVSs: 1.8 cm LVIDs: 2.5 cm LVPWs: 1.6 cm %IVS Thck: 59 % ESV(Teich): 23 ml EF(Teich): 80 % %FS: 49 % SV(Teich): 91 ml LA Diam: 3.5 cm (2.7 - 3.8) RVIDd: 3.1 cm (< 3.3) LALs A4C: 5.1 cm LAAs A4C: 16.8 cm LAESV A-L A4C: 48 ml LAESV MOD A4C: 44 ml LALs A2C: 5.2 cm LAAs A2C: 14.9 cm LAESV A-L A2C: 36 ml LAESV MOD A2C: 34 ml LAESV(A-L): 42 ml LAESV Index (A-L): 21.93 ml/m Ao Diam: 3.1 cm (2.0 - 3.7) AV Cusp: 1.9 cm (1.5 - 2.6) EPSS: 0.1 cm MV E Jamie: 0.86 m/s MV DecT: 196 ms MV Dec [place]: 4.4 m/s MV A Jamie: 1.07 m/s MV E/A Ratio: 0.81 MV PHT: 57 ms AV Vmax: 1.44 m/s AV maxP.30 mmHg AR Vmax: 3.43 m/s AR maxP.12 mmHg AR PHT: 760 ms AR Dec Time: 2622 ms AR Dec [place]: 1.3 m/s TR Vmax: 2.83 m/s TR maxP.98 mmHg RAP: 5.00 mmHg RVSP: 36.98 mmHg MV EF SLOPE: 75.23 mm/s (70 - 150) MV EXCURSION: 14.23 mm (> 18.000) FINDINGS -------- Sinus rhythm. This was a technically adequate study. The left ventricular size is normal. There is borderline concentric left ventricular hypertrophy. Overall left ventricular systolic function is normal with, an EF between 60 - 65 %. The right ventricle is normal in size. Normal LA size by volume 22+/-6 ml/m2. The right atrium is normal in size. There is mild aortic regurgitation. Mild mitral regurgitation is present. Mild tricuspid regurgitation present. There is mild pulmonary hypertension. The right ventricular systolic pressure, as measured by Doppler, is 36.98mmHg. The pulmonic valve is normal. The aortic root size is normal. IVC Not well visulized. There is no pericardial effusion. CONCLUSIONS -------- 1. The left ventricular size is normal. 2. There is borderline concentric left ventricular hypertrophy. 3. Overall left ventricular systolic function is normal with, an EF between 60 - 65 %. 4. There is mild aortic regurgitation. 5. Mild mitral regurgitation is present. 6. Mild tricuspid regurgitation present. 7. There is mild pulmonary hypertension. 8. The right ventricular systolic pressure, as measured by Doppler, is 36.98mmHg. 9. There is no pericardial effusion. [employer]IC: Christine Hollis RDCS
--- NOTE | 2021-03-26 15:23 | BD ---
EXAMINATION TYPE: Axial Bone Density DATE OF EXAM: 03/23/2021 COMPARISON: 03/20/2018 CLINICAL HISTORY: Height: 62.5 IN Weight: 194 LBS RISK FACTORS HISTORY OF: Active: MODERATE Diet low in dairy products/other sources of calcium: YES Postmenopausal woman: TOTAL HYST AGE 52 MEDICATIONS: Thyroid Medications: YES Which medication: Synthroid How Lon+ YEARS Osteoporosis Medications: NOT NOW Which medication: Fosamax How Long: NOT SURE Additional Medications: CALCIUM, VIT D, SYNTHROID, WATER PILL, BLOOD PRESSURE MEDS, STOMACH MEDS, UNI PHL,EFFEXOR, ZINC, BABY ASPIRIN, EXAM MEASUREMENTS: Bone mineral densitometry was performed using the SMART System. Bone mineral density as measured about the Lumbar spine is: ----- L1-L4(G/cm2): 1.107 T Score Values are as follows: ----- L2: -1.1 ----- L3: -0.3 ----- L4: -0.4 ----- L1-L4: -0.6 Bone mineral density has: Decreased -1.0% since study of: 03/20/2018 Bone mineral density about the R hip (g/cm2): 0.672 Bone mineral density about the L hip (g/cm2): 0.727 T Score values are as follows: -----R Neck: -2.6 -----L Neck: -2.2 -----R Total: -2.4 -----L Total: -2.2 Bone mineral density has: Decreased -0.1% since study of: 03/20/2018 IMPRESSION: Osteoporosis (T Score less than -2.5). There is increased fracture risk and therapy is usually indicated based on age. Re-Screen 1-2 years. NOTE: T-SCORE=SD OF THE YOUNG ADULT MEAN.
== END | disposition home or self-care (01) ==
LOC: RADECHMAIN 14:35
PROVIDERS: ATTEND Family Medicine
DX: I08.3 Combined rheumatic disorders of mitral, aortic and tricuspid valves (principal); M81.0 Age-related osteoporosis without current pathological fracture; I27.20 Pulmonary hypertension, unspecified; I10 Essential (primary) hypertension; Z78.0 Asymptomatic menopausal state
CPT/HCPCS: 77080; 93306; 93880

== ENCOUNTER → 2021-05-10 | Outpatient (CLI) | payer MEDICARE ==
--- NOTE | 2021-05-10 15:09 | US ---
EXAMINATION TYPE: US thyroid st tissue head/neck DATE OF EXAM: 05/10/2021 COMPARISON: NONE CLINICAL HISTORY: K11.8 PAROTID NODULE. Right parotid follow up. No abnormalities seen right parotid. Scanned left side for comparison wnl. IMPRESSION: 1. Right parotid gland as visualized appears normal.
== END | disposition home or self-care (01) ==
LOC: RADUSWWP 14:39
PROVIDERS: ATTEND Otolaryngology
DX: K11.8 Other diseases of salivary glands (principal)
CPT/HCPCS: 76536

== ENCOUNTER → 2021-08-28 | Outpatient (CLI) | payer MEDICARE ==
--- NOTE | 2021-08-29 08:24 | MM ---
Reason for Exam: Screening (asymptomatic). Last mammogram was performed 1 year(s) and 3 month(s) ago. Patient History: Menarche at age 14. First Full-Term at age 21. Left ovary removed at age 37. Right ovary removed at age 37. Hysterectomy at age 37. Postmenopausal. Estrogen for 1 year from age 37 until age 38. Risk Values: Socorro 5 year model risk: 1.2%. NCI Lifetime model risk: 3.9%. Prior Study Comparison: 03/20/2018 Bilateral Screening Mammogram, [facility]. 05/25/2019 Bilateral Screening Mammogram, [facility]. 06/07/2020 Bilateral Screening Mammogram, [facility]. Tissue Density: There are scattered fibroglandular densities. Findings: Analyzed By CAD. Chronic nodularity is within the lateral right breast. No suspicious groups of microcalcifications, spiculated or lobular masses, architectural distortion or other secondary signs of malignancy are mammographically apparent. Overall Assessment: Benign, BI-RAD 2 Management: Screening Mammogram of both breasts in 1 year. A negative mammogram report should not preclude additional follow up of suspicious palpable abnormalities. Patient should continue monthly self breast exam. A clinical breast exam by your physician is recommended on an annual basis and results should be correlated with mammographic findings. Electronically signed and approved by: Yunier Richmond D.O. Radiologis
== END | disposition home or self-care (01) ==
LOC: RADMAMWWP 12:50
PROVIDERS: ATTEND Family Medicine
DX: Z12.31 Encounter for screening mammogram for malignant neoplasm of breast (principal)
CPT/HCPCS: 77063; 77067

== ENCOUNTER → 2022-11-21 | Outpatient (CLI) | payer MEDICARE ==
--- NOTE | 2022-11-21 19:59 | XR ---
EXAMINATION TYPE: XR Hip 2 views RT and AP Pelvis DATE OF EXAM: 11/21/2022 COMPARISON: NONE HISTORY: 72-year-old female M25.551, right hip pain FINDINGS: SI joints appear symmetric and intact as does the pubic symphysis. The hips are also intact. There ma y be very minimal early degenerative spurring at the hips but relative preservation of joint space. N o acute fracture, subluxation, or dislocation. Small pelvic phleboliths. Nonspecific soft tissue calc ifications projecting at the right lower quadrant. IMPRESSION: No acute osseous abnormality seen.
== END | disposition home or self-care (01) ==
LOC: RADXRMAIN 14:25
PROVIDERS: ATTEND Family Medicine
DX: M25.551 Pain in right hip (principal)
CPT/HCPCS: 73502

== ENCOUNTER → 2022-12-13 | Outpatient (CLI) | payer MEDICARE ==
--- NOTE | 2022-12-13 22:47 | MR ---
EXAMINATION TYPE: MR lumbar spine wo con DATE OF EXAM: 12/13/2022 7:40 PM CLINICAL INDICATION:Female, 72 years old with history of M54.16 RADICULOPATHY, LUMBAR REGION; PHH, Ba ck pain into Right side and now starting in the left COMPARISON: None TECHNIQUE: Multi planar, multi sequence imaging was performed utilizing: T1-weighted, T2-weighted, a nd turbo inversion recovery imaging of the lumbar spine. IV Contrast: (None if empty) FINDINGS: Alignment: The lumbar vertebral bodies have preserved heights and alignment. Cord: The conus medullaris and the distal spinal cord appear unremarkable with regards to their signa l intensity and morphology. Bones/Discs: Mild to moderate disc degeneration changes with disc space narrowing, osteophytes and Mo dic endplate changes. Multilevel disc desiccation is present. T12-L1: No evidence of significant spinal canal stenosis or neural foraminal stenosis. L1-L2: No evidence of significant spinal canal stenosis or neural foraminal stenosis. L2-L3: No evidence of significant spinal canal stenosis or neural foraminal stenosis. L3-L4: No evidence of significant spinal canal stenosis. Facet joint arthropathy moderate bilateral n eural foraminal stenosis. L4-L5: No evidence of significant spinal canal stenosis. Facet joint arthropathy moderate bilateral n eural foraminal stenosis. L5-S1: The disc is rounded posterior morphology without significant spinal canal stenosis. Facet join t arthropathy with moderate bilateral neural foraminal stenosis. No significant spinal canal or neural foraminal stenosis in the remainder of the visualized levels. Other findings: None. IMPRESSION: 1. No definitive evidence of disc herniation or significant spinal canal stenosis. 2. Mild to moderate disc degeneration with associated osteoarthritic changes. No foraminal stenosis worse at L3-L5 with at least moderate neural foraminal stenosis.
== END | disposition home or self-care (01) ==
LOC: RADMRIMAIN 17:44
PROVIDERS: ATTEND Family Medicine
DX: M51.16 Intervertebral disc disorders with radiculopathy, lumbar region (principal); M99.73 Connective tissue and disc stenosis of intervertebral foramina of lumbar region
CPT/HCPCS: 72148

== ENCOUNTER → 2023-01-14 | Outpatient (CLI) | payer MEDICARE ==
--- NOTE | 2023-01-14 15:56 | US ---
EXAMINATION TYPE: US kidneys/renal and bladder DATE OF EXAM: 01/14/2023 COMPARISON: CT abdomen and pelvis 04/17/2018 CLINICAL INDICATION: Female, 72 years old with history of N18.30 CKD; Back pain x years; HTN; Former smoker EXAM MEASUREMENTS: Right Kidney: 9.3 x 4.1 x 4.2 cm wnl as vis; carrera vis due to patient body habitus Left Kidney: 10.5 x 5.1 x 5.2 cm wnl as vis; carrera vis due to patient body habitus Right Kidney: 9.3 x 4.1 x 4.2 cm wnl as vis; carrera vis due to patient body habitus Left Kidney: 10.5 x 5.1 x 5.2 cm wnl as vis; carrera vis due to patient body habitus Bladder: Not fully distended Bilateral Jets seen: no There is no evidence for hydronephrosis at this point in time. No nephrolithiasis is seen. Cortical medullary differentiation is maintained bilaterally No masses are identified. The urinary bladder is underdistended and anechoic. Bilateral ureteral jets are not seen. The visualized portion of the li usha is slightly hyperechoic. IMPRESSION: Limited examination due to patient body habitus. 1. No hydronephrosis or nephrolithiasis. 2. Hepatic steatosis.
== END | disposition home or self-care (01) ==
LOC: RADUSWWP 15:27
PROVIDERS: ATTEND Family Medicine
DX: I12.9 Hypertensive chronic kidney disease with stage 1 through stage 4 chronic kidney disease, or unspecified chronic kidney disease (principal); N18.30 Chronic kidney disease, stage 3 unspecified; K76.0 Fatty (change of) liver, not elsewhere classified; Z87.891 Personal history of nicotine dependence
CPT/HCPCS: 76770

== ENCOUNTER → 2023-04-21 | Outpatient (CLI) | payer MEDICARE ==
--- NOTE | 2023-04-21 18:19 | BD ---
EXAMINATION TYPE: Axial Bone Density DATE OF EXAM: 04/21/2023 CLINICAL HISTORY: 72 years old Female. ICD-10 CODE: Z78.0 POST MENOPAUSAL Height: 63 Weight: 183.3 FRAX RISK QUESTIONS: Alcohol (3 or more units per day): no Family History (Parent hip fracture): no Glucocorticoids (More than 3mos): no (Ex: prednisone, prednisolone, methylprednisolone, dexamethasone, and hydrocortisone). History of Fracture in Adulthood: no Secondary Osteoporosis: 1. Type 1 Diabetes: no 2. Hyperthyroidism: no 3. Menopause before 45: no 4. Malnutrition: no 5. Chronic liver disease: no Rheumatoid Arthritis: no Current Tobacco Use: no RISK FACTORS HISTORY OF: Surgery to Spine/Hip(right/left)/Wrist (right/left): no MEDICATIONS: Thyroid Medications: synthroid How Long: pt unsure Osteoporosis Medications: yes How Lon year EXAM MEASUREMENTS: Bone mineral densitometry was performed using the [employer] System. Bone mineral density as measured about the Lumbar spine is: ----- L1-L4(G/cm2): 1.220 T Score Values are as follows: ----- L1: 0.3 ----- L2: -0.6 ----- L3: 1.4 ----- L4: 0.1 ----- L1-L4: 0.3 Z Score Values are as follows: ----- L1: 1.4 ----- L2: 0.5 ----- L3: 2.5 ----- L4: 1.2 ----- L1-L4: 1.4 Bone mineral density has: increased 10.2 % since study of: 03.23.2021 Bone mineral density about the R hip (g/cm2): 0.751 Bone mineral density about the L hip (g/cm2): 0.754 T Score values are as follows: -----R Neck: -2.4 -----L Neck: -2.1 -----R Total: -2.0 -----L Total: -2.0 Z Score values are as follows: -----R Neck: -1.1 -----L Neck: -0.7 -----R Total: -1.0 -----L Total: -0.9 Bone mineral density has: increased 4.1 % since study of: 1.14.2021 FRAX%s: The graph provided illustrates a 14.0 % chance for a major osteoporotic fx and a 3.5% chance for the hips probability for fx in 10 years time. IMPRESSION: Osteopenia (T Score between -2.5 and -1). There is slightly increased risk of fracture and the patient may be considered for treatment. Re-Screen 2-5 years. NOTE: T-SCORE=SD OF THE YOUNG ADULT MEAN.
--- NOTE | 2023-04-22 08:15 | MM ---
Reason for Exam: Screening (asymptomatic). Last mammogram was performed 1 year(s) and 8 month(s) ago. Patient History: Menarche at age 14. First Full-Term at age 21. Left ovary removed at age 37. Right ovary removed at age 37. Hysterectomy at age 37. Postmenopausal. Estrogen for 1 year from age 37 until age 38. Risk Values: Socorro 5 year model risk: 1.2%. NCI Lifetime model risk: 3.7%. Prior Study Comparison: 05/25/2019 Bilateral Screening Mammogram, [facility]. 06/07/2020 Bilateral Screening Mammogram, [facility]. 08/28/2021 Bilateral MG 3D screening mammo w/cad, [facility]. Tissue Density: The breast tissue is almost entirely fat. Findings: Analyzed By CAD. There is no suspicious group of microcalcifications or new suspicious mass. Overall Assessment: Negative, BI-RAD 1 Management: Screening Mammogram of both breasts in [address] [facility] will attempt to contact patient to return for supplemental views and ultrasound if indicated. Patient should continue monthly self-breast exams. A clinical breast exam by your physician is recommended on an annual basis. This exam should not preclude additional follow-up of suspicious palpable abnormalities. Note on Socorro scores and lifetime risk: 1. A Socorro score greater than 3% is considered moderate risk. If this is the case, consider specialist referral to assess eligibility for a risk reducing agent. 2. If overall lifetime risk for the development of breast cancer is 20% or higher, the patient may qualify for future screening with alternating mammogram and breast MRI. Electronically signed and approved by: Niranjan Johnston DO
== END | disposition home or self-care (01) ==
LOC: RADBDWWP 09:53
PROVIDERS: ATTEND Family Medicine
DX: Z12.31 Encounter for screening mammogram for malignant neoplasm of breast (principal); Z78.0 Asymptomatic menopausal state; M85.89 Other specified disorders of bone density and structure, multiple sites
CPT/HCPCS: 77063; 77067; 77080

== ENCOUNTER → 2023-08-11 | Outpatient (CLI) | payer MEDICARE ==
[2023-08-11 13:31] VITALS: BP 183/81; PULSE 49; RESP 16; TEMP 97.3
--- NOTE | 2023-08-11 14:44 | P.PAINPG ---
PQRS Measure Charge Sheet Comment: HISTORY OF PRESENT ILLNESS: A 73 yr old female w at side as a referral from Dr Saba presents today w severe and chronic LBP > 1 yr secondary to DDD, spondylosis and facet arthropathy without myelopathy for evaluation. Pt states pain level is provoked at 9 /10 in intensity, intermittent, localized in the lumbar spine, predominantly axial, stabbing in character w occasional shooting pain towards the groin, hip and back of the LEs. Pain is provoked by over activity. Pain is alleviated by chiropractic treatments monthly x 3 yrs which ended in Mar 2021, physician guided home stretches every morning since Mar 2021. heat, medications (Ibu), topical BioFreeze Gel, repositioning and rest . Oswestry axial pain score at 29. PMH: OA, Asthma, GERD, Hyperlipidemia, HTN, GURDEEP, MDD PSH: Cholecystectomy, Hysterectomy, Bronchoscopy, L Breast Fatty Tissue Excision SH: Negative x3 FH: Daughter- Leukemia. Mo- Lung CA. Fa- Lung CA All: See list Meds: See list REVIEW OF ORGAN SYSTEMS: CONSTITUTIONAL: No fevers or chills. No recent weight loss. NEUROLOGICAL: + numbness and tingling along the distal extremities. No seizure disorders or headaches. MUSCULOSKELETAL: + pain PSYCHIATRIC: Denies current depression or suicidal thoughts. Physical Examinations : Constitutional : Cooperative , not in acute distress . Neurologic : Cranial nerve II to XII intact. No focal neurological deficits. Psychiatric : alert & oriented x 3. Matching mood & appropriate affect. Judgment & insight intact. Musculoskeletal : Cervical Spine Motor strength in the deltoid and biceps: Normal right side. Normal Left side Motor strength biceps and the wrist extensors: Normal right side . Normal left side Motor strength in the triceps muscle: Normal right side. Normal left side Deep tendon reflexes: Normal at the biceps. Normal at Brachioradialis. Normal at triceps Vertebral body tenderness to deep palpation over Cervical facet loading test: positive bilaterally Spurling test: positive bilaterally Neck distraction test: positive bilaterally Royal sign: positive bilaterally Lumbar spine Motor strength lower extremities ,thigh and legs 5/5 Right side , 5/5 Left side Deep tendon reflexes : Normal Knee Jerk. Normal Ankle Jerk Vertebral body tenderness over L5 Anderson Test positive L5-S1 R> L Lumbar facet Loading Test: positive Right / positive Left Range of motion of the lumbar spine Flexion 30 degrees, extension 10 degrees Straight Leg Raise test: Left/ Right positive at degrees Riki test: positive right / positive left. Severe tenderness over the Sacroiliac joint on the Right / Left sides Gaenslen test: positive bilaterally Seated flexion test: positive bilaterally. Sacral spine : Severe tenderness over the Sacroiliac joint: right side / left side Range of motion: Flexion of the lumbar spine <60 degrees Range of motion: Extension of the lumbar spine <20 degrees Gaenslen's Test positive Riki test: positive right side / left side Thigh Thrust Test Sacral Thrust Test Imaging: MRI non contrast of the lumbar spine from 12/13/2022 reviewed Assessment/ Plan : Lumbar DDD Recommendation of JORGE L5-S1 #1. May need a series fo injections for optimal pain relief. Risks, benefits of procedure discussed and patient verbalized understanding. Admits to anti- coagulant use or medical history of diabetes. Protocol for discontinuation/ continuation of medications eduard procedure discussed. All questions answered. I have spent greater than 30 minutes on patient care today. Dr Moss was available by phone for the evaluation of this patient. The time was used to review the medical records including relevant urine studies and Prescription history (MAPs), review of the available imaging, evaluation and examination of the patient, coordination of care with the medical staff and if applicable referring physicians, as well as creation of the medical record PQRS Narrative: Smoking Status Former smoker Home Medications: Ambulatory Orders Furosemide [Lasix] 20 mg PO DAILY 04/04/15 Levothyroxine Sodium [Synthroid] 125 mcg PO DAILY 04/04/15 Nitroglycerin Sl Tabs [Nitrostat] 0.4 mg SUBLINGUAL Q5M PRN 04/17/18 Pantoprazole Sodium 40 mg PO DAILY 04/17/18 Venlafaxine HCl ER [Effexor XR] 75 mg PO HS 04/17/18 Theophylline Anhydrous [Uniphyl] 600 mg PO HS 05/11/18 Calcium Carbonate [Calcium] 600 mg PO DAILY 12/18/20 Cholecalciferol [Vitamin D3 (25 Mcg = 1000 Iu)] 50 mcg PO DAILY 12/18/20 Magnesium Oxide [Magox 400] 400 mg PO DAILY 12/18/20 Multivitamins, Thera [Multivitamin (formulary)] 1 tab PO DAILY 12/18/20 [place]-3 Fatty Acids [[place]-3] 1,000 mg PO DAILY 12/18/20 allopurinoL [Zyloprim] 300 mg PO DAILY@1200 12/18/20 atenoloL [Tenormin] 50 mg PO DAILY 12/18/20 Acetaminophen Tab [Tylenol] 650 mg PO Q4HR PRN tab 12/23/20 Albuterol Inhaler [Ventolin Hfa Inhaler] 2 puff INHALATION RT-Q6H PRN #1 gm 12/23/20 Ascorbic Acid [Vitamin C] 500 mg PO BID #60 tab 12/23/20 Atorvastatin [Lipitor] 20 mg PO HS #30 tab 12/23/20 Cholecalciferol [Vitamin D3 (25 Mcg = 1000 Iu)] 25 mcg PO DAILY #30 tablet 12/23/20 Zinc Sulfate [Orazinc] 220 mg PO DAILY #30 cap 12/23/20 dexAMETHasone ORAL [Hexadrol] 6 mg PO DAILY #7 tab 12/23/20 Controlled Substance Measures - Controlled Substance Measures Is patient prescribed a controlled substance at discharge?: No
== END ==
LOC: PNWHC3 11:52
PROVIDERS: ATTEND Specialist
DX: M51.37 Other intervertebral disc degeneration, lumbosacral region (principal); Z87.891 Personal history of nicotine dependence; Z88.8 Allergy status to other drugs, medicaments and biological substances
CPT/HCPCS: 99211

== ENCOUNTER 2023-08-21 06:55 | Day surgery (SDC) | payer MEDICARE ==
[2023-08-20 11:36] VITALS: BMI 30.9
[2023-08-21] MEDS ORDERED: LACTATED RINGERS 1,000 ML IV SCH (07:23)
[2023-08-21 08:06] VITALS: TEMP 98.4
[2023-08-21] MEDS ORDERED: IOPAMIDOL M200 10 ML VIAL ONE (08:31)
[2023-08-21] MEDS ORDERED: methylPREDNISolone ACETATE 40 MG/ML 1 ML VIAL ONE (08:31)
--- NOTE | 2023-08-21 08:40 | P.PCN ---
Date of Procedure: 08/21/23 Procedure(s) Performed: PREOPERATIVE DIAGNOSIS: 1- Lumbar Degenerative Disc Diseases 2-Lumbar spondylosis with Facet arthropathy without myelopathy. 3-lumbar spinal stenosis POSTOPERATIVE DIAGNOSIS: 1-lumbar degenerative disc disease. 2-lumbar spondylosis with facet arthropathy without myelopathy. 3-lumbar spinal stenosis. PROCEDURE 1. Lumbar epidural steroid injection under fluoroscopic guidance at the L5-S1 level. (Fluoroscopy imaging was available in radiology department) 2. Lumbar epidurogram. ANESTHESIA: Lidocaine 1% 3 and then only. EBL: Minimal PROCEDURE INDICATION: The patient with low back pain and radiculitis symptoms unresponsive to conservative treatment. Fluoroscopy was used to optimize visualization of the needle placement and to maximize safety. PROCEDURE DESCRIPTION / TECHNIQUE: The patient was seen and identified in the preoperative area. Risks, benefits, complications including but not limited to infections ,bleeding ,allergic reaction to the medications ,nerve damage and not complete pain releife , and alternatives were discussed with the patient. The patient agreed to proceed with the procedure and signed the consent, and vital signs were stable. Patient was taken to the OR and time out was completed. The patient was placed in the prone position on procedure table and a pillow was placed under the abdomen to reduce lumbar lordosis. The lumbosacral area was prepped and draped in the usual sterile fashion.ere closely monitored during the procedure. Vital signs was monitered during the entire procedure. Using anterior-posterior fluoroscopy, the L5-S1 interlaminar space was identified and the skin over this site was marked and then infiltrated with 1% lidocaine subcutaneously. Subsequently, a 18-gauge Tuohy epidural needle was inserted and advanced toward the epidural space using the ``Loss of resistance technique and guided by AP and lateral fluoroscopy. The correct needle position in the epidural space was verified with the injection of 2 mL of the water soluble contrast dye Isovue 200 contrast and observing an excellent epidurogram with the epidural spread of the dye, after negative aspiration for blood and CSF and in the absence of paresthesias. Again after negative aspiration, a 5 ml mixture containing 40 mg of Depo-medrol ( Preservetive Free ), and 2 ml of preservative free Normal Saline, and 2 ml of preservative free lidocaine 1% solution was injected and a washout of epidurogram was seen. Needle was withdrawn intact, skin was cleansed, and bandages were applied. COMPLICATIONS: None DISPOSITION / PLANS: The patient was placed in a supine position and transferred to the recovery area in a stable condition for observation. There was no evidence of lower extremity motor or sensory deficit after the procedure. Patient was discharged from the recovery room after meeting discharge criteria. Home discharge instructions were given to the patient by the staff. The patient was reexamined prior to discharge. The patient will schedule a follow up in the clinic in 2-4 weeks.
[2023-08-21 08:48] VITALS: RESP 18
--- NOTE | 2023-08-21 08:49 | FL ---
Fluoroscopy History: LUMBAR RADICULOPATHY 5 seconds of fluoroscopic time and 2 films are submited for lumbar radiculopathy.
[2023-08-21 09:01] VITALS: BP 167/84; PULSE 56
== END 2023-08-21 09:03 | disposition home or self-care (01) ==
LOC: ORPAIN 06:55
PROVIDERS: ATTEND Specialist
DX: M47.26 Other spondylosis with radiculopathy, lumbar region (principal); M48.061 Spinal stenosis, lumbar region without neurogenic claudication; M51.16 Intervertebral disc disorders with radiculopathy, lumbar region; Z79.82 Long term (current) use of aspirin; Z79.899 Other long term (current) drug therapy; Z88.8 Allergy status to other drugs, medicaments and biological substances
CPT/HCPCS: 62323; Q9966; J1010

== ENCOUNTER → 2023-09-08 | Outpatient (CLI) | payer MEDICARE ==
[2023-09-08 12:47] VITALS: BP 137/65; PULSE 50; RESP 16
--- NOTE | 2023-09-08 13:21 | P.PAINPG ---
PQRS Measure Charge Sheet Comment: HISTORY OF PRESENT ILLNESS: A 73 yr old female w at side presents today w severe and chronic LBP > 1 yr secondary to DDD, spondylosis and facet arthropathy without myelopathy for evaluation s/p JORGE L5-S1 #1. Pt states she experienced 100% pain relief x 2 wks s/p procedure. Pt states pain level is provoked at 1 /10 in intensity, intermittent, localized in the lumbar spine, predominantly axial, stabbing in character w occasional shooting pain towards the groin, hip and back of the LEs. Pain is provoked by over activity. Pain is alleviated by chiropractic treatments monthly x 3 yrs which ended in Mar 2021, physician guided home stretches every morning since Mar 2021. heat, medications, topical, repositioning and rest . Oswestry axial pain score at 4. Interventional procedures include JORGE L5-S1 x1 Medications include Ibu, BioFreeze REVIEW OF ORGAN SYSTEMS: CONSTITUTIONAL: No fevers or chills. No recent weight loss. NEUROLOGICAL: + numbness and tingling along the distal extremities. No seizure disorders or headaches. MUSCULOSKELETAL: + pain PSYCHIATRIC: Denies current depression or suicidal thoughts. Physical Examinations : Constitutional : Cooperative , not in acute distress . Neurologic : Cranial nerve II to XII intact. No focal neurological deficits. Psychiatric : alert & oriented x 3. Matching mood & appropriate affect. Judgment & insight intact. Musculoskeletal : Cervical Spine Motor strength in the deltoid and biceps: Normal right side. Normal Left side Motor strength biceps and the wrist extensors: Normal right side . Normal left side Motor strength in the triceps muscle: Normal right side. Normal left side Deep tendon reflexes: Normal at the biceps. Normal at Brachioradialis. Normal at triceps Vertebral body tenderness to deep palpation over Cervical facet loading test: positive bilaterally Spurling test: positive bilaterally Neck distraction test: positive bilaterally Royal sign: positive bilaterally Lumbar spine Motor strength lower extremities ,thigh and legs 5/5 Right side , 5/5 Left side Deep tendon reflexes : Normal Knee Jerk. Normal Ankle Jerk Vertebral body tenderness over L5 Anderson Test positive L5-S1 R> L Lumbar facet Loading Test: positive Right / positive Left Range of motion of the lumbar spine Flexion 30 degrees, extension 10 degrees Straight Leg Raise test: Left/ Right positive at degrees Riki test: positive right / positive left. Severe tenderness over the Sacroiliac joint on the Right / Left sides Gaenslen test: positive bilaterally Seated flexion test: positive bilaterally. Sacral spine : Severe tenderness over the Sacroiliac joint: right side / left side Range of motion: Flexion of the lumbar spine <60 degrees Range of motion: Extension of the lumbar spine <20 degrees Gaenslen's Test positive Riki test: positive right side / left side Thigh Thrust Test Sacral Thrust Test Imaging: MRI non contrast of the lumbar spine from 12/13/2022 reviewed Assessment/ Plan : Lumbar DDD Will manage residual pain and may RTC on an as needed basis. All questions answered. I have spent greater than 30 minutes on patient care today. Dr Moss was available by phone for the evaluation of this patient. The time was used to review the medical records including relevant urine studies and Prescription history (MAPs), review of the available imaging, evaluation and examination of the patient, coordination of care with the medical staff and if applicable referring physicians, as well as creation of the medical record PQRS Narrative: Smoking Status Former smoker Home Medications: Ambulatory Orders Furosemide [Lasix] 20 mg PO DAILY 04/04/15 Levothyroxine Sodium [Synthroid] 125 mcg PO DAILY 04/04/15 Nitroglycerin Sl Tabs [Nitrostat] 0.4 mg SUBLINGUAL Q5M PRN 04/17/18 Pantoprazole Sodium 40 mg PO DAILY 04/17/18 Venlafaxine HCl ER [Effexor XR] 75 mg PO HS 04/17/18 Multivitamins, Thera [Multivitamin (formulary)] 1 tab PO DAILY 12/18/20 allopurinoL [Zyloprim] 300 mg PO DAILY 12/18/20 atenoloL [Tenormin] 50 mg PO DAILY 12/18/20 Albuterol Inhaler [Ventolin Hfa Inhaler] 2 puff INHALATION RT-Q6H PRN #1 gm 12/23/20 Zinc Sulfate [Orazinc] 220 mg PO DAILY #30 cap 12/23/20 Acetaminophen Tab [Tylenol] 650 mg PO Q4HR PRN 08/20/23 Alendronate Sodium [Fosamax] 70 mg PO JARVIS 08/20/23 Azelastine HCl [Astelin Nasal [place]] 137 mcg NASAL BID PRN 08/20/23 Cholecalciferol [Vitamin D3 (25 Mcg = 1000 Iu)] 75 mcg PO DAILY 08/20/23 Fluticasone/Umeclidin/Vilanter [Trelegy Ellipta 100-62.5-25] 1 inhalation INHALATION QAM 08/20/23 Controlled Substance Measures - Controlled Substance Measures Is patient prescribed a controlled substance at discharge?: No
== END ==
LOC: PNWHC3 12:03
PROVIDERS: ATTEND Specialist
DX: M51.37 Other intervertebral disc degeneration, lumbosacral region (principal); M47.817 Spondylosis without myelopathy or radiculopathy, lumbosacral region; Z87.891 Personal history of nicotine dependence; Z88.8 Allergy status to other drugs, medicaments and biological substances
CPT/HCPCS: 99211

== ENCOUNTER → 2024-06-15 | Outpatient (CLI) | payer MEDICARE ==
--- NOTE | 2024-06-15 08:42 | US ---
EXAMINATION TYPE: US abdomen limited DATE OF EXAM: 06/15/2024 COMPARISON: CT 2019 CLINICAL INDICATION: Female, 74 years old with history of Limited: R74.01 transaminitis (elevated LFT 'S); TECHNIQUE: Grayscale and color Doppler imaging of the right upper quadrant was performed. FINDINGS: EXAM MEASUREMENTS: Liver Length: 16.0 cm CBD: 0.7 cm Right Kidney: 9.8 x 3.9 x 4.4 cm Pancreas: visualized portions wnl, limited by overlying midline bowel gas Liver: increased attenuation, decreased visualization of vessels suggestive of fatty infiltrate Gallbladder: surgically absent Evidence for sonographic Bull's sign: no CBD: visualized portions wnl, limited by overlying bowel gas Right Kidney: Nonspecific perinephric fat seen around kidney Visualized liver is heterogeneously hyperechoic. This limits evaluation for focal masses. IMPRESSION: Suboptimal study. Marked diffuse fatty infiltrative hepatocellular disease remains presen t. No ascites or biliary dilatation noted. [facility], , 06/15/2024 8:40 AM
== END | disposition home or self-care (01) ==
LOC: RADUSWWP 07:46
PROVIDERS: ATTEND Family Medicine
DX: K76.0 Fatty (change of) liver, not elsewhere classified (principal); R74.01 Elevation of levels of liver transaminase levels
CPT/HCPCS: 76705

== ENCOUNTER → 2024-07-23 | Outpatient (CLI) | payer MEDICARE ==
--- NOTE | 2024-07-23 09:41 | MM ---
Reason for Exam: Screening (asymptomatic). Last mammogram was performed 1 year(s) and 3 month(s) ago. Patient History: Menarche at age 14. First Full-Term at age 21. Left ovary removed at age 37. Right ovary removed at age 37. Hysterectomy at age 37. Postmenopausal. Estrogen for 1 year from age 37 until age 38. Risk Values: Socorro 5 year model risk: 1.3%. NCI Lifetime model risk: 3.3%. Prior Study Comparison: 06/07/2020 Bilateral Screening Mammogram, [facility]. 08/28/2021 Bilateral MG 3D screening mammo w/cad, [facility]. 04/21/2023 Bilateral MG 3D screening mammo w/cad, [facility]. Tissue Density: There are scattered areas of fibroglandular density. Findings: Analyzed By CAD. Stable 4 mm oval circumscribed mass in the upper-outer aspect right breast There is no suspicious group of microcalcifications or new suspicious mass in either breast. Overall Assessment: Negative, BI-RAD 1 Management: Screening Mammogram of both breasts in 1 year. . Patient should continue monthly self-breast exams. A clinical breast exam by your physician is recommended on an annual basis. This exam should not preclude additional follow-up of suspicious palpable abnormalities. Note on Socorro scores and lifetime risk: 1. A Socorro score greater than 3% is considered moderate risk. If this is the case, consider specialist referral to assess eligibility for a risk reducing agent. 2. If overall lifetime risk for the development of breast cancer is 20% or higher, the patient may qualify for future screening with alternating mammogram and breast MRI. [facility], , 07/23/2024 9:37 AM. Electronically signed and approved by: Will Hdz M.D.
== END | disposition home or self-care (01) ==
LOC: RADMAMWWP 08:36
PROVIDERS: ATTEND Family Medicine
DX: Z12.31 Encounter for screening mammogram for malignant neoplasm of breast (principal); R92.323 Mammographic fibroglandular density, bilateral breasts; Z78.0 Asymptomatic menopausal state
CPT/HCPCS: 77063; 77067